=== PATIENT | female | born 1945 | race Caucasian/White ===

== ENCOUNTER 2021-06-11 09:27 | Inpatient (IN) | payer BC, MEDICARE ==
[~2021-06-11] VITALS: Ht 162.6 cm; Wt 89.1 kg
[2021-06-11] MEDS ORDERED: diphenhydrAMINE 25 MG TAB (BENADRYL) PO PRN (09:45)
[2021-06-11] MEDS ORDERED: CALCIUM CARBONATE 500 MG (TUMS) TAB.CHEW PO PRN (09:45)
[2021-06-11] MEDS ORDERED: ONDANSETRON 4 MG (ZOFRAN) ORAL DISSOLVE TAB PO PRN (09:45)
[2021-06-11] MEDS ORDERED: LOPERAMIDE 2 MG (IMODIUM) TABLET PO PRN (09:45)
[2021-06-11] MEDS ORDERED: ALPRAZolam 0.25 MG (XANAX) TAB PO PRN ×2 (09:45→12:45)
[2021-06-11] MEDS ORDERED: guaiFENesin/CODEINE (ROBITUSSIN AC) 10ML UDC PO PRN (09:45)
[2021-06-11] MEDS ORDERED: BISACODYL 10 MG SUPP (DULCOLAX) PR PRN (09:45)
[2021-06-11] MEDS ORDERED: MELATONIN 3 MG TABLET PO PRN (09:45)
[2021-06-11] MEDS ORDERED: LACTULOSE SYRUP 10GM/15ML (ENULOSE) 30ML UDC PO PRN (09:45)
[2021-06-11] MEDS ORDERED: DOCUSATE SODIUM 100 MG (COLACE) CAP PO PRN (09:45)
[2021-06-11] MEDS ORDERED: ACETAMINOPHEN 325 MG TABLET PO PRN (09:45)
[2021-06-11] MEDS ORDERED: FLEET ENEMA ADULT 1 EA BTL PR PRN (09:45)
[2021-06-11 12:15] VITALS: BP 127/71
--- OUTSIDE RECORDS SUMMARY | 2021-06-11 12:16 | XMS REPORT | Clinical Summary ---
Author Author [facility] Address Unknown Phone Unavailable Care Team Providers Care Part Maker Name Role Phone Eliazar Gibson MD PCP Allergies No known active allergies Medications End Date Status Medication Sig Dispensed Refills Start Date Active ALPRAZolam (XANAX) 1 MG Take 1 mg by 0 tablet mouth at bedtime as needed for Sleep. Active carvedilol (COREG) 25 MG Take 25 mg by 0 tablet mouth 2 (two) times daily with meals. Active lisinopril-hydrochlorothi Take 1 tablet 0 azide by mouth (PRINZIDE,ZESTORETIC) daily. 20-12.5 MG per tablet Active canagliflozin (INVOKANA) Take 300 mg 0 300 MG tablet by mouth every morning before breakfast. Active SITagliptin (JANUVIA) 100 Take 100 mg 0 MG tablet by mouth daily. Active omeprazole (PRILOSEC) 20 Take 20 mg by 0 MG capsule mouth daily. Active venlafaxine (EFFEXOR-XR) Take 150 mg 0 150 MG 24 hr capsule by mouth daily. Active venlafaxine (EFFEXOR-XR) Take 75 mg by 0 75 MG 24 hr capsule mouth at bedtime. Active aspirin EC (ECOTRIN) 325 Take 1 tablet 70 tablet 0 MG EC tabletIndications: (325 mg 7 Closed fracture of left total) by hip requiring operative mouth 2 (two) repair, initial encounter times daily. ([facility]) Additional Information Patient not taking. Reported on 03/17/2017 Active calcium-vitamin D Take 1 tablet 91 tablet 0 (OSCAL-500) 500-200 by mouth 7 MG-UNIT per daily. tabletIndications: Closed fracture of left hip requiring operative repair, initial encounter ([facility]) Active hydrocodone-acetaminophen Take 1 tablet 121 tablet 0 (NORCO) 7.5-325 by mouth 7 MGIndications: Closed every 6 (six) fracture of left hip hours as requiring operative needed for repair, initial encounter Moderate ([facility]) Pain. Do not exceed a daily dose of 4 tablets Additional Information Patient not taking. Reported on 04/28/2017 Active senna (SENOKOT) 8.6 MG Take 1 tablet 60 tablet 0 1 tabletIndications: Closed by mouth 7 fracture of left hip daily. requiring operative repair, initial encounter ([facility]) Active vitamin C (ASCORBIC ACID) Take 1 tablet 50 tablet 0 500 MG tabletIndications: (500 mg 7 Closed fracture of left total) by hip requiring operative mouth daily. repair, initial encounter ([facility]) Active vitamin D, Take 1 8 capsule 0 ergocalciferol, 27045 capsule 7 units CAPSIndications: (50,000 Units Closed fracture of left total) by hip requiring operative mouth every 7 repair, initial encounter days. ([facility]) Active Problems Problem Noted Date Closed fracture of left hip requiring operative repai r with routine 01/13/2017 healing, subsequent encounter Diabetes mellitus, type 2 12/19/2016 Essential hypertension 12/19/2016 Hip fracture requiring operative repair 12/19/2016 Thrombocytopenia 12/19/2016 Immunizations Name Administration Dates Next Due INFLUENZA IIV3 HD (Adults 01/08/2017, 12/31/2015, =>65 y/o-FLUZONE HD) Influenza IIV3 MDV 01/25/2013 (Multi-dose vial) Influenza TIV (HX thru 01/30/2005 Dec 13 2009) Pneumococcal Conjugate 12/11/2014 (13-valent) Pneumococcal 09/29/2008 Polysaccharide (23-valent) Td(adult), adsorbed 12/14/2013 Social History Date Tobacco Use Types Packs/Day Years Used Never Smoker Smokeless Tobacco: Never Used Sex Assigned at Date Recorded Not on file Last Filed Vital Signs Reading Time Taken Comments Vital Sign 121/45 12/22/2016 3:58 PM CDT Blood Pressure 85 12/22/2016 3:58 PM CDT Pulse 36.7 C (98.1 F) 12/22/2016 3:58 PM CDT Temperature 16 12/22/2016 3:58 PM CDT Respiratory Rate 100% 12/22/2016 3:58 PM CDT Oxygen Saturation - - Inhaled Oxygen Concentration 80.8 kg (178 lb 1.6 oz) 12/22/2016 4:00 AM CDT Weight 162.6 cm (5' 4.02") 12/22/2016 4:00 AM CDT Height 30.56 12/22/2016 4:00 AM CDT Body Mass Index Plan of Treatment Health Maintenance Due Date Last Done Comments DEXA Scan 1943 COVID-19 Vaccine (1) 1955 Annual Wellness Visit 1961 Hepatitis C Screening 1961 Zoster Vaccine (1 of 2) 1993 DTaP,Tdap,and Td Vaccines 12/15/2013 12/14/2013 (1 - Tdap) Influenza Vaccine (#1) 2020 01/08/2017, 12/31/2015, 01/15/2015, Additional history exists Pneumo-Vaccine: 65+Yrs Completed 12/11/2014, 09/29/2008 Pneumo-Vaccine: Peds (0-5 Aged Out 12/11/2014, No l onger eligible based on patient's age to Yrs) & At-Risk Patients 09/29/2008 complete this topic (6-64 Yrs) HIB Vaccines Aged Out No longer eligible based on patient's age to complete this topic IPV Vaccines Aged Out No longer eligible based on patient's age to complete this topic Meningococcal Vaccine Aged Out No longer eligib le based on patient's age to complete this topic Rotavirus Vaccines Aged Out No longer eligible based on patient's age to complete this topic Medical Devices Device Identifier Shelf Expiration Date Model / Serial / L ot Implanted Type Area Manufactur er 219.99 / / Washer 13mm 219.99 - [id number] Left: Hip * Retir ed Implanted: Qty: 1 on 12/19/2016 by *Boaz Fields MD at [facility] Results Not on filefrom Last 3 Months Insurance Type Payer Benefit Subscriber ID Effective Phone Address Plan / Dates Group WORK COMP THE ACCIDENT WORK COMP [id number] 2016- Box FUND THE Present [id number] ACCIDENT Teena, [facility] [id number] PPO BCBS BCBS BLUE [id number] 2016- [address] CHOICE Present [place] [id number] Medicare MEDICARE MEDICARE [id number] 2008-P [address] [place] [address] Advance Directives For more information, please contact: [phone] 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
--- OUTSIDE RECORDS SUMMARY | 2021-06-11 12:16 | XMS REPORT | Clinical Summary ---
Author Author [facility] Organization [facility] Address Unknown Phone Unavailable Care Team Providers Care Spot Worker Name Role Phone Eliazar Gbison MD PCP Tena Soto MD Unavailable Source Comments Some departments are not documenting in the electronic medical record. If you d o not see the information that you expected, contact [facility] department at [phone] for further assistan ce in locating additional records.[facility] Allergies Not on File Medications End Date Status Medication Sig Dispensed Refills Start Date Active sitaGLIPtin (JANUVIA) 100 Take 100 mg 0 mg tab tablet by mouth daily. Active LISINOPRIL PO Take 12.5 mg 0 by mouth daily. Active venlafaxine XR (EFFEXOR Take 225 mg 0 XR) 225 mg tablet by mouth daily. Active Omeprazole 20 mg TbEC Take by 0 mouth daily. Active carvedilol (COREG) 25 mg Take 25 mg by 0 tablet mouth twice daily with meals. Active ALPRAZolam (XANAX) 1 mg Take 1 mg by 0 tablet mouth at bedtime as needed. Active canagliflozin (INVOKANA) Take 300 mg 0 300 mg tablet by mouth daily with breakfast. Active ACETAMINOPHEN (TYLENOL Take by 0 PO) mouth. Active Problems Problem Noted Date Atypical hyperplasia of fallopian tube 09/05/2015 Overview: Formatting of this note might be differ ent from the original. 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 An in office EMB showed atypical micropapillary groups suspicio us for malignancy. A D&C was done on 02/16/2015 which was negative fo r malignancy or hyperplasia. Discussion of options given; patient wa nted surgery but elected to delay until school was out. On 08/20/2015 she underwent a TLHBSO, wit h D&C, hysteroscopy. 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 She is now being referred to my office. Pathology: 1. Endometrium: negative for hyperplasi a and malignancy. Serosa and myometrium also negative. Fallopian tub es: carcinoma in situ, serous type, 1 mm focus. Extensive stypical hyperpla deysi, bilateral. Negative for invasive malignancy. Ovaries negative. 2. D&C: [facility] 02/16/2015: atrophic endomet rium. No hyperplasia or malignancy. 3. EMB: atypical micropapillary groups suspicious for malignancy (02/01/2015 at [facility]) 4. Read here at [facility]: Final Diagnosis: A. 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 Ovaries, bilateral: No diagnostic abnor malities. Cervix: No diagnostic abnormalities. Endometrium: Atrophy; negative for hype rplasia and malignancy. Myometrium: Mural and subserosal leiomy omata. Serosa: No diagnostic abnormalities. Radiology/procedures: 1. CT: no 2. Ultrasound: 02/12/2015: ET: mildly t hickened with bilayer thickness at 7 mm. Neither ovary is well seen 3. Other: no PMH: 1. Any history of problems with heart/lung/kidney/liver/hepatitis/DM/th yroid disease/hematologic disorders/DVT: 2. DM 3.HTN 4. Arthritis- back and right shoulder 5. GERD 6. Skin cancer 7. Degenerative disk in back 8. Depression 9. Urinary incontinence 10. Uterine prolapse PSH: 1. Basal cell carcinoma left side of no se excised 2. A&P repair with sacral lig plication 1995 3. TOT and A&P repair with mesh 2008. K ept uterus 4. c-scope 2007 5. Left great toe surgery 2011 7. Cataracts 2013 8. Tubal 1974 8. 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 2. Menarche: 12 3. LMP/menopausal:1995 4. OCP/ERT/HRT: OCP x 11 years. No HRT 5. control-current: na 6. STDs: no 7. Sexually active: no 8. Fibroids/endometriosis: no 9. If premenopausal, menstrual pattern, normal: na 10. Last pap smear: 02/01/2015: negati ve SH: 1. Smoke: former smoker. 10 cig/day x 2. Drugs: no 3. ETOH: no 4. Occupation: works at [employer] in [place], [place] 5. Marital status: 6. Last colonoscopy: 2011 09. Last Mammogram: < 1 year FH: 1. Cancer: mother: uterine cancer; fath er: Prostate cancer; nieces: one with breast cancer and another with ova cynthia cancer. Testicular cancer in her grandson Last Assessment & Plan: Formatting of this note might be differ ent from the original. She does not have an invasive malignanc y, and by surgical report, there was nothing outside of the uterus/tubes/ova leslie that was suspicious. Slides reread here confirm diagnosis of STIC. Surgical staging or repeat operative in tervention is not required. She had a completion TLHBSO. She does not need chemotherapy either. However, I do recommend follow up with q 6 months with CA125 and examinations x 2 years, then yearly . Even though the laparoscopic procedure was negative, would do a CT A /P to ensure nothing else is ongoing. With respect to her family history, I r ecommend genetic testing and will make arrangements for her to see a gene tic counselor. I am especially concerned about a BRCA mutation based u maday her family history. This will help her ([facility] to keep her appointment) as well as her family. Also recommended that her niece also get alana christina. Surgical History Surgery Date Site/Laterality Comments HX HYSTERECTOMY 08/20/15 BLADDER SURGERY DILATION AND CURETTAGE Medical History Medical History Date Comments Skin cancer, basal cell Diabetes mellitus (HCC) Hypertension Family History Medical History Relation Name Comments Cancer-Thyroid Brother Cancer-Prostate Father Diabetes Maternal Grandmother Cancer-Uterine Mother Diabetes Sister Relation Name Status Comments Brother Father Maternal Grandmother Mother Sister Social History Date Tobacco Use Types Packs/Day Years Used Quit: 08/14/1988 Former Smoker Cigarettes 0.25 5 Comments Alcohol Use Standard Drinks/Week No 0 (1 standard drink = 0.6 o z pure alcohol) Sex Assigned at Date Recorded Not on file Obstetrics History Last Filed Vital Signs Reading Time Taken Comments Vital Sign 120/49 09/06/2015 2:42 PM CDT Blood Pressure 64 09/06/2015 2:42 PM CDT Pulse 36.4 C (97.6 F) 09/06/2015 2:42 PM CDT Temperature - - Respiratory Rate 99% 09/06/2015 2:42 PM CDT Oxygen Saturation - - Inhaled Oxygen Concentration 79.9 kg (176 lb 3.2 oz) 09/06/2015 2:42 PM CDT Weight 167.6 cm (5' 6") 09/06/2015 2:42 PM CDT Height 28.44 09/06/2015 2:42 PM CDT Body Mass Index Plan of Treatment Health Maintenance Due Date Last Done Comments COVID-19 VACCINE (1) 1948 DTAP/TDAP VACCINES (1 - 1961 Tdap) HEPATITIS C SCREENING 1961 PHYSICAL (COMPREHENSIVE) 1961 EXAM SHINGLES RECOMBINANT 1993 VACCINE (1 of 2) OSTEOPOROSIS 2008 SCREENING/MONITORING PNEUMONIA (PPSV23) 2008 VACCINE (1 of 1 - PPSV23) INFLUENZA VACCINE 10/14/2020 Results Not on filefrom Last 3 Months Insurance Type Payer Benefit Subscriber ID Effective Phone Address Plan / Dates Group PPO BCBS [facility] [id number] 2009-P [phone] [id number] [facility] [place] [address] Medicare MEDICARE MEDICARE [id number] 2008-P [phone] [address] resent [address] [place] [address] [address] (Home) [place] [phone] Advance Directives Patient [employer] Consultant Explanation Type Date Recorded Advance 08/28/2015 9:29 AM Directive/DPOA Care Teams Start Date End Date Spot Worker Relationship Specialty 08/29/15 Eliazar Gibson MD PCP - [address] [address] 09/04/15 Tena Soto MD [facility]st[facility] & [id number] [facility] [address] [place] [address]
--- NOTE | 2021-06-11 12:33 | PM&R Post Admission Assessment ---
PM&R HP Date of Visit: Jun 11, 2021 Time of Visit: 12:35 History of Present Illness Chief complaint: Lumbar stenosis with radiculopathy History present illness: This is a 76-year-old white female who still works at [employer] and the [employer] district who presents from home after an unsuccessful post discharge from postoperative hospital course the next day after surgery. Dr. Walsh completed the surgery and an uncomplicated manner and she was deemed stable for discharge but she had multiple falls when she and her son and daughter stayed in [place] the night after discharge and then continued issues at home causing sleep deprivation due to disrupted sleep cycle from severe lumbar spasms. Her son is visiting from [place]. Her daughter lives in [place]. Her bowels are moving so no issues there. Blood sugars are elevated so we will restart home medication and initiate a sliding scale. CC: Intermittent Sharp Back Pain due to L3-4 Lumbar Stenosis HPI: 76yo F with history of chronic axial and mechanical lower back pain with associated radicular/claudication symptoms greater on right than left LE with decreased mobility and falls presents for sharp intermittent lower back pain. On 03/07/21, MRI revealed severe central canal stenosis at L3-4 (R>L), L3 vertebral body hemangioma, and lumbar spondylosis. Has tried PT and 2x L3-4 lumbar epidural spinal injections (most recent 04/26/21) with no improvement. On 06/05/21, lumbar interbody fusion lateral direct L3-4 DLIF and posterior laminectomy was performed by Dr. Walsh. On 05/31/21, evaluated by Dr. Walsh and lumbar spine xray showed moderate to severe spondylosis at multiple levels and discharged on 06/06/21. On 06/07/21, patients daughter reports patient fell 3x: fell on her knees while getting in her car, at hotel lobby, and in her room hitting bed/floor. Another xray on 06/07/21 showed L3-4 DLIF and multilevel lumbar spondylosis. Referred to inpatient rehab at [facility] for intensive therapy and medical management. PMH: Anxiety, Arthritis, Cervical Cancer, Depression, DM, GERD, HTN, HLD PSH: Lumbar epidural steroid injection L3-4 x2, L Hip Surgery, Hysterectomy, Cheilectomy, Tubal Ligation, Bladder Suspension x2 Allergies: NKDA Meds: Lisinopril 5mg DAILY PO Carvedilol 25mg BID PO AC Cyclobenzaprine 10mg TID DAILY PRN Amitriptyline 10mg DAILY PO HS Aripiprazole 2mg DAILY PO HS Hydrocodone-acetaminophen 325mg TAB BID PRN Lisinopril-Hydrochlorothiazide 12.5mg TAB DAILY PO Omeprazole 20mg TAB DAILY PO Temazepam 15mg DAILY PO HS Venlafaxine 150mg DAILY PO HS Dapagliflozin 10mg TAB DAILY PO Glimepiride 4mg TAB BID PO AC SH: Denies smoking or alcohol use FH: Mother (Malachi Salgado) ROS: Constitutional: No chills, No fever, No weakness EENTM: No ear pain, No blurred vision, No eye pain, No throat pain Respiratory: No cough, No dyspnea on exertion, No hemoptysis Cardiovascular: No chest pain, No edema, No palpitations Gastrointestinal: No constipation, No diarrhea, No nausea, No vomiting Genitourinary: No dysuria, No frequency, No incontinence Musculoskeletal: back pain (Intermittent); No muscle pain, No neck pain Skin: No lesions, No lumps, No rash Psychiatric/Neurological: Denies Anxiety, Denies Depressed, Denies Headache Exam: General Appearance: No Apparent Distress, WD/WN, Chronically ill HEENT: PERRL/EOMI, Normal ENT Inspection, Pharynx Normal Neck: Full Range of Motion, Normal Inspection, Non Tender, Supple Respiratory: Chest Non Tender, Lungs Clear, Normal Breath Sounds, No Accessory Muscle Use, No Respiratory Distress Cardiovascular: Regular Rate, Rhythm, No Edema Gastrointestinal: Non Tender, Soft Back: Normal Inspection, No Vertebral Tenderness Extremity: Normal Inspection, Normal Range of Motion, Non Tender, No Pedal Edema Neurologic/Psychiatric: Alert, Oriented x3, No Motor/Sensory Deficits, Normal Mood/Affect Skin: Normal Color, Warm/Dry Assessment: Falls s/p L3-4 LLIF/laminectomy/MIS PSIF on 06/05/21 Chronic Mechanical Lower Back Pain Lumbar spondylosis (most severe at L1-2) HTN GERD Diabetes Mellitus HLD Depression GERD Anxiety Plan: PT OT Fall Risk Nutritional services program services assistant DVT ppx: RIZWAN Pedro Jun 11, 2021 13:54 <Created by RIZWAN MULLER > Past Tnuopse-Lastxm-Enmzup Hx Past Med/Social Hx: Reviewed Nursing Past Med/Soc Hx, Reviewed and Corrections made Patient Social History Marrital Status: single Employed/Student: employed Alcohol Use: Denies Use Smoking Status: Never a Smoker Past Medical History Surgeries: Hysterectomy, Orthopedic Cardiac: High Cholesterol, Hypertension Genitourinary: Bladder Infection Gastrointestinal: Gastroesophageal Reflux Musculoskeletal: Degenerate Disk Disease, Arthritis, Chronic Back Pain Endocrine: Diabetes, Non-Insulin dep Cancer: Cervical Psychosocial: Sleep Difficulties, Depression PM&R Allergy/Meds/Data Review Allergies Coded Allergies: No Known Drug Allergies (Unverified , 06/11/21) Home Medications Scheduled Amitriptyline HCl (Amitriptyline HCl), 10 MG PO HS, (Reported) Aripiprazole (Aripiprazole), 2 MG PO HS, (Reported) Carvedilol (Carvedilol), 25 MG PO BID, (Reported) Cyclobenzaprine HCl (Cyclobenzaprine HCl), 10 MG PO TID, (Reported) Dapagliflozin Propanediol (Farxiga), 10 MG PO DAILY, (Reported) Gabapentin (Gabapentin), 100 MG PO HS, (Reported) Glimepiride (Glimepiride), 4 MG PO BID, (Reported) Lisinopril/Hydrochlorothiazide (Lisinopril-Hctz 20-12.5 mg Tab), 1 EA PO DAILY, (Reported) Omeprazole (Omeprazole), 20 MG PO DAILY, (Reported) Temazepam (Temazepam), 15 MG PO HS, (Reported) Venlafaxine HCl (Venlafaxine HCl ER), 150 MG PO HS, (Reported) Scheduled PRN ALPRAZolam (ALPRAZolam), 0.25 MG PO BID PRN for ANXIETY, (Reported) Hydrocodone/Acetaminophen (Hydrocodone-Acetamin 7.5-325), 1 EA PO Q4H PRN for PAIN-MODERATE (5-7), (Reported) Current Medications Current Medications Reviewed Review of Systems Constitutional: see HPI, dizziness, malaise, weakness EENTM: no symptoms reported Respiratory: no symptoms reported Cardiovascular: no symptoms reported Gastrointestinal: no symptoms reported Genitourinary: decreased output Musculoskeletal: back pain, joint pain Skin: no symptoms reported Psychiatric/Neurological: Anxiety, Depressed All Other Systems Reviewed Negative Unless Noted: Yes Physical Exam Physical Exam Vital Signs Vital Signs - First Documented 06/11/21 12:15 Temp 36.1 Pulse 20 Resp 96 B/P (MAP) 127/71 (89) Pulse Ox 96 O2 Delivery Room Air Capillary Refill : Height, Weight, BMI Height: '" Weight: lbs. oz. kg; BMI Method: General Appearance: No Apparent Distress, WD/WN, Chronically ill, Obese Eyes: Bilateral Eye Normal Inspection, Bilateral Eye PERRL HEENT: PERRL/EOMI, Normal ENT Inspection, Pharynx Normal Neck: Full Range of Motion, Normal Inspection, Non Tender, Supple, Carotid Bruit Respiratory: Chest Non Tender, Lungs Clear, Normal Breath Sounds, No Accessory Muscle Use, No Respiratory Distress Cardiovascular: Regular Rate, Rhythm, No Edema, No Gallop, No JVD, No Murmur, Normal Peripheral Pulses Gastrointestinal: Normal Bowel Sounds, No Organomegaly, No Pulsatile Mass, Non Tender, Soft Back: Normal Inspection, Decreased Range of Motion, Muscle Spasm, Vertebral Tenderness Extremity: Normal Capillary Refill, Normal Inspection, Normal Range of Motion, Non Tender, No Calf Tenderness, No Pedal Edema Neurologic/Psychiatric: Alert, Oriented x3, No Motor/Sensory Deficits, dental equipment mechanic II- XII Norm as Tested, Depressed Affect Skin: Normal Color, Warm/Dry Lymphatic: No Adenopathy PM&R Medical Assessment & Plan REHAB/MEDICAL ASSESSMENT AND PLAN: REHAB IMPAIRMENT GROUP: [ ] ETIOLOGIC DIAGNOSIS: [ (condition that led to rehab admission) ] The comorbidities that impact the patients function and/or functional outcome by: [ ] REHAB PLAN: The patient is being admitted to our comprehensive inpatient rehabilitation facility and can tolerate the intensity of service consisting of at least: 180 minutes of therapy a day, 5 out of 7 days a week Rehab treatment will consist of: [ (write brief focus that includes physician, rehab nursing and therapies/modalitiesIPOC will have more specifics) ] The patient/family has a good understanding of our discharge process and will benefit from an interdisciplinary inpatient rehabilitation program. The patient has potential to make improvement and is in need of at least two of the following multidisciplinary therapies including but not limited to physical, occupational, speech, and prosthetics and orthotics. Additionally the patient will need services from respiratory, nutritional services, wound care, psychology, etc. (Customize this to each patient). Given the patients complex condition and risk of further medical complications, rehabilitation services cannot be safely or effectively provided at a lower level of care such as a long-term facility. BARRIERS TO DISCHARGE: [ ] ESTIMATED LOS: [ ] DISPOSITION: [ ] RELEVANT CHANGES SINCE PREADMISSION SCREENING: I have compared the patients medical and functional status at the time of the preadmission screening and there are: [no changes] [changes as follows: (if there is a discrepancy between the IGC/Etiologic stated on the PAS, address/clarify this as well) ] PROGNOSIS: [ ] REHABILITATION GOALS: 1. [ (specific to the patient) ] All the above goals were reviewed with the patient and he/she is in agreement. By signing this document, I acknowledge that I have personally performed a full physical examination on this patient within 24 hours of admission to this inpatient rehabilitation facility and have determined the patient to be able to tolerate the above course of treatment at an intensive level for a reasonable period of time. I will be completing a detailed individualized Plan of Care for this patient by day #4 of the patients stay based upon the Preadmission Screen, the Post-Admission Evaluation, and the therapy evaluations. Admission Dx/Comorbidities: (1) Lumbar stenosis ICD Codes: M48.061 - Spinal stenosis, lumbar region without neurogenic claudication (2) Diabetes ICD Codes: E11.9 - Type 2 diabetes mellitus without complications (3) Hypertension ICD Codes: I10 - Essential (primary) hypertension Assessment/Plan Assessment and Plan Assess & Plan/Chief Complaint Assessment: s/p L3-4 LLIF/laminectomy/MIS PSIF on 06/05/[address] Walsh uncomplicated Multiple falls following discharge from [facility] Disruptive sleep cycle postoperatively Chronic Mechanical Lower Back Pain Lumbar spondylosis (most severe at L1-2) HTN GERD Diabetes Mellitus HLD Depression GERD Anxiety Plan: Aggressive rehab Blood sugar management Home meds Supportive care CRIS CASTAEÑDA DO Jun 11, 2021 12:33
[2021-06-11] MEDS ORDERED: OMEP20CA18 PO (12:35)
[2021-06-11] MEDS ORDERED: AMT10T PO (12:35)
[2021-06-11] MEDS ORDERED: HYDR-3817 PO (12:35)
[2021-06-11] MEDS ORDERED: TEMA15CA PO (12:35)
[2021-06-11] MEDS ORDERED: ALPR0.254 PO (12:35)
[2021-06-11] MEDS ORDERED: ARIP2TAB20 PO (12:35)
[2021-06-11] MEDS ORDERED: GABA-486 PO (12:35)
[2021-06-11] MEDS ORDERED: GLIM4TAB5 PO (12:35)
[2021-06-11] MEDS ORDERED: VENL150C98 PO (12:35)
[2021-06-11] MEDS ORDERED: CYCL10TA25 PO (12:35)
[2021-06-11] MEDS ORDERED: CARV25TA PO (12:35)
[2021-06-11] MEDS ORDERED: DAPA10TA PO (12:35)
[2021-06-11] MEDS ORDERED: LISI1TAB46 PO (12:35)
[2021-06-11] MEDS ORDERED: RX-CYCLOBENZAPRINE 10 MG (FLEXERIL) TAB PPK#3 PO SCH (13:00)
--- NOTE | 2021-06-11 13:09 | Physical Therapy Evaluation ---
PT Evaluation-General Medical Diagnosis Admission Date Jun 11, 2021 at 12:03 Medical Diagnosis: lumbar laminectomy and fusion Onset Date: Jun 05, 2021 Therapy Diagnosis Therapy Diagnosis: impaired mobility Weight Bear Status back precautions, brace on when out of bed Referral Physician: Barbara Hawley DO Reason for Referral: Evaluation/Treatment Medical History Pertinent Medical History: Arthritis, DM, GERD, HTN Additional Medical History anxiety, cervical cancer, depression, hyperlipidemia Reviewed History: Yes Social History Home: Single Level Current Living Status: Alone Entry Into Home: Ramp Prior Prior Level of Function SCALE: Activities may be completed with or without assistive devices. 9-Muzeudfxdu-mprruyh completes the activity by him/herself with no assistance from a helper. 5-Set-up or Clean-up Assistance-helper sets up or cleans up; patient completes activity. Alpine assists only prior to or following the activity. 4-Supervision or Touching Assistance-helper provides verbal cues and/or touching/steadying and/or contact guard assistance as patient completes activity. Assistance may be provided throughout the activity or intermittently. 3-Partial/Moderate Assistance-helper does LESS THAN HALF the effort. Alpine lifts, holds or supports trunk or limbs, but provides less than half the effort. 2-Substantial/Maximal Assistance-helper does MORE THAN HALF the effort. Alpine lifts or holds trunk or limbs and provides more than half the effort. 1-Zkwubdava-ktrtnt does ALL the effort. Patient does none of the effort to complete the activity. Or, the assistance of 2 or more helpers is required for the patient to complete the activity. If activity was not attempted, code reason: 7-Patient Refused. 9-Not Applicable-not attempted and the patient did not perform the activity before the current illness, exacerbation or injury. 10-Not Attempted due to Environmental Limitations-(lack of equipment, weather restraints, etc.). 88-Not Attempted due to Medical Conditions or Safety Concerns. Bed Mobility: 6 Transfers (B,C,W/C): 6 Gait: 6 Indoor Mobility (Ambulation): Independent Prior Devices Use: Walker PT Evaluation-Current Subjective Patient in family transport pre tx, agrees to PT, has 6/10 pain in back. Pt/Family Goals to be independent at home Objective Patient Orientation: Person, Place, Situation back brace ROM/Strength ROM Lower Extremities WNL Strength Lower Extremities LLE (hip flexion 3/5, knee flexion 4/5, knee extension 4/5, dorsiflexion 4/5), RLE (hip flexion 3/5, knee flexion 4/5, knee extension 4/5, dorsiflexion 4/5) Sensory Vision: Functional Hearing: Functional Sensation Right Lower Extremit: Intact Sensation Left Lower Extremity: Intact Transfers Roll Left & Right (QC): 10 Sit to Lying (QC): 10 Lying to Sitting/Side of Bed(Q: 10 Sit to Stand (QC): 4 Chair/Sai-yx-Urjmu Xfer(QC): 4 Toilet Transfer (QC): 4 Car Transfer (QC): 4 Patient performs sit <-> stand and transfers with CGA. Occasional cues for positioning and safety. Gait Walk 10 feet (QC): 10 Walk 50 ft with 2 Turns(QC): 10 Walk 150 ft (QC): 10 Walking 10ft/uneven surface-QC: 10 Wheelchair Training Wheel 50 ft with 2 turns (QC): 9 Wheel 150 ft (QC): 9 Stairs 1 Step (curb) (QC): 10 4 Steps (QC): 10 12 Steps (QC): 10 Balance Sitting Static: Normal Sitting Dynamic: Normal Standing Static: Good Standing Dynamic: Good Picking up an Object (QC): 10 Assessment/Needs Patient has impaired mobility, strength, endurance. She is just CGA with transfers. Rehab Potential: Fair PT Short Term Goals Short Term Goals Time Frame: Jun 18, 2021 Roll Left & Right: 5 Sit to lyin Lying to sitting on side of be: 5 Sit to stand: 4 (SBA) Chair/oei-qz-idbkv transfer: 4 (SBA) Walk 10 feet: 4 (SBA) Walk 50 feet with two turns: 4 (SBA) Walk 150 feet: 4 (SBA) PT Cardiovascular Radiologic Technologist Goals Long-Term Goals PT Long-Term Goals Time Frame: Jul 02, 2021 Roll Left & Right (QC): 6 Sit to Lying (QC): 6 Lying-Sitting on Side/Bed(QC): 6 Sit to Stand (QC): 6 Chair/Yoi-re-Vuiuy Xfer(QC): 6 Toilet Transfer (QC): 6 Car Transfer (QC): 6 Does the Patient Walk: Yes Walk 10 feet (QC): 6 Walk 50ft with 2 Turns (QC): 6 Walk 150 ft (QC): 6 Walking 10ft on Uneven Surface: 6 1 Step (curb) (QC): 4 4 Steps (QC): 4 12 Steps (QC): 88 Picking up an Object (QC): 6 (using dairy consultant) Wheel 50 feet with 2 turns (QC: 9 Wheel 150 feet: 9 PT Plan Problem List Problem List: Activity Tolerance, Functional Strength, Safety, Balance, Gait, Transfer, Bed Mobility, ROM Treatment/Plan Treatment Plan: Continue Plan of Care Treatment Plan: Bed Mobility, Education, Functional Activity Abimael, Functional Strength, Group Therapy, Gait, Safety, Therapeutic Exercise, Transfers Treatment Duration: Jul 02, 2021 Frequency: At least 5 of 7 days/Wk (IRF) Estimated Hrs Per Day: 1.5 hours per day Patient and/or Family Agrees t: Yes Safety Risks/Education Patient Education: Transfer Techniques, Reviewed Precautions, Correct Positioning, Safety Issues Teaching Recipient: Patient Teaching Methods: Demonstration, Discussion Response to Teaching: Reinforcement Needed Discharge Recommendations Plan Patient will perform bed mobility and transfer training, balance and endurance training, functional strengthening, stair training, gait training, and education, to improve functional mobility and independence at home. Therapy Discharge Recommendati: Home & Family, Post Acute PT Time/GCodes Time In: 1155 Time Out: 1205 Total Billed Treatment Time: 10 Total Billed Treatment 1 visit SAUL ROCHA PT Jun 11, 2021 13:09
[2021-06-11] MEDS: HYDROcodone/APAP 7.5 MG/325 MG (LORTAB, LORCET PLUS) TABLET PO PRN ×3 (13:35→21:31)
--- NOTE | 2021-06-11 13:54 | Progress Note ---
RIZWAN MULLER 06/11/21 1354: Progress Note CC: Intermittent Sharp Back Pain due to L3-4 Lumbar Stenosis HPI: 76yo F with history of chronic axial and mechanical lower back pain with associated radicular/claudication symptoms greater on right than left LE with decreased mobility and falls presents for sharp intermittent lower back pain. On 03/07/21, MRI revealed severe central canal stenosis at L3-4 (R>L), L3 vertebral body hemangioma, and lumbar spondylosis. Has tried PT and 2x L3-4 lumbar epidural spinal injections (most recent 04/26/21) with no improvement. On 06/05/21, lumbar interbody fusion lateral direct L3-4 DLIF and posterior laminectomy was performed by Dr. Walsh. On 05/31/21, evaluated by Dr. Walsh and lumbar spine xray showed moderate to severe spondylosis at multiple levels and discharged on 06/06/21. On 06/07/21, patients daughter reports patient fell 3x: fell on her knees while getting in her car, at hotel lobby, and in her room hitting bed/floor. Another xray on 06/07/21 showed L3-4 DLIF and multilevel lumbar spondylosis. Referred to inpatient rehab at [facility] for intensive therapy and medical management. PMH: Anxiety, Arthritis, Cervical Cancer, Depression, DM, GERD, HTN, HLD PSH: Lumbar epidural steroid injection L3-4 x2, L Hip Surgery, Hysterectomy, Cheilectomy, Tubal Ligation, Bladder Suspension x2 Allergies: NKDA Meds: Lisinopril 5mg DAILY PO Carvedilol 25mg BID PO AC Cyclobenzaprine 10mg TID DAILY PRN Amitriptyline 10mg DAILY PO HS Aripiprazole 2mg DAILY PO HS Hydrocodone-acetaminophen 325mg TAB BID PRN Lisinopril-Hydrochlorothiazide 12.5mg TAB DAILY PO Omeprazole 20mg TAB DAILY PO Temazepam 15mg DAILY PO HS Venlafaxine 150mg DAILY PO HS Dapagliflozin 10mg TAB DAILY PO Glimepiride 4mg TAB BID PO AC SH: Denies smoking or alcohol use FH: Mother (Scleraderma, Menieres) ROS: Constitutional: No chills, No fever, No weakness EENTM: No ear pain, No blurred vision, No eye pain, No throat pain Respiratory: No cough, No dyspnea on exertion, No hemoptysis Cardiovascular: No chest pain, No edema, No palpitations Gastrointestinal: No constipation, No diarrhea, No nausea, No vomiting Genitourinary: No dysuria, No frequency, No incontinence Musculoskeletal: back pain (Intermittent); No muscle pain, No neck pain Skin: No lesions, No lumps, No rash Psychiatric/Neurological: Denies Anxiety, Denies Depressed, Denies Headache Exam: General Appearance: No Apparent Distress, WD/WN, Chronically ill HEENT: PERRL/EOMI, Normal ENT Inspection, Pharynx Normal Neck: Full Range of Motion, Normal Inspection, Non Tender, Supple Respiratory: Chest Non Tender, Lungs Clear, Normal Breath Sounds, No Accessory Muscle Use, No Respiratory Distress Cardiovascular: Regular Rate, Rhythm, No Edema Gastrointestinal: Non Tender, Soft Back: Normal Inspection, No Vertebral Tenderness Extremity: Normal Inspection, Normal Range of Motion, Non Tender, No Pedal Edema Neurologic/Psychiatric: Alert, Oriented x3, No Motor/Sensory Deficits, Normal Mood/Affect Skin: Normal Color, Warm/Dry Assessment: Falls s/p L3-4 LLIF/laminectomy/MIS PSIF on 06/05/21 Chronic Mechanical Lower Back Pain Lumbar spondylosis (most severe at L1-2) HTN GERD Diabetes Mellitus HLD Depression GERD Anxiety Plan: PT OT Fall Risk Nutritional services gate services supervisor DVT ppx: BARBARA Biggs DO 06/12/21 0558: Supervisory-Addendum Brief Verification & Attestation Participated in pt care: history, MDM, physical Personally performed: exam, history, MDM, supervision of care Care discussed with: Medical Student Procedures: n/a Results interpretation: Verified all documentation Verification and Attestation of Medical Student E/M Service A medical student performed and documented this service in my presence. I reviewed and verified all information documented by the medical student and made modifications to such information, when appropriate. I personally performed the physical exam and medical decision making. Barbara Castañeda Jun 12, 2021,05:58 RIZWAN MULLER Jun 11, 2021 13:54 BARBARA CASTAÑEDA DO Jun 12, 2021 05:58
[2021-06-11 13:56] LABS: BASOPHILS % (AUTO) 0 % (0-10); EOSINOPHILS # (AUTO) 0.1 10^3/uL (0.0-0.3); EOSINOPHILS % (AUTO) 1 % (0-10); HEMATOCRIT 34 % (35-52); HEMOGLOBIN 11.6 g/dL (11.5-16.0); LYMPHOCYTES % (AUTO) 27 % (12-44); MEAN CORPUSCULAR HEMOGLOBIN 31 pg (25-34); MEAN CORPUSCULAR HGB CONC 34 g/dL (32-36); MEAN CORPUSCULAR VOLUME 93 fL (80-99); MEAN PLATELET VOLUME 9.4 fL (9.0-12.2); MONOCYTES # (AUTO) 0.5 10^3/uL (0.0-1.0); MONOCYTES % (AUTO) 7 % (0-12); NEUTROPHILS # (AUTO) 4.8 10^3/uL (1.8-7.8); NEUTROPHILS % (AUTO) 64 % (42-75); PLATELET COUNT 238 10^3/uL (130-400); WHITE BLOOD COUNT 7.4 10^3/uL (4.3-11.0)
[2021-06-11 14:15] LABS: ALBUMIN 3.9 GM/DL (3.2-4.5); BILIRUBIN,TOTAL 1.6 MG/DL (0.1-1.0); CALCIUM 9.6 MG/DL (8.5-10.1); CREATININE SERUM 0.87 MG/DL (0.60-1.30); POTASSIUM 3.6 MMOL/L (3.6-5.0); TOTAL PROTEIN 7.3 GM/DL (6.4-8.2)
--- NOTE | 2021-06-11 14:45 | Occupational Therapy Eval ---
OT Evaluation-General/PLF Medical Diagnosis Admission Date Jun 11, 2021 at 12:03 Medical Diagnosis: lumbar laminectomy and fusion Onset Date: Jun 05, 2021 Therapy Diagnosis Therapy Diagnosis: decreased ADL status Precautions Comments Back Precaution: no bending, lifting (more than 10 lb), twisting Back brace when OOB Referral Physician: Barbara Hawley DO Referral Reason: Evaluation/Treatment Medical History Pertinent Medical History: Arthritis, DM, GERD, HTN Additional Medical History anxiety, arthritis, cancer (cervical), depression, DM, GERD, HTN, hyperlipidemia, L hip surgery Current History Pt has had chronic back pain, radiating to BLEs (affecting R>L). Pt has tried conservative tx including injections and PT, but hasn't had relief. 06/05/21 pt underwent lumbar revision surgery. She discharged home 06/06 with family support, having 3 falls by 06/07. 06/11 pt admitted to ARU for skilled therapy and medication management. Social History Home: Single Level Current Living Status: Alone Entry Into Home: Ramp Pt does have steps up into her attic area, but she doesn't go up there any more ADL-Prior Level of Function SCALE: Activities may be completed with or without assistive devices. 9-Tsdqxmoqqy-hzjsypl completes the activity by him/herself with no assistance from a helper. 5-Set-up or Clean-up Assistance-helper sets up or cleans up; patient completes activity. Elrama assists only prior to or following the activity. 4-Supervision or Touching Assistance-helper provides verbal cues and/or touchin g/steadying and/or contact guard assistance as patient completes activity. Assistance may be provided throughout the activity or intermittently. 3-Partial/Moderate Assistance-helper does LESS THAN HALF the effort. Elrama lifts, holds or supports trunk or limbs, but provides less than half the effort. 2-Substantial/Maximal Assistance-helper does MORE THAN HALF the effort. Elrama lifts or holds trunk or limbs and provides more than half the effort. 0-Uworopljv-nejinc does ALL the effort. Patient does none of the effort to complete the activity. Or, the assistance of 2 or more helpers is required for the patient to complete the activity. If activity was not attempted, code reason: 7-Patient Refused. 9-Not Applicable-not attempted and the patient did not perform the activity before the current illness, exacerbation or injury. 10-Not Attempted due to Environmental Limitations-(lack of equipment, weather restraints, etc.). 88-Not Attempted due to Medical Conditions or Safety Concerns. ADL PLOF Comments Pt reports IND with ADLs and functional mobility, using FWW as needed. Self Care: Independent Functional Cognition: Independent DME/Equipment: Bath Bench, Shower DME/Equipment Comments FWW OT Current Status Subjective Pt up in recliner, daughter and son present. Pt agreeable to OT Tx. Mental Status/Objective Patient Orientation: Person, Place, Situation Attachments: Other-See Comments (Back brace) Current Glasses/Contacts: Yes Dentures/Partials: Yes Hand Dominance: Right Upper Extremity ROM WFL, BUE shoulder flexion to approx 150 degrees. Upper Extremity Coordination WFL Upper Extremity Sensation WFL, pt has occasional numbness in UEs. Upper Extremity Strength grossly 3+/5 ADL-Treatment Eating (QC): 6 (IND with lunch) Oral Hygiene (QC): 7 Shower/Bathe Self (QC): 7 Upper Body Dressing (QC): 3 (Assistance with back brace) Lower Body Dressing (QC): 7 On/Off Footwear (QC): 2 (Pt able to doff tennis shoes, assist with doffing/donning socks and donning shoes while maintaining preautions) Toileting Hygiene (QC): 4 (SBA, pt able to manage pants and hygiene.) Other Treatments [id number] OT eval/tx: Pt in recliner, family present. Pt ate lunch as OT educated pt on rehab expectations and process. Pt and family provided information about PLOF and home set up. Pt used FWW to transfer into bathroom, completed toileting, then stood at sink to wash her hands. Pt returned to recliner. Pt attempted footwear, required max A overall in order to maintain precautions. OT educated pt on AE for footwear, able to doff socks and shoes using bookkeeping clerk. OT switched out pt's laces to elastic laces with pt's permission in order to switch shoes into a slip on shoe. Pt used sock aide to don socks, min A, and able to use LH shoe horn to don tennis shoes (with adaptive laces) with SBA. [id number]: PT/OT cotreat due to skill of 2 clinicans required which a rehabilitation liaison could not perform in order to coordinate UEs/LEs, decrease fall risk, focus on higher level balance tasks, and due to pt's limitations with pain, activity tolerance, and dynamic balance. OT focused on UEs, cues for sequencing and safety, and ADLs, PT focused on LE placement, transfers/mobility, gross overall movement, and dynamic standing balance. Pt used FWW to go into therapy gym, completing bed mobility, and balance test. Pt then stood at table, completing pipe tree, BUEs, without UE support, SBA throughout task. Pt able to complete 2 patterns, seated rest break between. Pt requests to use bathroom, used FWW to return to her room, transferring to toilet. She completed toileting, stood at sink to wash her hands. Post tx, pt standing at sink with PT, all needs met. PT present for continued tx. Education OT Patient Education: Correct positioning, Energy conservation, Modified ADL techniques, Progress toward Goal/Update tx plan, Purpose of tx/functional activities, Reviewed precautions, Rehab process, Safety issues, Transfer techniques Teaching Recipient: Patient Teaching Methods: Discussion Response to Teaching: Verbalize Understanding OT Short Term Goals Short Term Goals Time Frame: Jun 19, 2021 Shower/bathe self: 4 Upper body dressin Lower body dressin Putting on/taking off footwear: 5 OT [employer] Equipment Technician Goals [facility] Goals Time Frame: Jun 28, 2021 Eating (QC): 6 Oral Hygiene (QC): 6 Toileting Hygiene (QC): 6 Shower/Bathe Self (QC): 6 Upper Body Dressing (QC): 6 Lower Body Dressing (QC): 6 On/Off Footwear (QC): 6 1=Demonstrate adherence to instructed precautions during ADL tasks. 2=Patient will verbalize/demonstrate understanding of assistive devices/modifications for ADL. 3=Patient will improve strength/tolerance for activity to enable patient to perform ADL's. OT Education/Plan Problem List/Assessment Assessment: Decreased Activ Tolerance, Decreased UE Strength, Impaired Funct Balance, Impaired I ADL's, Impaired Self-Care Skills Discharge Recommendations Plan/Recommendations: Continue POC Treatment Plan/Plan of Care Patient would benefit from OT for education, treatment and training to promote independence in ADL's, mobility, safety and/or upper extremity function for ADL's. Plan of Care: ADL Retraining, Functional Mobility, Group Exercise/Act as Ind, UE Funct Exercise/Act Treatment Duration: Jun 28, 2021 Frequency: At least 5 of 7 days/Wk (IRF) Estimated Hrs Per Day: 1.5 hours per day Agreement: Yes Rehab Potential: Good Time/GCodes Start Time: 12:50 Stop Time: 14:20 Total Time Billed (hr/min): 90 Billed Treatment Time 1322-7367 OT eval (10'), [id number] OT tx (50'), [id number] OT/PT cotreat (30') 1, EVM (10'), ADL 3 (50'), FA 2 (30') AN ARMENDARIZ OT Jun 11, 2021 14:45
[2021-06-11] MEDS: DICLOFENAC 1% GEL 100 GM (VOLTAREN) TUBE TOP SCH ×4 (15:03→20:41)
--- NOTE | 2021-06-11 15:31 | Physical Therapy Daily Note ---
PT Daily Note-Current Subjective Patient was admitted today s/p falling secondary to loss of balance. Patient came directly from home, and states that she had a lumbar fusion, and laminectomy on June 04, 2021. Patient complains of sharp shooting pain that runs down the back of her thigh bilaterally. The pain comes on intermittently and she states that she cannot relieve it no matter what position shes in. Pain Location: Posterior Location Body Site: Thigh Pain Description: Sharp Comment: No numerical rating given. Appearance Patient in recliner post tx with nurse call, phone, tray, all needs met. Mental Status Patient Orientation: Person, Place, Time, Situation back brace Transfers SCALE: Activities may be completed with or without assistive devices. 3-Grskfnxxku-llubvhf completes the activity by him/herself with no assistance from a helper. 5-Set-up or Clean-up Assistance-helper sets up or cleans up; patient completes activity. Stanley assists only prior to or following the activity. 4-Supervision or Touching Assistance-helper provides verbal cues and/or touching/steadying and/or contact guard assistance as patient completes activity. Assistance may be provided throughout the activity or intermittently. 3-Partial/Moderate Assistance-helper does LESS THAN HALF the effort. Stanley lifts, holds or supports trunk or limbs, but provides less than half the effort. 2-Substantial/Maximal Assistance-helper does MORE THAN HALF the effort. Stanley lifts or holds trunk or limbs and provides more than half the effort. 9-Tzdmuiemt-itkyae does ALL the effort. Patient does none of the effort to complete the activity. Or, the assistance of 2 or more helpers is required for the patient to complete the activity. If activity was not attempted, code reason: 7-Patient Refused. 9-Not Applicable-not attempted and the patient did not perform the activity before the current illness, exacerbation or injury. 10-Not Attempted due to Environmental Limitations-(lack of equipment, weather restraints, etc.). 88-Not Attempted due to Medical Conditions or Safety Concerns. Roll Left & Right (QC): 6 Sit to Lying (QC): 6 Lying to Sitting/Side of Bed(Q: 6 Sit to Stand (QC): 4 Chair/Ubi-on-Jaahr Xfer(QC): 4 Weight Bearing Right Lower Extremity: Right Full Weight Bearing Left Lower Extremity: Left Full Weight Bearing back precautions, brace on when out of bed Gait Training Does the Patient Walk?: Yes Distance: 120'x3, 150'x2 Walk 10 feet (QC): 4 Walk 50 ft with 2 Turns(QC): 4 Walk 150 ft (QC): 4 Walking 10ft/uneven surface-QC: 4 Gait Persons Needed: 1 Gait Assistive Device: FWW Short step length, normal step width. Wheelchair Training Does the Pt Use a Wheelchair?: No Wheel 50 ft with 2 turns (QC): 9 Type of Wheelchair: N/A Stair Training Stair Training: Handrails/: uses walker #of Steps: 1 1 Step (curb) (QC): 4 4 Steps (QC): 88 12 Steps (QC): 88 Stairs: Pattern: Step to Balance Picking up an Object (QC): 4 (using barrel drum cutter due to back precautions) Exercises Seated Therapy Exercises: Ankle pumps, Sit to stand ([id number]), Long arc quads, Hip flexion Seated Reps: 10 Treatments Parallel Bars: Side stepping (2 loops), Side stepping on mat (2 loops), Backward walking x 2 laps. Assessment Current Status: Fair Progress Patient complained of the sharp shooting pain down the back of her thighs bilaterally throughout treatment, and was especially exacerbated doing seated exercises and prevented her from using the NuStep. Patient could tolerate ambulating long distances with a FWW and SBA, but required several sitting rest breaks throughout. During the side-stepping in parallel bars, patient demonstrated good balance without using hands on a flat hard surface, but required the use of hands for balance on the rajesh. Patient scored a 21/28 on the Tinetti balance test which labels her as a fall risk (below 24/28 is a fall risk). She was compliant with back precautions throughout treatment. Patients son was with her for the duration of treatment, and patient was left sitting in chair, with call light, tray an all needs met. PT and OT co-treated for 30 min to work on balance activities (standing balance activity with pipe fitting). PT worked on standing balance, OT worked on balance activity and UE positioning and safety. PT Short Term Goals Short Term Goals Time Frame: Jun 18, 2021 Roll Left & Right: 5 Sit to lyin Lying to sitting on side of be: 5 Sit to stand: 4 (SBA) Chair/zyz-we-cykuh transfer: 4 (SBA) Walk 10 feet: 4 (SBA) Walk 50 feet with two turns: 4 (SBA) Walk 150 feet: 4 (SBA) PT [facility] Goals [facility] Goals [facility] Goals Time Frame: Jul 02, 2021 Roll Left & Right (QC): 6 Sit to Lying (QC): 6 Lying-Sitting on Side/Bed(QC): 6 Sit to Stand (QC): 6 Chair/Uxq-aj-Sjfip Xfer(QC): 6 Toilet Transfer (QC): 6 Car Transfer (QC): 6 Does the Patient Walk: Yes Walk 10 feet (QC): 6 Walk 50ft with 2 Turns (QC): 6 Walk 150 ft (QC): 6 Walking 10ft on Uneven Surface: 6 1 Step (curb) (QC): 4 4 Steps (QC): 4 12 Steps (QC): 88 Picking up an Object (QC): 6 (using barrel drum cutter) Wheel 50 feet with 2 turns (QC: 9 Wheel 150 feet: 9 PT Plan Problem List Problem List: Activity Tolerance, Functional Strength, Safety, Balance, Gait, Transfer, ROM Treatment/Plan Treatment Plan: Continue Plan of Care Treatment Plan: Bed Mobility, Education, Functional Activity Abimael, Functional Strength, Group Therapy, Gait, Safety, Therapeutic Exercise, Transfers Treatment Duration: Jul 02, 2021 Frequency: At least 5 of 7 days/Wk (IRF) Estimated Hrs Per Day: 1.5 hours per day Patient and/or Family Agrees t: Yes Safety Risks/Education Patient Education: Gait Training, Transfer Techniques, Steps, Correct Positioning, Safety Issues Teaching Recipient: Patient, Family Teaching Methods: Demonstration, Discussion Response to Teaching: Verbalize Understanding, Return Demonstration Time/GCodes Time In: 1350 Time Out: 1520 Total Billed Treatment Time: 90 Total Billed Treatment 1 visit NM 30' EX 30' FA 30' PT and OT co-treated from 1021-3599, PT tx from 4304-0925 SAUL HERNANDEZ PT Jun 11, 2021 15:31
[2021-06-11] MEDS: VENlafaxine XR 75 MG (EFFEXOR XR) CAP PO SCH (17:23)
[2021-06-11] MEDS: GLIMEPIRIDE 4 MG (AMARYL) TAB PO SCH (17:23)
[2021-06-11] MEDS: inSUlin ASPART (NovoLOG) 1 UNIT/0.01 ML (CHARGE PER UNIT) SC SCH ×2 (17:23→20:40)
[2021-06-11] MEDS: CYCLOBENZAPRINE 10 MG (FLEXERIL) TAB PO PRN (19:56)
[2021-06-11 20:30] VITALS: BP 154/65
[2021-06-11] MEDS: DOCUSATE SODIUM 100 MG (COLACE) CAP PO SCH (20:38)
[2021-06-11] MEDS: AMITRIPTYLINE 10 MG (ELAVIL) TAB PO SCH (20:39)
[2021-06-11] MEDS: TEMAZEPAM 15 MG (RESTORIL) CAP PO SCH (20:39)
[2021-06-11] MEDS: polyethylene glycoL POWDER 17 GM (MIRALAX) PACK PO SCH (20:39)
[2021-06-11] MEDS: GABAPENTIN 100 MG (NEURONTIN) CAP PO SCH (20:39)
[2021-06-11] MEDS: SENNA W/DOCUSATE (SENOKOT S) TABLET PO SCH (20:39)
[2021-06-11] MEDS ORDERED: NON-FORMULARY MEDICATION 1 EA EA (Venlafaxine HCl (Venlafaxine HCl ER) 150 MG) PO SCH (21:00)
[2021-06-11] MEDS ORDERED: NON-FORMULARY MEDICATION 1 EA EA (Carvedilol 25 MG) PO SCH (21:00)
[2021-06-12] MEDS: HYDROcodone/APAP 7.5 MG/325 MG (LORTAB, LORCET PLUS) TABLET PO PRN ×5 (01:36→22:15)
[2021-06-12] MEDS: CYCLOBENZAPRINE 10 MG (FLEXERIL) TAB PO PRN ×3 (04:38→23:33)
--- NOTE | 2021-06-12 06:08 | Individualized Plan of Care ---
Individualized Plan of Care Rehab Nursing IPOC Order Admission Date Jun 11, 2021 at 12:03 Current Orders Orders Admission Order(Inpt,Obs,Sdc) (06/11/21 09:39) Vital Signs: Per Unit Policy ( 08,16,00 (06/11/21 09:39) Keyur Sage , (06/11/21 09:39) Sequential Compression Device (06/11/21 09:39) Director Child Development Center-Inpt Rehab Con (06/11/21 09:39) Rehab Nursing Orders-Ipoc (06/11/21 09:39) Physical Therapy Rehab Orders (06/11/21 09:39) Occupational Therapy Rehab Ord (06/11/21 09:39) Speech Therapy Rehab Orders (06/11/21 09:39) Cbc With Automated Diff (06/12/21 06:00) Comprehensive Metabolic Panel (06/12/21 06:00) Precautions (Aru) (06/11/21 09:39) Weekly Weight WEEK (06/11/21 09:39) Rehab-Intensity Of Therapy (06/11/21 09:39) Initiate Admission Nursing Pro .admission (06/11/21 09:39) Alprazolam Tablet (Xanax Tablet) (06/11/21 09:45) Calcium Carbonate Chew Tablet (Antacid C (06/11/21 09:45) Diphenhydramine Tablet (Benadryl Tablet) (06/11/21 09:45) Docusate Sodium Capsule (Colace Capsule) (06/11/21 21:00) Docusate Sodium Capsule (Colace Capsule) (06/11/21 09:45) Bisacodyl Suppository (Dulcolax Supposit (06/11/21 09:45) Lactulose Oral Solution (Enulose Oral So (06/11/21 09:45) Na Phos/Na Biphos Enema (Fleet Enema Anam (06/11/21 09:45) Guaifenesin/Codeine Syrup (Robitussin Ac (06/11/21 09:45) Loperamide Tablet (Imodium Tablet) (06/11/21 09:45) Melatonin Tablet (Melatonin Tablet) (06/11/21 09:45) Polyethylene Glycol Powder Pkt (Miralax (06/11/21 21:00) Ondansetron Oral Dissolve Tab (Zofran (06/11/21 09:45) Senna S Tablet (Senokot S Tablet) (06/11/21 21:00) Acetaminophen Tablet/Caplet (Tylenol T (06/11/21 09:45) Code/Resuscitation (06/11/21 09:39) Ambulate 08,12,20 (06/11/21 09:39) Sequential Compression Device ONCE (06/11/21 09:39) Initiate Admission Nursing Pro .admission (06/11/21 09:39) Admission Arrival Bed Request (06/11/21 12:02) Admission Arrival Bed Request (06/11/21 11:55) Cho 60g/M 0snack (16-1999 Aldo) (06/11/21 Lunch) Accucheck Achs ACHS (06/11/21 12:33) Insulin Aspart (Novolog) (Novolog (Charg (06/11/21 16:00) Alprazolam Tablet (Xanax Tablet) (06/11/21 12:45) Amitriptyline Tablet (Elavil Tablet) (06/11/21 21:00) Aripiprazole Tablet (Abilify Tablet) (06/11/21 21:00) Rx-Cyclobenzaprine Tablet (Rx-Flexeril T (06/11/21 13:00) Gabapentin Capsule/Tablet (Neurontin Cap (06/11/21 21:00) Glimepiride Tablet (Amaryl Tablet) (06/11/21 18:00) Hydrocodone/Apap 7.5/325 Tab (Lortab 7. (06/11/21 12:45) Omeprazole (Non-Formulary) (Prilosec (No (06/12/21 09:00) Temazepam Capsule (Restoril Capsule) (06/11/21 21:00) (Nf) Carvedilol (06/11/21 21:00) (Nf) Dapagliflozin Propanediol (Farxiga) (06/12/21 09:00) (Nf) Lisinopril/Hydrochlorothiazide (Lis (06/12/21 09:00) (Nf) Venlafaxine Hcl (Venlafaxine Hcl Er (06/11/21 21:00) Heating Pad (06/11/21 12:43) Diclofenac 1% Gel (Voltaren 1% Gel) (06/11/21 13:00) Cbc With Automated Diff (06/11/21 12:43) Comprehensive Metabolic Panel (06/11/21 12:43) Hemoglobin A1c (06/11/21 12:43) Carvedilol Tablet (Coreg Tablet) (06/11/21 21:00) Pantoprazole Tablet (Protonix Tablet) (06/12/21 09:00) Venlafaxine Xr Capsule (Effexor Xr Capsu (06/11/21 18:00) Lisinopril Tablet (Zestril Tablet) (06/12/21 09:00) Hydrochlorothiazide Cap/Tablet (Hctz Cap (06/12/21 09:00) Cyclobenzaprine Tablet (Flexeril Tablet) (06/11/21 13:00) Empagliflozin Tablet (Jardiance Tablet) (06/12/21 09:00) Dressing Order (Intervention) DAILY (06/12/21 10:00) Patient Visit (06/11/21 ) Pt Eval Moderate Complexity (06/11/21 ) Ex Neuromuscular, Ea 15 Min (06/11/21 ) Exercise Therap, Ea 15 Min (06/11/21 ) Functional Activities, Ea 15 (06/11/21 ) Consult Wound Care Physician (06/12/21 10:35) Oxycodone Immediate Rel Tablet (Oxyir Ta (06/12/21 11:00) Oxycodone Immediate Rel Tablet (Oxyir Ta (06/12/21 11:00) Potassium Chloride (Tablet) (Klor Con Ta (06/12/21 11:00) Patient Visit (06/12/21 ) Speech Sound Lang Comp (06/12/21 ) Treat. Speech/Lang/Voice (06/12/21 ) Glucerna (06/12/21 14:00) Patient Visit (06/12/21 ) Functional Activities, Ea 15 (06/12/21 ) Exercise Therap, Ea 15 Min (06/12/21 ) Gait Training, Ea 15 Min (06/12/21 ) Dressing Order (Intervention) DAILY (06/12/21 16:31) Post-Op Shoe (06/12/21 16:31) Nursing Communication (Order) DAILY (06/12/21 16:31) Rehab Nursing Orders: Ongoing Assess. of Cognitive Status, Ongoing Assess. of Function Status, Bladder Management, Bladder Scan, Bladder Training, Bowel Management, Bowel Training, Disease Management & Educaiton, DVT Prophylaxis, Fall Prevention, Fluid/Electrolyte/Nutrition Mgmt, Infection Prevention, Medication Management & Education, Management of Risks & Complications, Management of Skin Intergrity, Nutrition Management, Pain Management, Wound Management Intensity of Therapy to be met Patient to be seen: Min.3h per day/5 of 7d PT IPOC Problem List: Activity Tolerance, Functional Strength, Safety, Balance, Gait, Transfer, ROM Treatment Plan: Continue Plan of Care Bed Mobility, Education, Functional Activity Abimael, Functional Strength, Group Therapy, Gait, Safety, Therapeutic Exercise, Transfers Treatment Duration: Jul 02, 2021 Frequency: At least 5 of 7 days/Wk (IRF) Estimated Hrs Per Day: 1.5 hours per day OT IPOC Problems: Decreased Activ Tolerance, Decreased UE Strength, Impaired Funct Balance, Impaired I ADL's, Impaired Self-Care Skills OT Treatment, Training and Edu: Yes Plan of Care: ADL Retraining, Functional Mobility, Group Exercise/Act as Ind, UE Funct Exercise/Act Treatment Duration: Jun 28, 2021 Frequency: At least 5 of 7 days/Wk (IRF) Estimated Hrs Per Day: 1.[address] IPOC Speech Therapy Treatment Plan: Discontinue ST Treatment Duration: Jun 12, 2021 Frequency: Modified Program (IRF) Estimated Hrs Per Day: Other Director Child Development Center/Case Mgmt Director Child Development Center/Case Managemen: Discharge Planning Dietitian/Sawmill Worker Dietitian/Sawmill Worker to monitor nutritional status and make changes and/or recommendations as needed and work with speech pathology on dietary upgrades as the occur. Physician IPOC Medical Issues being managed closely and that require the 24 hour availability of a physician: Recent complicated lumbar spine surgery with multiple falls and severe pain with sleep deprivation high sugars with left foot diabetic ulcer will require close monitoring for any decompensation Medical Issues: Bowel/Bladder Function, DVT Prophylaxis, Falls Precautions, Fluid/Electrolyte/Nutrition Balance, Infection Protection, Pain Management, Wound Care Brief Synthesis of Preadmission Screen, Post-Admission Evaluation, and Therapy Evaluations: PT and OT will focus on regaining function with ADL activities with use of assistive devices in order to regain enough function to return back to independent living and living alone Medical Prognosis: Good Anticipated Length of Stay: 7 days CRIS CASTAÑEDA DO Jun 12, 2021 06:08
--- NOTE | 2021-06-12 06:08 | PM&R Progress Note ---
Subjective HPI/CC On Admission Date Seen by Provider: Jun 12, 2021 Time Seen by Provider: 09:00 Subjective/Events-last exam 06/12/2021: Patient settling in well Pain is mostly in the nighttime so we will put in oxycodone 5 mg at 2100 and 0500 as needed Bowels are moving Feels like she is moving around pretty well Checked meds and labs Diabetic foot ulcer on the left foot will need wound care evaluation Eating and drinking pretty well Review of Systems General: Fatigue, Malaise Musculoskeletal: back pain Objective Exam Vital Signs Vital Signs Date Time Temp Pulse Resp B/P (MAP) Pulse Ox O2 Delivery O2 Flow Rate FiO2 06/12/21 20:10 Room Air 06/12/21 20:00 36.2 93 20 125/59 (81) 94 Capillary Refill : General Appearance: No Apparent Distress, WD/WN, Chronically ill, Obese HEENT: PERRL/EOMI, Normal ENT Inspection, Pharynx Normal Neck: Full Range of Motion, Normal Inspection, Non Tender, Supple, Carotid Brui t Respiratory: Chest Non Tender, Lungs Clear, Normal Breath Sounds, No Accessory Muscle Use, No Respiratory Distress Cardiovascular: Regular Rate, Rhythm, No Edema, No Gallop, No JVD, No Murmur, Normal Peripheral Pulses Gastrointestinal: Normal Bowel Sounds, No Organomegaly, No Pulsatile Mass, Non Tender, Soft Back: Normal Inspection, Decreased Range of Motion, Muscle Spasm, Vertebral Tenderness Extremity: Normal Capillary Refill, Normal Inspection, Normal Range of Motion, Non Tender, No Calf Tenderness, No Pedal Edema Neurologic/Psychiatric: Alert, Oriented x3, No Motor/Sensory Deficits, residential sales II- XII Norm as Tested, Depressed Affect Skin: Normal Color, Warm/Dry Lymphatic: No Adenopathy Results/Procedures Lab Laboratory Tests 06/12/21 06:20 Patient resulted labs reviewed. FIM Transfers Therapy Code Descriptions/Definitions Functional Trinity Measure: 0=Not Assessed/NA 4=Minimal Assistance 1=Total Assistance 5=Supervision or Setup 2=Maximal Assistance 6=Modified Trinity 3=Moderate Assistance 7=Complete IndependenceSCALE: Activities may be completed with or without assistive devices. 2-Relikonvel-qossmro completes the activity by him/herself with no assistance from a helper. 5-Set-up or Clean-up Assistance-helper sets up or cleans up; patient completes activity. [place] assists only prior to or following the activity. 4-Supervision or Touching Assistance-helper provides verbal cues and/or touching/steadying and/or contact guard assistance as patient completes activity. Assistance may be provided throughout the activity or intermittently. 3-Partial/Moderate Assistance-helper does LESS THAN HALF the effort. Artie lifts, holds or supports trunk or limbs, but provides less than half the effort. 2-Substantial/Maximal Assistance-helper does MORE THAN HALF the effort. [place] lifts or holds trunk or limbs and provides more than half the effort. 2-Jahcinfmc-usqoph does ALL the effort. Patient does none of the effort to c omplete the activity. Or, the assistance of 2 or more helpers is required for the patient to complete the activity. If activity was not attempted, code reason: 7-Patient Refused. 9-Not Applicable-not attempted and the patient did not perform the activity before the current illness, exacerbation or injury. 10-Not Attempted due to Environmental Limitations-(lack of equipment, weather restraints, etc.). 88-Not Attempted due to Medical Conditions or Safety Concerns. Roll Left to Right (QC): 6 Sit to Lying (QC): 6 Sit to Stand (QC): 4 Chair/Sne-dn-Idngl Xfer(QC): 4 Car Transfer (QC): 4 Gait Training Does the Patient Walk?: Yes Distance: 120'x3, 150'x2 Walk 10 feet (QC): 4 Walk 50 ft with 2 Turns(QC): 4 Walk 150 ft (QC): 4 Walking 10ft/uneven surface-QC: 4 Gait Persons Needed: 1 Gait Assistive Device: FWW Wheelchair Training Does the Pt Use a Wheelchair?: No Wheel 50 ft with 2 turns (QC): 9 Wheel 150 ft (QC): 9 Type of Wheelchair: N/A Stair Training Stair Training: Handrails/: uses walker #of Steps: 1 1 Step (curb) (QC): 4 4 Steps (QC): 88 12 Steps (QC): 88 Stairs: Pattern: Step to Balance Picking up an Object (QC): 4 (using musical string maker due to back precautions) ADL-Treatment Eating (QC): 6 (IND with lunch) Oral Hygiene (QC): 7 Shower/Bathe Self (QC): 7 Upper Body Dressing (QC): 3 (Assistance with back brace) Lower Body Dressing (QC): 7 On/Off Footwear (QC): 2 (Pt able to doff tennis shoes, assist with doffing/donning socks and donning shoes while maintaining preautions) Toileting Hygiene (QC): 4 (SBA, pt able to manage pants and hygiene.) Assessment/Plan Assessment and Plan Assess & Plan/Chief Complaint Assessment: s/p L3-4 LLIF/laminectomy/MIS PSIF on 06/05/[address] Walsh uncomplicated Multiple falls following discharge from [facility] Disruptive sleep cycle postoperatively Chronic Mechanical Lower Back Pain Lumbar spondylosis (most severe at L1-2) HTN GERD Diabetes Mellitus HLD Depression GERD Anxiety Left diabetic foot ulcer Plan: Aggressive rehab Blood sugar management Home meds Supportive care 06/12/2021: Diabetic foot ulcer management Oxycodone at night Maintain bowel regimen (1) Lumbar stenosis (2) Diabetes (3) Hypertension RCIS CASTAÑEDA DO Jun 12, 2021 06:08
[2021-06-12] MEDS: inSUlin ASPART (NovoLOG) 1 UNIT/0.01 ML (CHARGE PER UNIT) SC SCH ×4 (06:22→20:47)
[2021-06-12 06:34] LABS: BASOPHILS % (AUTO) 0 % (0-10); EOSINOPHILS # (AUTO) 0.1 10^3/uL (0.0-0.3); EOSINOPHILS % (AUTO) 2 % (0-10); HEMATOCRIT 32 % (35-52); HEMOGLOBIN 10.8 g/dL (11.5-16.0); LYMPHOCYTES # (AUTO) 1.8 10^3/uL (1.0-4.0); LYMPHOCYTES % (AUTO) 33 % (12-44); MEAN CORPUSCULAR HEMOGLOBIN 31 pg (25-34); MEAN CORPUSCULAR HGB CONC 34 g/dL (32-36); MEAN CORPUSCULAR VOLUME 92 fL (80-99); MEAN PLATELET VOLUME 9.4 fL (9.0-12.2); MONOCYTES # (AUTO) 0.5 10^3/uL (0.0-1.0); MONOCYTES % (AUTO) 8 % (0-12); NEUTROPHILS % (AUTO) 55 % (42-75); PLATELET COUNT 178 10^3/uL (130-400); WHITE BLOOD COUNT 5.4 10^3/uL (4.3-11.0)
[2021-06-12 06:41] LABS: ALBUMIN 3.6 GM/DL (3.2-4.5); POTASSIUM 3.3 MMOL/L (3.6-5.0)
[2021-06-12 06:43] LABS: CALCIUM 9.2 MG/DL (8.5-10.1)
[2021-06-12 06:44] LABS: TOTAL PROTEIN 6.7 GM/DL (6.4-8.2)
[2021-06-12 06:46] LABS: BILIRUBIN,TOTAL 1.7 MG/DL (0.1-1.0)
[2021-06-12 06:47] LABS: CREATININE SERUM 0.74 MG/DL (0.60-1.30)
[2021-06-12 07:40] VITALS: BP 116/55
[2021-06-12] MEDS: DOCUSATE SODIUM 100 MG (COLACE) CAP PO SCH ×2 (07:55→19:34)
[2021-06-12] MEDS: polyethylene glycoL POWDER 17 GM (MIRALAX) PACK PO SCH ×2 (07:56→19:36)
[2021-06-12] MEDS: SENNA W/DOCUSATE (SENOKOT S) TABLET PO SCH ×2 (07:56→19:36)
[2021-06-12] MEDS: lisINopril 20 MG (PRINIVIL) TABLET PO SCH (08:19)
[2021-06-12] MEDS: EMPAGLIFLOZIN 10 MG TABLET (JARDIANCE) PO SCH (08:19)
[2021-06-12] MEDS: PANTOPRAZOLE 20 MG TABLET (PROTONIX) PO SCH (08:19)
[2021-06-12] MEDS: GLIMEPIRIDE 4 MG (AMARYL) TAB PO SCH ×2 (08:19→17:43)
[2021-06-12] MEDS: DICLOFENAC 1% GEL 100 GM (VOLTAREN) TUBE TOP SCH ×4 (08:20→20:42)
--- NOTE | 2021-06-12 08:38 | Occupational Ther Daily Note ---
OT Current Status-Daily Note Subjective Pt up in recliner, agreeable to OT Tx. Pt reports 10/10 this morning before pain medication, 8/10 during session after medication. Mental Status/Objective Patient Orientation: Person, Place, Time, Situation Attachments: Other-See Comments (Back Brace) ADL-Treatment Therapy Code Descriptions/Definitions Functional Staples Measure: 0=Not Assessed/NA 4=Minimal Assistance 1=Total Assistance 5=Supervision or Setup 2=Maximal Assistance 6=Modified Staples 3=Moderate Assistance 7=Complete IndependenceSCALE: Activities may be completed with or without assistive devices. 7-Axssmqwyke-nnccnlu completes the activity by him/herself with no assistance from a helper. 5-Set-up or Clean-up Assistance-helper sets up or cleans up; patient completes activity. [place] assists only prior to or following the activity. 4-Supervision or Touching Assistance-helper provides verbal cues and/or touching/steadying and/or contact guard assistance as patient completes activity. Assistance may be provided throughout the activity or intermittently. 3-Partial/Moderate Assistance-helper does LESS THAN HALF the effort. [place] lifts, holds or supports trunk or limbs, but provides less than half the effort. 2-Substantial/Maximal Assistance-helper does MORE THAN HALF the effort. [place] lifts or holds trunk or limbs and provides more than half the effort. 1-Lcyaupphd-gzvusg does ALL the effort. Patient does none of the effort to complete the activity. Or, the assistance of 2 or more helpers is required for the patient to complete the activity. If activity was not attempted, code reason: 7-Patient Refused. 9-Not Applicable-not attempted and the patient did not perform the activity before the current illness, exacerbation or injury. 10-Not Attempted due to Environmental Limitations-(lack of equipment, weather restraints, etc.). 88-Not Attempted due to Medical Conditions or Safety Concerns. Eating (QC): 6 (IND with breakfast. ) Oral Hygiene (QC): 4 (Supervision standing at sink.) Shower/Bathe Self (QC): 3 (Min A with washing LB.) Upper Body Dressing (QC): 3 (Min A with shirt/back brace.) Lower Body Dressing (QC): 2 (Max A with threading LEs, pt able to manage pant hike) On/Off Footwear: 3 (Mod A with donning gripper socks.) Toileting Hygiene (QC): 4 (supervision) Toilet Transfer (QC): 4 (supervisoin) Other Treatment Pt up in recliner, agreeable to OT Tx. Pt used FWW to perform functional mobility to bathroom, she completed toileting, showering, dressing and oral care as outlined above. Pt required min cues throughout ADLs in order to maintain back precautions. OT educated pt on AE for LE dressing, pt able to perform LBD with min A with AE. Pt sat at recliner, took medications provided by nurse, then used FWW to go to therapy gym, [facility]. In order to increase BUE strength and activity tolerance, pt placed/removed 1" pegs from foam pegboard, alternating hands, 1lb wrist weight BUEs. Pt then removed beads from heavy resistance theraputty, able to locate all but 2 beads. 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 Pt used FWW to return to her room, SBA. Post tx, pt in recliner, call light in re ach and all needs met, chair alarm on. Education OT Patient Education: Correct positioning, Energy conservation, Modified ADL techniques, Progress toward Goal/Update tx plan, Purpose of tx/functional activities, Rehab process Teaching Recipient: Patient Teaching Methods: Discussion OT Short Term Goals Short Term Goals Time Frame: Jun 19, 2021 Shower/bathe self: 4 Upper body dressin Lower body dressin Putting on/taking off footwear: 5 OT Oven Stripper Goals Oven Stripper Goals Time Frame: Jun 28, 2021 Eating (QC): 6 Oral Hygiene (QC): 6 Toileting Hygiene (QC): 6 Shower/Bathe Self (QC): 6 Upper Body Dressing (QC): 6 Lower Body Dressing (QC): 6 On/Off Footwear (QC): 6 1=Demonstrate adherence to instructed precautions during ADL tasks. 2=Patient will verbalize/demonstrate understanding of assistive devices/modifications for ADL. 3=Patient will improve strength/tolerance for activity to enable patient to perform ADL's. OT Education/Plan Problem List/Assessment Assessment: Decreased Activ Tolerance, Decreased UE Strength, Impaired Funct Balance, Impaired I ADL's, Impaired Self-Care Skills Discharge Recommendations Plan/Recommendations: Continue POC Equpiment Recommendations-D/C: House Worker General, Sock Aide Treatment Plan/Plan of Care Patient would benefit from OT for education, treatment and training to promote independence in ADL's, mobility, safety and/or upper extremity function for ADL's. Plan of Care: ADL Retraining, Functional Mobility, Group Exercise/Act as Ind, UE Funct Exercise/Act Treatment Duration: Jun 28, 2021 Frequency: At least 5 of 7 days/Wk (IRF) Estimated Hrs Per Day: 1.5 hours per day Agreement: Yes Rehab Potential: Good Time/GCodes Start Time: 07:45 Stop Time: 09:00 Total Time Billed (hr/min): 75 Billed Treatment Time 1, ADL 3 (45'), FA 2 (30') AN ARMENDARIZ OT Jun 12, 2021 08:38
[2021-06-12] MEDS ORDERED: NON-FORMULARY MEDICATION 1 EA EA (Dapagliflozin Propanediol (Farxiga) 10 MG) PO SCH (09:00)
[2021-06-12] MEDS ORDERED: OMEPRAZOLE 20 MG (PriLOSEC) CAP NON-FORMULARY PO SCH (09:00)
--- NOTE | 2021-06-12 09:59 | Physical Therapy Daily Note ---
PT Daily Note-Current Subjective Pt. agrees to Rx. States she has pain in her legs at 6/10 on and off during Rx. Pt. shares the home situation. Pain Numeric Pain Scale: 5-Moderate Pain Location: Lower Location Body Site: Calf (let and right) Pain Description: Ache Mental Status Patient Orientation: Person, Place, Normal For Age Attachments: Other-See Comments (Breg back brace) Transfers SCALE: Activities may be completed with or without assistive devices. 9-Ufntzpdszv-cauwuus completes the activity by him/herself with no assistance from a helper. 5-Set-up or Clean-up Assistance-helper sets up or cleans up; patient completes activity. [place] assists only prior to or following the activity. 4-Supervision or Touching Assistance-helper provides verbal cues and/or t ouching/steadying and/or contact guard assistance as patient completes activity. Assistance may be provided throughout the activity or intermittently. 3-Partial/Moderate Assistance-helper does LESS THAN HALF the effort. [place] lifts, holds or supports trunk or limbs, but provides less than half the effort. 2-Substantial/Maximal Assistance-helper does MORE THAN HALF the effort. [place] lifts or holds trunk or limbs and provides more than half the effort. 8-Oqzhbtmhk-zfjkbm does ALL the effort. Patient does none of the effort to complete the activity. Or, the assistance of 2 or more helpers is required for the patient to complete the activity. If activity was not attempted, code reason: 7-Patient Refused. 9-Not Applicable-not attempted and the patient did not perform the activity before the current illness, exacerbation or injury. 10-Not Attempted due to Environmental Limitations-(lack of equipment, weather restraints, etc.). 88-Not Attempted due to Medical Conditions or Safety Concerns. Roll Left & Right (QC): 6 Sit to Lying (QC): 6 Lying to Sitting/Side of Bed(Q: 6 Sit to Stand (QC): 6 Chair/Dhw-ud-Iapuy Xfer(QC): 6 log roll instruction on high low table, pt. performed this well Weight Bearing Right Lower Extremity: Right Full Weight Bearing Left Lower Extremity: Left Full Weight Bearing back precautions, brace on when out of bed Gait Training Does the Patient Walk?: Yes Walk 10 feet (QC): 6 Walk 50 ft with 2 Turns(QC): 6 Walk 150 ft (QC): 6 Gait Persons Needed: 1 Gait Assistive Device: FWW Exercises Supine Ex: Ankle pumps, Quad Set, Rolling, Glut sets, Heel Slides, Short Arc Quads, Scooting, Hip abd/add Supine Reps: 15 Seated Therapy Exercises: Ankle pumps, Sit to stand, Long arc quads, Hip flexion, Hip abd/add Seated Reps: 15 Treatments as well as above pt.was educated in donning and doffing back brace with Assessment Current Status: Good Progress pt. improving with decreased c/o pain and increased mobility PT Short Term Goals Short Term Goals Time Frame: Jun 18, 2021 Roll Left & Right: 5 Sit to lyin Lying to sitting on side of be: 5 Sit to stand: 4 (SBA) Chair/kgq-ku-bpgsd transfer: 4 (SBA) Walk 10 feet: 4 (SBA) Walk 50 feet with two turns: 4 (SBA) Walk 150 feet: 4 (SBA) PT Seafood Clerk Goals Skilled Nursing Goals PT Seafood Clerk Goals Time Frame: Jul 02, 2021 Roll Left & Right (QC): 6 Sit to Lying (QC): 6 Lying-Sitting on Side/Bed(QC): 6 Sit to Stand (QC): 6 Chair/Acj-rl-Lyeju Xfer(QC): 6 Toilet Transfer (QC): 6 Car Transfer (QC): 6 Does the Patient Walk: Yes Walk 10 feet (QC): 6 Walk 50ft with 2 Turns (QC): 6 Walk 150 ft (QC): 6 Walking 10ft on Uneven Surface: 6 1 Step (curb) (QC): 4 4 Steps (QC): 4 12 Steps (QC): 88 Picking up an Object (QC): 6 (using gas welder apprentice) Wheel 50 feet with 2 turns (QC: 9 Wheel 150 feet: 9 PT Plan Treatment/Plan Treatment Plan: Continue Plan of Care Treatment Plan: Bed Mobility, Education, Functional Activity Abimael, Functional Strength, Group Therapy, Gait, Safety, Therapeutic Exercise, Transfers Treatment Duration: Jul 02, 2021 Frequency: At least 5 of 7 days/Wk (IRF) Estimated Hrs Per Day: 1.5 hours per day Patient and/or Family Agrees t: Yes Safety Risks/Education Patient Education: Gait Training, Transfer Techniques, Correct Positioning, Reviewed Don/Doff Brace, Safety Issues Teaching Recipient: Patient Teaching Methods: Demonstration, Discussion Response to Teaching: Verbalize Understanding, Return Demonstration, Reinforcement Needed Time/GCodes Time In: 900 Time Out: 1000 Total Billed Treatment Time: 60 Total Billed Treatment 1,GT15m,EX25m,FA20m JESSICA JOHN ENDOCRINOLOGY TEACHER Jun 12, 2021 09:59
--- NOTE | 2021-06-12 12:01 | Wound Care Assessment ---
Wound Care Assessment Date Seen by Provider: Jun 12, 2021 Time Seen by Provider: 11:20 Chief Complaint Wound between first and second digits on the left foot RAMONA Angelo is a 76 year old female who presents with a wound between her first and second digit on the left foot. She states there is pain associated with the wound that feels like a razor blade is cutting through the area. She rates this pain as a 5/10 on the pain scale. She noticed the wound approximately one month ago. She has had wounds associated with her feet in the past but none that are as advanced as the current wound. She is unsure what caused the wound. She has noticed some drainage and bleeding from the wound. Her daughter encouraged her to see wound care in [place], [place]. One week ago she saw Dr. Tejeda, who manages wound care in [place], who cleaned the wound and dressed it with silver alginate as a primary dressing and gauze as a secondary. Her follow-up appointment was supposed to be today. She is currently being treated in inpatient rehab s/p recent back surgery. She has a past medical history significant for non-insulin dependent DM with a most recent A1c of 7.7. FSBS 170-240's while inpatient and insulin has been implemented. 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 ROS is positive for weakness of bilateral legs and knees and negative for h/o radiation, autoimmune processes, fever, aches, or chills. 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 Review of Systems General: No Chills, No Malaise HEENT: No Head Aches, No Visual Changes Pulmonary: Dyspnea (Intermittent); No Cough Cardiovascular: No: Chest Pain, Palpitations Gastrointestinal: No: Nausea, Vomiting, Abdominal Pain, Diarrhea, Constipation Genitourinary: Frequency, Incontinence Musculoskeletal: back pain (due to recent back surgery), foot pain (left foot pain related to wound) Neurological: Weakness (weakness of bilateral knees and legs); No: Numbness Exam Vital Signs Date Time Temp Pulse Resp B/P (MAP) Pulse Ox O2 Delivery O2 Flow Rate FiO2 06/12/21 09:00 96 Room Air 06/12/21 07:40 36.1 88 18 116/55 (75) Capillary Refill : General Appearance: WD/WN, no apparent distress, obese HEENT: No scleral icterus (R), No scleral icterus (L) Cardiovascular: regular rate, rhythm, no murmur Respiratory: lungs clear, normal breath sounds, no respiratory distress, no accessory muscle use Extremities: normal range of motion, non-tender, normal inspection, no pedal edema, pedal edema (trace bilaterally) Neurologic/Psychiatric: alert, normal mood/affect, oriented x 3, motor weakness (3/5 bilaterally with extension at the knees and dorsiflexion of the feet. 4/5 plantar flexion bilaterally. 5/5 bilaterally with flexion at knees. ); No sensory deficit (L4-S1 sensation intact bilaterally) Skin: normal color, warm/dry Skin Problem Location: lower extremities (left foot) Skin Character: lesion Campbell Grade 1 diabetic ulcer present at the base of the first and second digits on the L foot between the two digits. Ulcer measures 3 x 1.1 x 0.1 cm. There is no tunneling or undermining. Drainage is moderate in amount and serosanguineous, there is no odor. Margin displays maceration and epibole. Granulation tissue is small. Necrotic tissue is large and slough. Epithelialization is small. Deepest exposed structure appears to be fat. A silver alginate primary dressing and gauze secondary dressing were on the ulcer prior and post examination. There is also a callus present on the plantar surface of the left foot near the head of the first metatarsal. It is dry and intact with some yellow and purple coloration. Results Laboratory Tests 06/11/21 13:45: White Blood Count 7.4, Red Blood Count 3.72L, Hemoglobin 11.6, Hematocrit 34L, Mean Corpuscular Volume 93, Mean Corpuscular Hemoglobin 31, Mean Corpuscular Hemoglobin Concent 34, Red Cell Distribution Width 14.6H, Platelet Count 238, Mean Platelet Volume 9.4, Immature Granulocyte % (Auto) 1, Neutrophils (%) (Auto) 64, Lymphocytes (%) (Auto) 27, Monocytes (%) (Auto) 7, Eosinophils (%) (Auto) 1, Basophils (%) (Auto) 0, Neutrophils # (Auto) 4.8, Lymphocytes # (Auto) 2.0, Monocytes # (Auto) 0.5, Eosinophils # (Auto) 0.1, Basophils # (Auto) 0.0, Immature Granulocyte # (Auto) 0.0, Sodium Level 135, Potassium Level 3.6, Chloride Level 95L, Carbon Dioxide Level 27, Anion Gap 13, Blood Urea Nitrogen 18, Creatinine 0.87, Estimat Glomerular Filtration Rate 68, BUN/Creatinine Ratio 21, Glucose Level 267H, Mean Blood Glucose 174H, Hemoglobin A1c 7.7H, Calcium Level 9.6, Corrected Calcium 9.7, Total Bilirubin 1.6H, Aspartate Amino Transf (AST/SGOT) 22, Alanine Aminotransferase (ALT/SGPT) 22, Alkaline Phosphatase 69, Total Protein 7.3, Albumin 3.9 06/11/21 15:13: Glucometer 254H 06/11/21 20:27: Glucometer 204H 06/12/21 05:44: Glucometer 176H 06/12/21 06:20: White Blood Count 5.4, Red Blood Count 3.51L, Hemoglobin 10.8L, Hematocrit 32L, Mean Corpuscular Volume 92, Mean Corpuscular Hemoglobin 31, Mean Corpuscular Hemoglobin Concent 34, Red Cell Distribution Width 14.6H, Platelet Count 178, Mean Platelet Volume 9.4, Immature Granulocyte % (Auto) 1, Neutrophils (%) (Auto) 55, Lymphocytes (%) (Auto) 33, Monocytes (%) (Auto) 8, Eosinophils (%) (Auto) 2, Basophils (%) (Auto) 0, Neutrophils # (Auto) 3.0, Lymphocytes # (Auto) 1.8, Monocytes # (Auto) 0.5, Eosinophils # (Auto) 0.1, Basophils # (Auto) 0.0, Immature Granulocyte # (Auto) 0.0, Sodium Level 136, Potassium Level 3.3L, Chloride Level 97L, Carbon Dioxide Level 23, Anion Gap 16H, Blood Urea Nitrogen 20H, Creatinine 0.74, Estimat Glomerular Filtration Rate 83, BUN/Creatinine Ratio 27, Glucose Level 178H, Calcium Level 9.2, Corrected Calcium 9.5, Total Bilirubin 1.7H, Aspartate Amino Transf (AST/SGOT) 22, Alanine Aminotransferase (ALT/SGPT) 23, Alkaline Phosphatase 73, Total Protein 6.7, Albumin 3.6 06/12/21 11:36: Glucometer 241H Assessment/Plan/Dx Assessment: 1. Campbell Grade 1 diabetic ulcer. Primary etiology diabetic, secondary moisture. 2. DM2-poor control 3. S/p L3-4 LLIF/laminectomy/MIS PSIF on 06/05/21 4. DVT prophylaxis with Lovenox Plan: 1. Continue silver alginate as primary dressing and gauze as secondary with daily dressing changes and cleansing. Offloading with surgical shoe and elevation during rest. Monitor for changes. Arrange for follow-up with wound care provider in [place], [place] upon discharge. 2. Appreciate primary care for maintenance of DM and lowering of blood glucose levels. 3. Appreciate primary care . Supervisory-Addendum Brief Verification & Attestation Participated in pt care: history, MDM, physical Personally performed: exam, history, MDM, supervision of care Care discussed with: Medical Student Procedures: n/a Results interpretation: Verified all documentation MD CAMILA Chowdhury MIKAELA Jun 12, 2021 12:01 JANICE DE PAZ MD Jun 12, 2021 16:43
[2021-06-12] MEDS: KCL 10 MEQ TAB (MICRO K) PO SCH (12:30)
--- NOTE | 2021-06-12 12:33 | ST Cognitive Linguistic Eval ---
Speech Evaluation-General Medical Diagnosis lumbar laminectomy and fusion Onset Date: Jun 05, 2021 Therapy Diagnosis Therapy Diagnosis: Intact Cognitive Linguistic Skills Precautions Precautions: Fall Precautions/Isolations: Fall Prevention, Standard Precautions Referral Referring Physician: Dr. Barbara Hawley Reason for Referral: Evaluation/Treatment Medical History Pertinent Medical History: Arthritis, DM, GERD, HTN Current History The patient is a 76 year-old female with a past medical history of anxiety, arthritis, cervical cancer, depression, DM, GERD, HTN, and HLD, who presented to the acute rehabilitation unit following a lumbar interbody fusion, lateral direct L3-4 DLIF and posterior laminectomy. Reviewed History: Yes Social History Current Living Status: Alone Speech PLF-Current Status Prior Level of Function The patient denied recent, novel challenges to her speech, language, cognition or swallowing. The patient drinks thin liquid via straw throughout the evaluation and s/s of suspected aspiration were not demonstrated. Subjective The patient was seated upright in her recliner, awake and alert upon entrance to her room by the clinician. The patient greeted the clinician appropriately and was agreeable to participation in the cognitive linguistic evaluation. Language Eval: Auditory Comprehends Simple Yes/No Ques: Functional Indent/Objects Multiple [place]: Functional Ident/Pics in Multiple [place]: Functional Follows 1-Step Commands: Functional Follows Complex Directions: Functional Follows General Conversations: Functional Language Eval: Verbal Language Completes Spontaneous Greeting: Functional Produces Auto, Serial Info: Functional Imitates Simple Words/Phrases: Functional Word Finding: Mild Requests Basic Needs: Functional States Basic Personal Info: Functional Expresses Complex Ideas: Functional Language Evaluation: Reading Follows Simple Written Direct: Functional Language Evaluation: Writing Writes to Simple Dictation: Functional Cognitive Patient Orientation The patient was oriented to self, location, month, day of week, date, and year. Objective Cognitive Domain Attention: WNL Memory: Mild Problem Solving: Functional Executive Functions: WNL Visuospatial Skills: WNL Composite Severity Rating: WNL Clock Drawing Severity Rating: [facility] Objective Formal/Standardized Tests [facility] Mental Status ([facility]) Results The patient demonstrated a result of +28/30 on the SLUMS correlating to a cognitive linguistic rating of "normal neurocognitive skills." Oral Motor/Speech Production Dysarthria or apraxia of speech were not demonstrated throughout the evaluation. The patient remained 100% intelligible in known and unknown contexts. Impression The patient demonstrated cognitive linguistic skills within normal limits. The patient displayed two errors by providing 10 animals within a one minute time frame (WNL=15) and recalling four of five single words following a five minute delay. Speech Patient Assess Expression of Ideas/Wants: Expression (4) Understanding Verbal Content: Understands (4) Brief Interview-Mental Status: Yes Repetition of Three Words: Three (3) Temporal Orientation: Year: Correct (3) Temporal Orientation: Month: Accurate within 5 days(2) Temporal Orientation: Day: Correct (1) Recall : Wear to say "Sock": Yes, no cue required (2) Recall : Color: Yes, no cue required (2) Recall : Bed: Yes,after cueing (1) Memory/Recall Ability: Current season, Location of own room, That he or she is in a hsp/hsp unit Speech-Plan Treatment Plan Speech Therapy Treatment Plan: Discontinue ST Treatment Duration: Jun 12, 2021 Frequency: 1 time per week Estimated Hrs Per Day: .5 hour per day Rehab Potential: Good Pt/Family Agrees to Plan: Yes Safety Risks/Education Teaching Recipient: Patient Teaching Methods: Discussion Response to Teaching: Verbalize Understanding Education Topics Provided: Results of OLIVIA, Plan of Care Time Speech Therapy Time In: 10:30 Speech Therapy Time Out: 11:00 Total Billed Time: 30 Billed Treatment Time 1, DAVIAN CAVANAUGH ELIZABETH ST Jun 12, 2021 12:33
--- NOTE | 2021-06-12 13:10 | Physical Therapy Daily Note ---
PT Daily Note-Current Subjective Pt. agrees to Rx but states she is in 10/10 pain in her low back and down her right leg into her knee. Pt. states she just had pain meds. Pt. requested to go to bathroom at end of Rx. Pain Numeric Pain Scale: 10-Worst Possible Pain Location: Right (and left) Location Body Site: Thigh Pain Description: Radiating Mental Status Patient Orientation: Normal For Age Attachments: Other-See Comments (BREG back brace) Transfers SCALE: Activities may be completed with or without assistive devices. 7-Ycatwosvcp-mrkjuxn completes the activity by him/herself with no assistance from a helper. 5-Set-up or Clean-up Assistance-helper sets up or cleans up; patient completes activity. [place] assists only prior to or following the activity. 4-Supervision or Touching Assistance-helper provides verbal cues and/or touching/steadying and/or contact guard assistance as patient completes activity. Assistance may be provided throughout the activity or intermittently. 3-Partial/Moderate Assistance-helper does LESS THAN HALF the effort. [place] lifts, holds or supports trunk or limbs, but provides less than half the effort. 2-Substantial/Maximal Assistance-helper does MORE THAN HALF the effort. [place] lifts or holds trunk or limbs and provides more than half the effort. 2-[place]uzskoynk-wgmrxj does ALL the effort. Patient does none of the effort to complete the activity. Or, the assistance of 2 or more helpers is required for the patient to complete the activity. If activity was not attempted, code reason: 7-Patient Refused. 9-Not Applicable-not attempted and the patient did not perform the activity before the current illness, exacerbation or injury. 10-Not Attempted due to Environmental Limitations-(lack of equipment, weather restraints, etc.). 88-Not Attempted due to Medical Conditions or Safety Concerns. Roll Left & Right (QC): 6 Sit to Lying (QC): 4 Lying to Sitting/Side of Bed(Q: 4 Sit to Stand (QC): 6 Chair/Afg-lg-Djmvz Xfer(QC): 6 Toilet Transfer (QC): 6 Weight Bearing Right Lower Extremity: Right Full Weight Bearing Left Lower Extremity: Left Full Weight Bearing back precautions, brace on when out of bed Gait Training Does the Patient Walk?: Yes Walk 10 feet (QC): 6 Walk 50 ft with 2 Turns(QC): 6 Gait Persons Needed: 1 Gait Assistive Device: FWW to from [facility] [place] CGA good use of AD Exercises Supine Ex: Ankle pumps, Quad Set, Rolling, Glut sets, Heel Slides, Short Arc Quads, Hip abd/add Supine Reps: 15 Treatments reviewed log roll as pt. twisted slightly to get out of bed, reviewed donning brace, LE exs, as well as trial of sidelying for pain control which was not relieving for pt. so she went back on her back. Assessment Current Status: Good Progress PT Short Term Goals Short Term Goals Time Frame: Jun 18, 2021 Roll Left & Right: 5 Sit to lyin Lying to sitting on side of be: 5 Sit to stand: 4 (SBA) Chair/ooh-ar-etnap transfer: 4 (SBA) Walk 10 feet: 4 (SBA) Walk 50 feet with two turns: 4 (SBA) Walk 150 feet: 4 (SBA) PT Curriculum Developer Goals Curriculum Developer Goals PT Chcf Goals Time Frame: Jul 02, 2021 Roll Left & Right (QC): 6 Sit to Lying (QC): 6 Lying-Sitting on Side/Bed(QC): 6 Sit to Stand (QC): 6 Chair/Tri-xb-Oyrqa Xfer(QC): 6 Toilet Transfer (QC): 6 Car Transfer (QC): 6 Does the Patient Walk: Yes Walk 10 feet (QC): 6 Walk 50ft with 2 Turns (QC): 6 Walk 150 ft (QC): 6 Walking 10ft on Uneven Surface: 6 1 Step (curb) (QC): 4 4 Steps (QC): 4 12 Steps (QC): 88 Picking up an Object (QC): 6 (using woodwork salvage 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) Wheel 50 feet with 2 turns (QC: 9 Wheel 150 feet: 9 PT Plan Treatment/Plan Treatment Plan: Continue Plan of Care Treatment Plan: Bed Mobility, Education, Functional Activity Abimael, Functional Strength, Group Therapy, Gait, Safety, Therapeutic Exercise, Transfers Treatment Duration: Jul 02, 2021 Frequency: At least 5 of 7 days/Wk (IRF) Estimated Hrs Per Day: 1.5 hours per day Patient and/or Family Agrees t: Yes Safety Risks/Education Patient Education: Gait Training, Transfer Techniques, Correct Positioning, Reviewed Don/Doff Brace, Disease Process, Safety Issues Teaching Recipient: Patient Teaching Methods: Demonstration, Discussion Response to Teaching: Verbalize Understanding, Return Demonstration, Reinforcement Needed Time/GCodes Time In: 1235 Time Out: 1305 Total Billed Treatment Time: 30 Total Billed Treatment 1,FA15m,EX15m JESSICA JOHN PTA Jun 12, 2021 13:10
[2021-06-12] MEDS: VENlafaxine XR 75 MG (EFFEXOR XR) CAP PO SCH (17:43)
[2021-06-12 20:00] VITALS: BP 125/59
[2021-06-12] MEDS: GABAPENTIN 100 MG (NEURONTIN) CAP PO SCH (20:41)
[2021-06-12] MEDS: TEMAZEPAM 15 MG (RESTORIL) CAP PO SCH (20:41)
[2021-06-12] MEDS: AMITRIPTYLINE 10 MG (ELAVIL) TAB PO SCH (20:41)
[2021-06-13] MEDS: HYDROcodone/APAP 7.5 MG/325 MG (LORTAB, LORCET PLUS) TABLET PO PRN ×4 (04:43→19:25)
[2021-06-13] MEDS: CYCLOBENZAPRINE 10 MG (FLEXERIL) TAB PO PRN ×2 (05:25→14:05)
[2021-06-13] MEDS: KCL 10 MEQ TAB (MICRO K) PO SCH (06:29)
[2021-06-13] MEDS: inSUlin ASPART (NovoLOG) 1 UNIT/0.01 ML (CHARGE PER UNIT) SC SCH ×4 (06:29→20:44)
--- NOTE | 2021-06-13 06:45 | PM&R Progress Note ---
Subjective HPI/CC On Admission Date Seen by Provider: Jun 13, 2021 Time Seen by Provider: 11:00 Subjective/Events-last exam 06/13/2021: Patient doing really well during the day but nighttime is an issue I adjusted pain medication around a bit more in order to get her more comfortable at night Son and daughter at the bedside and answered all questions to the best of my ability Patient moves around really well Diabetic neuropathy is definitely a factor of her nighttime pain so we will increase Neurontin 06/12/2021: Patient settling in well Pain is mostly in the nighttime so we will put in oxycodone 5 mg at 2100 and 0500 as needed Bowels are moving Feels like she is moving around pretty well Checked meds and labs Diabetic foot ulcer on the left foot will need wound care evaluation Eating and drinking pretty well Review of Systems General: Fatigue, Malaise Musculoskeletal: back pain, leg pain Objective Exam Vital Signs Vital Signs Date Time Temp Pulse Resp B/P (MAP) Pulse Ox O2 Delivery O2 Flow Rate FiO2 06/13/21 20:45 Room Air 06/13/21 19:54 36.2 91 16 124/60 (81) 96 Capillary Refill : General Appearance: No Apparent Distress, WD/WN, Chronically ill, Obese HEENT: PERRL/EOMI, Normal ENT Inspection, Pharynx Normal Neck: Full Range of Motion, Normal Inspection, Non Tender, Supple, Carotid Bruit Respiratory: Chest Non Tender, Lungs Clear, Normal Breath Sounds, No Accessory Muscle Use, No Respiratory Distress Cardiovascular: Regular Rate, Rhythm, No Edema, No Gallop, No JVD, No Murmur, Normal Peripheral Pulses Gastrointestinal: Normal Bowel Sounds, No Organomegaly, No Pulsatile Mass, Non Tender, Soft Back: Normal Inspection, Decreased Range of Motion, Muscle Spasm, Vertebral Tenderness Extremity: Normal Capillary Refill, Normal Inspection, Normal Range of Motion, Non Tender, No Calf Tenderness, No Pedal Edema Neurologic/Psychiatric: Alert, Oriented x3, No Motor/Sensory Deficits, 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 FIM Transfers Therapy Code Descriptions/Definitions Functional [place] Measure: 0=Not Assessed/NA 4=Minimal Assistance 1=Total Assistance 5=Supervision or Setup 2=Maximal Assistance 6=Modified [place] 3=Moderate Assistance 7=Complete IndependenceSCALE: Activities may be completed with or without assistive devices. 8-Jbelhzdhzs-uegkgot completes the activity by him/herself with no assistance from a helper. 5-Set-up or Clean-up Assistance-helper sets up or cleans up; patient completes activity. [place] assists only prior to or following the activity. 4-Supervision or Touching Assistance-helper provides verbal cues and/or touching /steadying and/or contact guard assistance as patient completes activity. Assistance may be provided throughout the activity or intermittently. 3-Partial/Moderate Assistance-helper does LESS THAN HALF the effort. [place] lifts, holds or supports trunk or limbs, but provides less than half the effort. 2-Substantial/Maximal Assistance-helper does MORE THAN HALF the effort. [place] lifts or holds trunk or limbs and provides more than half the effort. 7-Uqxjpcrzp-cewvdp does ALL the effort. Patient does none of the effort to complete the activity. Or, the assistance of 2 or more helpers is required for the patient to complete the activity. If activity was not attempted, code reason: 7-Patient Refused. 9-Not Applicable-not attempted and the patient did not perform the activity before the current illness, exacerbation or injury. 10-Not Attempted due to Environmental Limitations-(lack of equipment, weather restraints, etc.). 88-Not Attempted due to Medical Conditions or Safety Concerns. Roll Left to Right (QC): 6 Sit to Lying (QC): 4 Sit to Stand (QC): 6 Chair/Djh-ai-Ulqhn Xfer(QC): 6 Car Transfer (QC): 4 Gait Training Does the Patient Walk?: Yes Distance: 120'x3, 150'x2 Walk 10 feet (QC): 6 Walk 50 ft with 2 Turns(QC): 6 Walk 150 ft (QC): 6 Walking 10ft/uneven surface-QC: 4 Gait Persons Needed: 1 Gait Assistive Device: FWW Wheelchair Training Does the Pt Use a Wheelchair?: No Wheel 50 ft with 2 turns (QC): 9 Wheel 150 ft (QC): 9 Type of Wheelchair: N/A Stair Training Stair Training: Handrails/: uses walker #of Steps: 1 1 Step (curb) (QC): 4 4 Steps (QC): 88 12 Steps (QC): 88 Stairs: Pattern: Step to Balance Picking up an Object (QC): 4 (using alteration hand due to back precautions) ADL-Treatment Eating (QC): 6 (IND with breakfast. ) Oral Hygiene (QC): 4 (Supervision standing at sink.) Shower/Bathe Self (QC): 3 (Min A with washing LB.) Upper Body Dressing (QC): 3 (Min A with shirt/back brace.) Lower Body Dressing (QC): 2 (Max A with threading LEs, pt able to manage pant hike) On/Off Footwear (QC): 3 (Mod A with donning gripper socks.) Toileting Hygiene (QC): 4 (supervision) Toilet Transfer (QC): 4 (supervisoin) Assessment/Plan Assessment and Plan Assess & Plan/Chief Complaint Assessment: s/p L3-4 LLIF/laminectomy/MIS PSIF on 06/05/[address] Walsh uncomplicated Multiple falls following discharge from [facility] Disruptive sleep cycle postoperatively Chronic Mechanical Lower Back Pain Lumbar spondylosis (most severe at L1-2) HTN GERD Diabetes Mellitus HLD Depression GERD Anxiety Left diabetic foot ulcer Plan: Aggressive rehab Blood sugar management Home meds Supportive care 06/12/2021: Diabetic foot ulcer management Oxycodone at night Maintain bowel regimen 06/13/2021: Supportive care Increase pain medication (1) Lumbar stenosis (2) Diabetes (3) Hypertension CRIS CASTAÑEDA DO Jun 13, 2021 06:45
[2021-06-13] MEDS: PANTOPRAZOLE 20 MG TABLET (PROTONIX) PO SCH (07:36)
[2021-06-13] MEDS: GLIMEPIRIDE 4 MG (AMARYL) TAB PO SCH ×2 (07:36→17:03)
[2021-06-13] MEDS: EMPAGLIFLOZIN 10 MG TABLET (JARDIANCE) PO SCH (07:36)
[2021-06-13] MEDS: lisINopril 20 MG (PRINIVIL) TABLET PO SCH (07:36)
[2021-06-13] MEDS: DOCUSATE SODIUM 100 MG (COLACE) CAP PO SCH ×2 (07:36→21:31)
[2021-06-13] MEDS: DICLOFENAC 1% GEL 100 GM (VOLTAREN) TUBE TOP SCH ×4 (07:37→20:44)
[2021-06-13 07:43] VITALS: BP 105/53
[2021-06-13] MEDS: SENNA W/DOCUSATE (SENOKOT S) TABLET PO SCH ×2 (09:24→21:31)
[2021-06-13] MEDS: polyethylene glycoL POWDER 17 GM (MIRALAX) PACK PO SCH ×2 (09:24→21:31)
--- NOTE | 2021-06-13 10:24 | Physical Therapy Daily Note ---
PT Daily Note-Current Subjective Upon arrival pt was seated in recliner, pt reports pain as 10/10 lowback and buttocks. Pt comments that "the moment I stand I will fall on my butt." DEFECT REPAIRER GLASSWARE says to pt "lets just do seated EX," Pt exclaims she "wants to walk." DEFECT REPAIRER GLASSWARE decides to follow pt with WC. After tx pt stated that her pain was down to an 8/10. DEFECT REPAIRER GLASSWARE us ed this moment to explain to pt that EX can help with pain. Pain Numeric Pain Scale: 10-Worst Possible Pain Location: Medial Location Body Site: Back (Low) Pain Description: Stabbing Mental Status Patient Orientation: Normal For Age Attachments: SCD's, Other-See Comments (Breg back brace) DEFECT REPAIRER GLASSWARE had to repair pts string senior online marketing manager on back brace. Transfers SCALE: Activities may be completed with or without assistive devices. 8-Znlgsoandr-jxrxjwx completes the activity by him/herself with no assistance from a helper. 5-Set-up or Clean-up Assistance-helper sets up or cleans up; patient completes activity. [place] assists only prior to or following the activity. 4-Supervision or Touching Assistance-helper provides verbal cues and/or touching/steadying and/or contact guard assistance as patient completes activity. Assistance may be provided throughout the activity or intermittently. 3-Partial/Moderate Assistance-helper does LESS THAN HALF the effort. [place] lifts, holds or supports trunk or limbs, but provides less than half the effort. 2-Substantial/Maximal Assistance-helper does MORE THAN HALF the effort. [place] lifts or holds trunk or limbs and provides more than half the effort. 8-Tewmplovs-kwarob does ALL the effort. Patient does none of the effort to complete the activity. Or, the assistance of 2 or more helpers is required for the patient to complete the activity. If activity was not attempted, code reason: 7-Patient Refused. 9-Not Applicable-not attempted and the patient did not perform the activity before the current illness, exacerbation or injury. 10-Not Attempted due to Environmental Limitations-(lack of equipment, weather restraints, etc.). 88-Not Attempted due to Medical Conditions or Safety Concerns. Sit to Stand (QC): 6 Weight Bearing Right Lower Extremity: Right Full Weight Bearing Left Lower Extremity: Left Full Weight Bearing back precautions, brace on when out of bed Gait Training Does the Patient Walk?: Yes Walk 10 feet (QC): 4 Walk 50 ft with 2 Turns(QC): 4 Walk 150 ft (QC): 4 Gait Persons Needed: 1 Gait Assistive Device: FWW Decreased step length. slightly shuffling gait. Heavy weight bearing on FWW. Wheelchair Training Does the Pt Use a Wheelchair?: No Exercises Supine Ex: Ankle pumps, Quad Set, Glut sets, Heel Slides (5 ), Hip abd/add Supine Reps: 12 Seated Therapy Exercises: Long arc quads, Hip flexion Seated Reps: 20 NuStep Minutes: 6 NuStep Workload: 4 Assessment Current Status: Good Progress Pts c/o level 10 pain is not in keeping with the level of function she is demo nstrating. PT Short Term Goals Short Term Goals Time Frame: Jun 18, 2021 Roll Left & Right: 5 Sit to lyin Lying to sitting on side of be: 5 Sit to stand: 4 (SBA) Chair/ghc-ot-pzqav transfer: 4 (SBA) Walk 10 feet: 4 (SBA) Walk 50 feet with two turns: 4 (SBA) Walk 150 feet: 4 (SBA) PT Scheduling Coordinator Goals Long-Term Goals PT Long-Term Goals Time Frame: Jul 02, 2021 Roll Left & Right (QC): 6 Sit to Lying (QC): 6 Lying-Sitting on Side/Bed(QC): 6 Sit to Stand (QC): 6 Chair/Yik-aw-Hrsao Xfer(QC): 6 Toilet Transfer (QC): 6 Car Transfer (QC): 6 Does the Patient Walk: Yes Walk 10 feet (QC): 6 Walk 50ft with 2 Turns (QC): 6 Walk 150 ft (QC): 6 Walking 10ft on Uneven Surface: 6 1 Step (curb) (QC): 4 4 Steps (QC): 4 12 Steps (QC): 88 Picking up an Object (QC): 6 (using processing assistant) Wheel 50 feet with 2 turns (QC: 9 Wheel 150 feet: 9 PT Plan Treatment/Plan Treatment Plan: Continue Plan of Care Treatment Plan: Bed Mobility, Education, Functional Activity Abimael, Functional Strength, Group Therapy, Gait, Safety, Therapeutic Exercise, Transfers Treatment Duration: Jul 02, 2021 Frequency: At least 5 of 7 days/Wk (IRF) Estimated Hrs Per Day: 1.5 hours per day Patient and/or Family Agrees t: Yes Safety Risks/Education Patient Education: Gait Training, Transfer Techniques, Correct Positioning, Reviewed Don/Doff Brace, Disease Process, Safety Issues Teaching Recipient: Patient Teaching Methods: Demonstration, Discussion Response to Teaching: Verbalize Understanding, Return Demonstration, Reinforcement Needed Time/GCodes Time In: 900 Time Out: 100 Total Billed Treatment Time: 60 Total Billed Treatment 1, GT 30, EX 30 ROBERTO URIAS PTA Jun 13, 2021 10:24
--- NOTE | 2021-06-13 11:30 | Occupational Ther Daily Note ---
OT Current Status-Daily Note Subjective Pt alert, sitting in recliner visiting with son when OT entered. Pt agreed to therapy. Pain reported 08/23. Mental Status/Objective Patient Orientation: Person, Place, Time, Situation ADL-Treatment Pt agreed to complete shower. Pt sit-stand from recliner with CGA. Pt ambulated to bathroom using FWW with CGA. Pt transferred to toilet with CGA. Pt completed toilet hygiene with supervision. Pt transferred to shower bench. Pt doffed socks using cue worker. Pt doffed UB dressing. Pt performed shower and was able to cleanse UB, chest, abdomen, and used long handled sponge to cleanse upper/lower legs. Pt sit-stand from shower bench using grab bars to cleanse buttocks and lucius area with SBA and vc to keep one hand on grab bars to maintain balance. After set up, pt donned UB dressing. Pt threaded BLE through LB dressing using AE, required min A. Pt used sock aid to don R sock, required assist to don L sock due to bandage. Pt completed oral hygiene and basic grooming task of combing hair while seated in w/c independently. Therapy Code Descriptions/Definitions Functional [place] Measure: 0=Not Assessed/NA 4=Minimal Assistance 1=Total Assistance 5=Supervision or Setup 2=Maximal Assistance 6=Modified [place] 3=Moderate Assistance 7=Complete IndependenceSCALE: Activities may be completed with or without assistive devices. 2-Fbusuwrwcu-xuntagb completes the activity by him/herself with no assistance from a helper. 5-Set-up or Clean-up Assistance-helper sets up or cleans up; patient completes activity. [place] assists only prior to or following the activity. 4-Supervision or Touching Assistance-helper provides verbal cues and/or touching/steadying and/or contact guard assistance as patient completes activity. Assistance may be provided throughout the activity or intermittently. 3-Partial/Moderate Assistance-helper does LESS THAN HALF the effort. [place] lifts, holds or supports trunk or limbs, but provides less than half the effort. 2-Substantial/Maximal Assistance-helper does MORE THAN HALF the effort. [place] lifts or holds trunk or limbs and provides more than half the effort. 3-Exrlyvqav-cvtwmc does ALL the effort. Patient does none of the effort to complete the activity. Or, the assistance of 2 or more helpers is required for the patient to complete the activity. If activity was not attempted, code reason: 7-Patient Refused. 9-Not Applicable-not attempted and the patient did not perform the activity before the current illness, exacerbation or injury. 10-Not Attempted due to Environmental Limitations-(lack of equipment, weather restraints, etc.). 88-Not Attempted due to Medical Conditions or Safety Concerns. Oral Hygiene (QC): 6 Shower/Bathe Self (QC): 4 Upper Body Dressing (QC): 5 Lower Body Dressing (QC): 3 Toileting Hygiene (QC): 4 Toilet Transfer (QC): 4 Other Treatment To increase FM skills and hand strength pt grasped clothespin ranging from least to most difficult to place on laquita for improved independence with opening/closing fasteners alternating between R and L side x1 set. Pt required vc to take time on task due to pt trying to quickly get activity done and ended up dropping clothespin when pinching. Skilled instruction required of 2lb weighted BUE exercises for correct completed. Pt completed x2 sets of 10 reps of BUE 2lb weighted exercises of elbow flexion/extension, shlder abduction/adduction, chest press, and wrist flexion/extension while seated in recliner for increased BUE strength for improved independence with ADLs. Pt demonstrated good technique with verbal and physical demonstration. Pt required resting break in between set due to decreased activity tolerance. After session, pt sitting in recliner with daughter and son present in room. All needs met and call light in reach. Education OT Patient Education: Correct positioning, Energy conservation, Exercise program, Home exercise program, Modified ADL techniques, Purpose of tx/function al activities, Safety issues, Transfer techniques, Use of adapted equipment Teaching Recipient: Patient, Family Teaching Methods: Demonstration, Discussion Response to Teaching: Verbalize Understanding, Return Demonstration OT Short Term Goals Short Term Goals Time Frame: Jun 19, 2021 Shower/bathe self: 4 Upper body dressin Lower body dressin Putting on/taking off footwear: 5 OT Bilingual Student Tutor Goals Mcfp Goals Time Frame: Jun 28, 2021 Eating (QC): 6 Oral Hygiene (QC): 6 Toileting Hygiene (QC): 6 Shower/Bathe Self (QC): 6 Upper Body Dressing (QC): 6 Lower Body Dressing (QC): 6 On/Off Footwear (QC): 6 1=Demonstrate adherence to instructed precautions during ADL tasks. 2=Patient will verbalize/demonstrate understanding of assistive device s/modifications for ADL. 3=Patient will improve strength/tolerance for activity to enable patient to perform ADL's. OT Education/Plan Problem List/Assessment Assessment: Decreased Activ Tolerance, Decreased UE Strength, Impaired I ADL's, Impaired Self-Care Skills Discharge Recommendations Plan/Recommendations: Continue POC Treatment Plan/Plan of Care Patient would benefit from OT for education, treatment and training to promote independence in ADL's, mobility, safety and/or upper extremity function for ADL's. Plan of Care: ADL Retraining, Functional Mobility, Group Exercise/Act as Ind, UE Funct Exercise/Act Treatment Duration: Jun 28, 2021 Frequency: At least 5 of 7 days/Wk (IRF) Estimated Hrs Per Day: 1.5 hours per day Agreement: Yes Rehab Potential: Good Time/GCodes Start Time: 10:00 Stop Time: 11:30 Total Time Billed (hr/min): 90 Billed Treatment Time 1 visit- ADL 3 (47 mins) FA 1 (18 mins) EX 2 (25 mins) TARA FLORES Jun 13, 2021 11:30
--- NOTE | 2021-06-13 12:48 | Physical Therapy Daily Note ---
PT Daily Note-Current Subjective Upon arrival pt was seated in recliner, nurse had finished dressing the pt, housekeeping was present. Pt was ready for PT. Family was present during tx. Pain Location: Lower Location Body Site: Back Comment: Pt reports some discomfort, but doesn't rate. Mental Status Patient Orientation: Normal For Age Transfers SCALE: Activities may be completed with or without assistive devices. 3-Medbdytvdw-hzyknqb completes the activity by him/herself with no assistance from a helper. 5-Set-up or Clean-up Assistance-helper sets up or cleans up; patient completes activity. [place] assists only prior to or following the activity. 4-Supervision or Touching Assistance-helper provides verbal cues and/or touching/steadying and/or contact guard assistance as patient completes activity. Assistance may be provided throughout the activity or intermittently. 3-Partial/Moderate Assistance-helper does LESS THAN HALF the effort. [place] lifts, holds or supports trunk or limbs, but provides less than half the effort. 2-Substantial/Maximal Assistance-helper does MORE THAN HALF the effort. [place] lifts or holds trunk or limbs and provides more than half the effort. 8-Ejdzeiwun-hyostm does ALL the effort. Patient does none of the effort to complete the activity. Or, the assistance of 2 or more helpers is required for the patient to complete the activity. If activity was not attempted, code reason: 7-Patient Refused. 9-Not Applicable-not attempted and the patient did not perform the activity before the current illness, exacerbation or injury. 10-Not Attempted due to Environmental Limitations-(lack of equipment, weather restraints, etc.). 88-Not Attempted due to Medical Conditions or Safety Concerns. Sit to Stand (QC): 6 Car Transfer (QC): 6 Weight Bearing Right Lower Extremity: Right Full Weight Bearing Left Lower Extremity: Left Full Weight Bearing back precautions, brace on when out of bed Gait Training Does the Patient Walk?: Yes Gait Assistive Device: FWW Pt ambulated 40x1, 60 x1, 100 x1, all with FWW, CGA. Heavy weight bearing on FWW, no loss of balance. Exercises Standing: Hip Abduction, Hamstring curls, Heel/toe raises, 3 way Ex=Flex, Abd, Ext, Marching Standing Reps: 20 Assessment Current Status: Good Progress (Pt was doing better, no complaints) PT Short Term Goals Short Term Goals Time Frame: Jun 18, 2021 Roll Left & Right: 5 Sit to lyin Lying to sitting on side of be: 5 Sit to stand: 4 (SBA) Chair/jyv-hz-tiedm transfer: 4 (SBA) Walk 10 feet: 4 (SBA) Walk 50 feet with two turns: 4 (SBA) Walk 150 feet: 4 (SBA) PT [facility] Goals Geological Drafter Goals PT [facility] Goals Time Frame: Jul 02, 2021 Roll Left & Right (QC): 6 Sit to Lying (QC): 6 Lying-Sitting on Side/Bed(QC): 6 Sit to Stand (QC): 6 Chair/Gwc-bp-[place]as[place] Xfer(QC): 6 Toilet Transfer (QC): 6 Car Transfer (QC): 6 Does the Patient Walk: Yes Walk 10 feet (QC): 6 Walk 50ft with 2 Turns (QC): 6 Walk 150 ft (QC): 6 Walking 10ft on Uneven Surface: 6 1 Step (curb) (QC): 4 4 Steps (QC): 4 12 Steps (QC): 88 Picking up an Object (QC): 6 (using inspector filters) Wheel 50 feet with 2 turns (QC: 9 Wheel 150 feet: 9 PT Plan Treatment/Plan Treatment Plan: Continue Plan of Care Treatment Plan: Bed Mobility, Education, Functional Activity Abimael, Functional Strength, Group Therapy, Gait, Safety, Therapeutic Exercise, Transfers Treatment Duration: Jul 02, 2021 Frequency: At least 5 of 7 days/Wk (IRF) Estimated Hrs Per Day: 1.5 hours per day Patient and/or Family Agrees t: Yes Safety Risks/Education Patient Education: Gait Training, Transfer Techniques, Correct Positioning, Safety Issues Response to Teaching: Reinforcement Needed Time/GCodes Time In: 1100 Time Out: 1130 Total Billed Treatment Time: 30 Total Billed Treatment 1, GT, 15, EX 15 ROBERTO URIAS PTA Jun 13, 2021 12:48
[2021-06-13] MEDS: VENlafaxine XR 75 MG (EFFEXOR XR) CAP PO SCH (17:03)
[2021-06-13 19:54] VITALS: BP 124/60
[2021-06-13] MEDS: AMITRIPTYLINE 10 MG (ELAVIL) TAB PO SCH (20:42)
[2021-06-13] MEDS: TEMAZEPAM 15 MG (RESTORIL) CAP PO SCH (20:43)
[2021-06-13] MEDS: GABAPENTIN 300 MG (NEURONTIN) CAP PO SCH (20:43)
[2021-06-13] MEDS ORDERED: ALPRAZolam 0.5 MG (XANAX) TAB PO SCH (21:00)
[2021-06-13] MEDS ORDERED: GABAPENTIN 100 MG (NEURONTIN) CAP PO SCH (21:00)
[2021-06-14] MEDS: GABAPENTIN 300 MG (NEURONTIN) CAP PO SCH ×2 (03:39→20:32)
--- NOTE | 2021-06-14 06:24 | PM&R Progress Note ---
Subjective HPI/CC On Admission Date Seen by Provider: Jun 14, 2021 Time Seen by Provider: 12:30 Subjective/Events-last exam 06/14/2021: Dramatically improved at night last night Pain much improved Moving around really well Discharge plan for Thursday Bowels are moving Blood sugars are elevated from stress 06/13/2021: Patient doing really well during the day but nighttime is an issue I adjusted pain medication around a bit more in order to get her more comfortable at night Son and daughter at the bedside and answered all questions to the best of my ability Patient moves around really well Diabetic neuropathy is definitely a factor of her nighttime pain so we will increase Neurontin 06/12/2021: Patient settling in well Pain is mostly in the nighttime so we will put in oxycodone 5 mg at 2100 and 0500 as needed Bowels are moving Feels like she is moving around pretty well Checked meds and labs Diabetic foot ulcer on the left foot will need wound care evaluation Eating and drinking pretty well Review of Systems General: Fatigue, Malaise Musculoskeletal: back pain Objective Exam Vital Signs Vital Signs Date Time Temp Pulse Resp B/P (MAP) Pulse Ox O2 Delivery O2 Flow Rate FiO2 06/14/21 21:25 Room Air 06/14/21 19:35 36.2 98 16 112/67 (82) 92 Capillary Refill : General Appearance: No Apparent Distress, WD/WN, Chronically ill, Obese HEENT: PERRL/EOMI, Normal ENT Inspection, Pharynx Normal Neck: Full Range of Motion, Normal Inspection, Non Tender, Supple, Carotid Bruit Respiratory: Chest Non Tender, Lungs Clear, Normal Breath Sounds, No Accessory Muscle Use, No Respiratory Distress Cardiovascular: Regular Rate, Rhythm, No Edema, No Gallop, No JVD, No Murmur, Normal Peripheral Pulses Gastrointestinal: Normal Bowel Sounds, No Organomegaly, No Pulsatile Mass, Non Tender, Soft Back: Normal Inspection, Decreased Range of Motion, Muscle Spasm, Vertebral Tenderness Extremity: Normal Capillary Refill, Normal Inspection, Normal Range of Motion, Non Tender, No Calf Tenderness, No Pedal Edema Neurologic/Psychiatric: Alert, Oriented x3, No Motor/Sensory Deficits, physician recruiter II- XII Norm as Tested, Depressed Affect Skin: Normal Color, Warm/Dry Lymphatic: No Adenopathy Results/Procedures Lab Patient resulted labs reviewed. FIM Transfers Therapy Code Descriptions/Definitions Functional [place] Measure: 0=Not Assessed/NA 4=Minimal Assistance 1=Total Assistance 5=Supervision or Setup 2=Maximal Assistance 6=Modified [place] 3=Moderate Assistance 7=Complete IndependenceSCALE: Activities may be completed with or without assistive devices. 7-Oyekzhovkh-tnjpzeo completes the activity by him/herself with no assistance from a helper. 5-Set-up or Clean-up Assistance-helper sets up or cleans up; patient completes activity. [place] assists only prior to or following the activity. 4-Supervision or Touching Assistance-helper provides verbal cues and/or touching/steadying and/or contact guard assistance as patient completes activity. Assistance may be provided throughout the activity or intermittently. 3-Partial/Moderate Assistance-helper does LESS THAN HALF the effort. [place] lifts, holds or supports trunk or limbs, but provides less than half the effort. 2-Substantial/Maximal Assistance-helper does MORE THAN HALF the effort. [place] lifts or holds trunk or limbs and provides more than half the effort. 9-Xktsfvpvw-kaolep does ALL the effort. Patient does none of the effort to complete the activity. Or, the assistance of 2 or more helpers is required for the patient to complete the activity. If activity was not attempted, code reason: 7-Patient Refused. 9-Not Applicable-not attempted and the patient did not perform the activity before the current illness, exacerbation or injury. 10-Not Attempted due to Environmental Limitations-(lack of equipment, weather restraints, etc.). 88-Not Attempted due to Medical Conditions or Safety Concerns. Roll Left to Right (QC): 6 Sit to Lying (QC): 4 Sit to Stand (QC): 6 Chair/Jla-iu-Ludol Xfer(QC): 6 Car Transfer (QC): 6 Gait Training Does the Patient Walk?: Yes Walk 10 feet (QC): 4 Walk 50 ft with 2 Turns(QC): 4 Walk 150 ft (QC): 4 Walking 10ft/uneven surface-QC: 4 Gait Persons Needed: 1 Gait Assistive Device: FWW Wheelchair Training Does the Pt Use a Wheelchair?: No Wheel 50 ft with 2 turns (QC): 9 Wheel 150 ft (QC): 9 Type of Wheelchair: N/A Stair Training Stair Training: Handrails/: uses walker #of Steps: 1 1 Step (curb) (QC): 4 4 Steps (QC): 88 12 Steps (QC): 88 Stairs: Pattern: Step to Balance Picking up an Object (QC): 4 (using funeral assistant due to back precautions) ADL-Treatment Eating (QC): 6 (IND with breakfast. ) Oral Hygiene (QC): 6 Shower/Bathe Self (QC): 4 Upper Body Dressing (QC): 5 Lower Body Dressing (QC): 3 On/Off Footwear (QC): 3 (Mod A with donning gripper socks.) Toileting Hygiene (QC): 4 Toilet Transfer (QC): 4 Assessment/Plan Assessment and Plan Assess & Plan/Chief Complaint Assessment: s/p L3-4 LLIF/laminectomy/MIS PSIF on 06/05/[address] Walsh uncomplicated Multiple falls following discharge from [facility] Disruptive sleep cycle postoperatively Chronic Mechanical Lower Back Pain Lumbar spondylosis (most severe at L1-2) HTN GERD Diabetes Mellitus HLD Depression GERD Anxiety Left diabetic foot ulcer Plan: Aggressive rehab Blood sugar management Home meds Supportive care 06/12/2021: Diabetic foot ulcer management Oxycodone at night Maintain bowel regimen 06/13/2021: Supportive care Increase pain medication 06/14/2021: Supportive care Improved pain (1) Lumbar stenosis (2) Diabetes (3) Hypertension CRIS CASTAÑEDA DO Jun 14, 2021 06:24
[2021-06-14] MEDS: inSUlin ASPART (NovoLOG) 1 UNIT/0.01 ML (CHARGE PER UNIT) SC SCH ×4 (06:36→20:33)
[2021-06-14] MEDS: KCL 10 MEQ TAB (MICRO K) PO SCH (06:37)
[2021-06-14] MEDS: CYCLOBENZAPRINE 10 MG (FLEXERIL) TAB PO PRN ×3 (06:37→19:32)
[2021-06-14 07:29] VITALS: BP 92/54
[2021-06-14] MEDS: EMPAGLIFLOZIN 10 MG TABLET (JARDIANCE) PO SCH (08:08)
[2021-06-14] MEDS: GLIMEPIRIDE 4 MG (AMARYL) TAB PO SCH ×2 (08:08→17:06)
[2021-06-14] MEDS: SENNA W/DOCUSATE (SENOKOT S) TABLET PO SCH ×2 (08:08→21:06)
[2021-06-14] MEDS: PANTOPRAZOLE 20 MG TABLET (PROTONIX) PO SCH (08:08)
[2021-06-14] MEDS: polyethylene glycoL POWDER 17 GM (MIRALAX) PACK PO SCH ×2 (08:08→21:06)
[2021-06-14] MEDS: DOCUSATE SODIUM 100 MG (COLACE) CAP PO SCH ×2 (08:08→20:32)
[2021-06-14] MEDS: HYDROcodone/APAP 7.5 MG/325 MG (LORTAB, LORCET PLUS) TABLET PO PRN ×3 (08:10→23:05)
[2021-06-14] MEDS: DICLOFENAC 1% GEL 100 GM (VOLTAREN) TUBE TOP SCH ×4 (08:10→20:34)
--- NOTE | 2021-06-14 09:34 | Occupational Ther Daily Note ---
OT Current Status-Daily Note Subjective Pt in bed, agreeable to OT Tx. During tx, pt states that she thinks UE exercises/strengthening is a waste of time when it is her walking that is giving her trouble. OT educated pt on the difference in OT/PT and how strengthening UEs can help improve independence with transfers/mobility. Mental Status/Objective Patient Orientation: Normal For Age ADL-Treatment Therapy Code Descriptions/Definitions Functional [place] Measure: 0=Not Assessed/NA 4=Minimal Assistance 1=Total Assistance 5=Supervision or Setup 2=Maximal Assistance 6=Modified [place] 3=Moderate Assistance 7=Complete IndependenceSCALE: Activities may be completed with or without assistive devices. 9-Xiddgoeoqn-xafhfkg completes the activity by him/herself with no assistance from a helper. 5-Set-up or Clean-up Assistance-helper sets up or cleans up; patient completes activity. [place] assists only prior to or following the activity. 4-Supervision or Touching Assistance-helper provides verbal cues and/or touching/steadying and/or contact guard assistance as patient completes activity. Assistance may be provided throughout the activity or intermittently. 3-Partial/Moderate Assistance-helper does LESS THAN HALF the effort. [place] lifts, holds or supports trunk or limbs, but provides less than half the effort. 2-Substantial/Maximal Assistance-helper does MORE THAN HALF the effort. [place] lifts or holds trunk or limbs and provides more than half the effort. 9-Nxhtcyest-gqnomv does ALL the effort. Patient does none of the effort to complete the activity. Or, the assistance of 2 or more helpers is required for the patient to complete the activity. If activity was not attempted, code reason: 7-Patient Refused. 9-Not Applicable-not attempted and the patient did not perform the activity before the current illness, exacerbation or injury. 10-Not Attempted due to Environmental Limitations-(lack of equipment, weather restraints, etc.). 88-Not Attempted due to Medical Conditions or Safety Concerns. Eating (QC): 6 (per pt reprot) Oral Hygiene (QC): 6 (IND standing at sink) Upper Body Dressing (QC): 3 (min A with back brace) Lower Body Dressing (QC): 4 (SBA, pt required min cues to maintain precautions.) Toileting Hygiene (QC): 6 Toilet Transfer (QC): 6 Other Treatment Pt in bed, transferred supine to sit EOB, SBA. Pt donned back brace at EOB, then used FWW to transfer into bathroom and onto toilet. Pt completed toileting, then transferred back EOB to get dressed. Pt required min cues to maintain back precautions during ADLs, and min A with back brace. Pt used FWW to perform functional mobility to therapy gym, SBA. In order to increase BUE Strength and activity tolerance, pt completed pipe tree task, 1lb wrist weights bilaterally. Pt able to follow x3 printed patterns, no errors. Pt removed beads from heavy resistance theraputty, required cue to locate last bead. Pt used FWW to return to room, SBA, transferring to recliner.Post tx, pt up in recliner, call light in reach and all needs met. Education OT Patient Education: Correct positioning, Energy conservation, Exercise program, Modified ADL techniques, Progress toward Goal/Update tx plan, Purpose of tx/functional activities Teaching Recipient: Patient Teaching Methods: Discussion OT Short Term Goals Short Term Goals Time Frame: Jun 19, 2021 Shower/bathe self: 4 Upper body dressin Lower body dressin Putting on/taking off footwear: 5 OT Resource Conservation Manager Goals Half-Way Goals Time Frame: Jun 28, 2021 Eating (QC): 6 Oral Hygiene (QC): 6 Toileting Hygiene (QC): 6 Shower/Bathe Self (QC): 6 Upper Body Dressing (QC): 6 Lower Body Dressing (QC): 6 On/Off Footwear (QC): 6 1=Demonstrate adherence to instructed precautions during ADL tasks. 2=Patient will verbalize/demonstrate understanding of assistive devices/modifications for ADL. 3=Patient will improve strength/tolerance for activity to enable patient to perform ADL's. OT Education/Plan Problem List/Assessment Assessment: Decreased Activ Tolerance, Decreased UE Strength, Impaired Funct Balance, Impaired I ADL's, Impaired Self-Care Skills Discharge Recommendations Plan/Recommendations: Continue POC Treatment Plan/Plan of Care Patient would benefit from OT for education, treatment and training to promote independence in ADL's, mobility, safety and/or upper extremity function for ADL's. Plan of Care: ADL Retraining, Functional Mobility, Group Exercise/Act as Ind, UE Funct Exercise/Act Treatment Duration: Jun 28, 2021 Frequency: At least 5 of 7 days/Wk (IRF) Estimated Hrs Per Day: 1.5 hours per day Agreement: Yes Rehab Potential: Good Time/GCodes Start Time: 09:00 Stop Time: 10:00 Total Time Billed (hr/min): 60 Billed Treatment Time 1, ADL (20'), FA 3 (40') AN ARMENDARIZ OT Jun 14, 2021 09:34
[2021-06-14 09:47] VITALS: BP 135/61
[2021-06-14] MEDS: lisINopril 20 MG (PRINIVIL) TABLET PO SCH (09:48)
--- NOTE | 2021-06-14 10:57 | Physical Therapy Daily Note ---
PT Daily Note-Current Subjective Pt. up in recliner and agrees to Rx, states she is still having tightness and pain down her legs. Agrees to stretching and exercise and gait. States after Rx that she believes she feels a little better. Pain Location: No Pain Reported Mental Status Patient Orientation: Normal For Age Attachments: Other-See Comments (BREG back brace) Transfers SCALE: Activities may be completed with or without assistive devices. 9-Chezigaxzp-hyynnnf completes the activity by him/herself with no assistance from a helper. 5-Set-up or Clean-up Assistance-helper sets up or cleans up; patient completes activity. [place] assists only prior to or following the activity. 4-Supervision or Touching Assistance-helper provides verbal cues and/or touching/steadying and/or contact guard assistance as patient completes activity. Assistance may be provided throughout the activity or intermittently. 3-Partial/Moderate Assistance-helper does LESS THAN HALF the effort. [place] lifts, holds or supports trunk or limbs, but provides less than half the effort. 2-Substantial/Maximal Assistance-helper does MORE THAN HALF the effort. [place] lifts or holds trunk or limbs and provides more than half the effort. 5-Lcutkdjdo-tfqxzm does ALL the effort. Patient does none of the effort to complete the activity. Or, the assistance of 2 or more helpers is required for the patient to complete the activity. If activity was not attempted, code reason: 7-Patient Refused. 9-Not Applicable-not attempted and the patient did not perform the activity before the current illness, exacerbation or injury. 10-Not Attempted due to Environmental Limitations-(lack of equipment, weather restraints, etc.). 88-Not Attempted due to Medical Conditions or Safety Concerns. Roll Left & Right (QC): 4 Sit to Lying (QC): 4 Lying to Sitting/Side of Bed(Q: 4 Sit to Stand (QC): 4 Chair/Mgg-zy-Yvfcc Xfer(QC): 4 log roll education and practice as well as practice donning and doffing brace with cues. Weight Bearing Right Lower Extremity: Right Full Weight Bearing Left Lower Extremity: Left Full Weight Bearing back precautions, brace on when out of bed Gait Training Does the Patient Walk?: Yes Walk 10 feet (QC): 4 Walk 50 ft with 2 Turns(QC): 4 Walk 150 ft (QC): 4 Gait Persons Needed: 1 Gait Assistive Device: FWW gait 150 ft x 1, 100ft x 1, 50 ft x 1, CGA, equal step length good use of AD Exercises Supine Ex: Ankle pumps (HC stretches x 4 ), Straight leg raise (HC stretches x 4 bilat ) Seated Therapy Exercises: Ankle pumps, Sit to stand, Long arc quads Seated Reps: 15 bilat HC and HS stretches gentle x 4 ea at 20 sec each NuStep Minutes: 8 NuStep Workload: 2 Treatments gait, log roll, sit to stand, stretching as above and nustep etc Assessment Current Status: Good Progress PT Short Term Goals Short Term Goals Time Frame: Jun 18, 2021 Roll Left & Right: 5 Sit to lyin Lying to sitting on side of be: 5 Sit to stand: 4 (SBA) Chair/jqw-ba-rdhla transfer: 4 (SBA) Walk 10 feet: 4 (SBA) Walk 50 feet with two turns: 4 (SBA) Walk 150 feet: 4 (SBA) PT Seismograph Observer Goals Care Home Goals PT Care Home Goals Time Frame: Jul 02, 2021 Roll Left & Right (QC): 6 Sit to Lying (QC): 6 Lying-Sitting on Side/Bed(QC): 6 Sit to Stand (QC): 6 Chair/Hbc-fz-Wklwt Xfer(QC): 6 Toilet Transfer (QC): 6 Car Transfer (QC): 6 Does the Patient Walk: Yes Walk 10 feet (QC): 6 Walk 50ft with 2 Turns (QC): 6 Walk 150 ft (QC): 6 Walking 10ft on Uneven Surface: 6 1 Step (curb) (QC): 4 4 Steps (QC): 4 12 Steps (QC): 88 Picking up an Object (QC): 6 (using costing manager) Wheel 50 feet with 2 turns (QC: 9 Wheel 150 feet: 9 PT Plan Treatment/Plan Treatment Plan: Continue Plan of Care Treatment Plan: Bed Mobility, Education, Functional Activity Abimael, Functional Strength, Group Therapy, Gait, Safety, Therapeutic Exercise, Transfers Treatment Duration: Jul 02, 2021 Frequency: At least 5 of 7 days/Wk (IRF) Estimated Hrs Per Day: 1.5 hours per day Patient and/or Family Agrees t: Yes Safety Risks/Education Patient Education: Gait Training, Transfer Techniques, Correct Positioning, Reviewed Don/Doff Brace, Safety Issues Teaching Recipient: Patient Teaching Methods: Demonstration, Discussion Response to Teaching: Verbalize Understanding, Return Demonstration, Reinforcement Needed Time/GCodes Time In: 1000 Time Out: 1100 Total Billed Treatment Time: 60 Total Billed Treatment 1,GT15m,EX30m,FA15m JESSICA JOHN DICTATING MACHINE MECHANIC Jun 14, 2021 10:57
--- NOTE | 2021-06-14 12:49 | Occupational Ther Daily Note ---
OT Current Status-Daily Note Subjective Pt in recliner, agreeable to OT Tx ADL-Treatment Therapy Code Descriptions/Definitions Functional [place] Measure: 0=Not Assessed/NA 4=Minimal Assistance 1=Total Assistance 5=Supervision or Setup 2=Maximal Assistance 6=Modified [place] 3=Moderate Assistance 7=Complete IndependenceSCALE: Activities may be completed with or without assistive devices. 2-Ieiukqzpuf-oinwpau completes the activity by him/herself with no assistance from a helper. 5-Set-up or Clean-up Assistance-helper sets up or cleans up; patient completes activity. [place] assists only prior to or following the activity. 4-Supervision or Touching Assistance-helper provides verbal cues and/or touching/steadying and/or contact guard assistance as patient completes activity. Assistance may be provided throughout the activity or intermittently. 3-Partial/Moderate Assistance-helper does LESS THAN HALF the effort. [place] lifts, holds or supports trunk or limbs, but provides less than half the effort. 2-Substantial/Maximal Assistance-helper does MORE THAN HALF the effort. [place] lifts or holds trunk or limbs and provides more than half the effort. 0-Qbvqxmlxn-zmwyll does ALL the effort. Patient does none of the effort to complete the activity. Or, the assistance of 2 or more helpers is required for the patient to complete the activity. If activity was not attempted, code reason: 7-Patient Refused. 9-Not Applicable-not attempted and the patient did not perform the activity before the current illness, exacerbation or injury. 10-Not Attempted due to Environmental Limitations-(lack of equipment, weather restraints, etc.). 88-Not Attempted due to Medical Conditions or Safety Concerns. Other Treatment OT tx with focus on increasing BUE Strength and activity tolerance. Pt completed the following exercises with 2lb wrist weight [id number]: shoulder flexion, elbow flexion/extension, and supination/pronation. 1x15 reps of the following with 2lb weights: wrist flexion, wrist extension, and front punch. Pt's daughter arrived mid treatment. OT provided family education to pt's daughter, explaining pt's current level of function with self care tasks, and recommendations for AE. Pt looking up sock aide on [employer] during tx. Pt's daughter reports no other concerns at this time. Post tx, pt up in recliner, call light in reach and all needs met. Education OT Patient Education: Correct positioning, Energy conservation, Modified ADL techniques, Progress toward Goal/Update tx plan, Purpose of tx/functional activities, Rehab process Teaching Recipient: Patient Teaching Methods: Discussion Response to Teaching: Verbalize Understanding OT Short Term Goals Short Term Goals Time Frame: Jun 19, 2021 Shower/bathe self: 4 Upper body dressin Lower body dressin Putting on/taking off footwear: 5 OT Certified Master Locksmith Goals Certified Master Locksmith Goals Time Frame: Jun 28, 2021 Eating (QC): 6 Oral Hygiene (QC): 6 Toileting Hygiene (QC): 6 Shower/Bathe Self (QC): 6 Upper Body Dressing (QC): 6 Lower Body Dressing (QC): 6 On/Off Footwear (QC): 6 1=Demonstrate adherence to instructed precautions during ADL tasks. 2=Patient will verbalize/demonstrate understanding of assistive devices/modifications for ADL. 3=Patient will improve strength/tolerance for activity to enable patient to perform ADL's. OT Education/Plan Problem List/Assessment Assessment: Decreased Activ Tolerance, Decreased UE Strength, Impaired Funct Balance, Impaired I ADL's, Impaired Self-Care Skills Discharge Recommendations Plan/Recommendations: Continue POC Treatment Plan/Plan of Care Patient would benefit from OT for education, treatment and training to promote independence in ADL's, mobility, safety and/or upper extremity function for ADL's. Plan of Care: ADL Retraining, Functional Mobility, Group Exercise/Act as Ind, UE Funct Exercise/Act Treatment Duration: Jun 28, 2021 Frequency: At least 5 of 7 days/Wk (IRF) Estimated Hrs Per Day: 1.5 hours per day Agreement: Yes Rehab Potential: Good Time/GCodes Start Time: 11:30 Stop Time: 12:05 Total Time Billed (hr/min): 35 Billed Treatment Time 1, EX 2 AN ARMENDARIZ OT Jun 14, 2021 12:49
--- NOTE | 2021-06-14 13:14 | Physical Therapy Daily Note ---
PT Daily Note-Current Subjective Agrees to Rx, no new c/o. Daughter present. Pain Location: No Pain Reported Mental Status Patient Orientation: Normal For Age Attachments: Other-See Comments (Breg ) Transfers SCALE: Activities may be completed with or without assistive devices. 8-Faqvujgpkv-yrgebim completes the activity by him/herself with no assistance from a helper. 5-Set-up or Clean-up Assistance-helper sets up or cleans up; patient completes activity. [place] assists only prior to or following the activity. 4-Supervision or Touching Assistance-helper provides verbal cues and/or t ouching/steadying and/or contact guard assistance as patient completes activity. Assistance may be provided throughout the activity or intermittently. 3-Partial/Moderate Assistance-helper does LESS THAN HALF the effort. [place] lifts, holds or supports trunk or limbs, but provides less than half the effort. 2-Substantial/Maximal Assistance-helper does MORE THAN HALF the effort. [place] lifts or holds trunk or limbs and provides more than half the effort. 5-Qqjpjcqxm-tblyuh does ALL the effort. Patient does none of the effort to complete the activity. Or, the assistance of 2 or more helpers is required for the patient to complete the activity. If activity was not attempted, code reason: 7-Patient Refused. 9-Not Applicable-not attempted and the patient did not perform the activity before the current illness, exacerbation or injury. 10-Not Attempted due to Environmental Limitations-(lack of equipment, weather restraints, etc.). 88-Not Attempted due to Medical Conditions or Safety Concerns. Roll Left & Right (QC): 6 Sit to Lying (QC): 4 Lying to Sitting/Side of Bed(Q: 4 Sit to Stand (QC): 4 Chair/Wyc-sm-Rajzi Xfer(QC): 4 Toilet Transfer (QC): 4 Weight Bearing Right Lower Extremity: Right Full Weight Bearing Left Lower Extremity: Left Full Weight Bearing back precautions, brace on when out of bed Gait Training Does the Patient Walk?: Yes Gait Assistive Device: FWW gait with LNN802 ft x2 SBA good use of FWW , equal step length Exercises Supine Ex: Ankle pumps, Rolling, Heel Slides, Short Arc Quads, Scooting, Hip abd/add (clam shells, assisted hip abd) Supine Reps: 12 Treatments TRFs, application of brace, gait, LE ex Assessment Current Status: Good Progress PT Short Term Goals Short Term Goals Time Frame: Jun 18, 2021 Roll Left & Right: 5 Sit to lyin Lying to sitting on side of be: 5 Sit to stand: 4 (SBA) Chair/nzh-aa-hahto transfer: 4 (SBA) Walk 10 feet: 4 (SBA) Walk 50 feet with two turns: 4 (SBA) Walk 150 feet: 4 (SBA) PT Optical Mechanic Apprentice Goals Correction Goals PT Correction Goals Time Frame: Jul 02, 2021 Roll Left & Right (QC): 6 Sit to Lying (QC): 6 Lying-Sitting on Side/Bed(QC): 6 Sit to Stand (QC): 6 Chair/Oih-kg-Noxos Xfer(QC): 6 Toilet Transfer (QC): 6 Car Transfer (QC): 6 Does the Patient Walk: Yes Walk 10 feet (QC): 6 Walk 50ft with 2 Turns (QC): 6 Walk 150 ft (QC): 6 Walking 10ft on Uneven Surface: 6 1 Step (curb) (QC): 4 4 Steps (QC): 4 12 Steps (QC): 88 Picking up an Object (QC): 6 (using wildlife biologist) Wheel 50 feet with 2 turns (QC: 9 Wheel 150 feet: 9 PT Plan Treatment/Plan Treatment Plan: Continue Plan of Care Treatment Plan: Bed Mobility, Education, Functional Activity Abimael, Functional Strength, Group Therapy, Gait, Safety, Therapeutic Exercise, Transfers Treatment Duration: Jul 02, 2021 Frequency: At least 5 of 7 days/Wk (IRF) Estimated Hrs Per Day: 1.5 hours per day Patient and/or Family Agrees t: Yes Safety Risks/Education Patient Education: Gait Training, Transfer Techniques, Correct Positioning, Reviewed Don/Doff Brace Teaching Recipient: Patient Teaching Methods: Demonstration, Discussion Response to Teaching: Verbalize Understanding, Return Demonstration, Reinforcement Needed Time/GCodes Time In: 1230 Time Out: 1300 Total Billed Treatment Time: 30 Total Billed Treatment 1,EX15m,GT15m ROBERTO URIAS FINISHING INSPECTOR Jun 14, 2021 13:14
[2021-06-14] MEDS: VENlafaxine XR 75 MG (EFFEXOR XR) CAP PO SCH (17:06)
[2021-06-14 19:35] VITALS: BP 112/67
[2021-06-14] MEDS: TEMAZEPAM 15 MG (RESTORIL) CAP PO SCH (20:32)
[2021-06-14] MEDS: AMITRIPTYLINE 10 MG (ELAVIL) TAB PO SCH (20:32)
[2021-06-15] MEDS: GABAPENTIN 300 MG (NEURONTIN) CAP PO SCH ×2 (02:56→21:54)
[2021-06-15] MEDS: HYDROcodone/APAP 7.5 MG/325 MG (LORTAB, LORCET PLUS) TABLET PO PRN ×4 (06:08→21:58)
[2021-06-15] MEDS: inSUlin ASPART (NovoLOG) 1 UNIT/0.01 ML (CHARGE PER UNIT) SC SCH ×4 (06:14→21:51)
[2021-06-15] MEDS: KCL 10 MEQ TAB (MICRO K) PO SCH (06:29)
--- NOTE | 2021-06-15 07:42 | PM&R Progress Note ---
Subjective HPI/CC On Admission Date Seen by Provider: Jun 15, 2021 Time Seen by Provider: 12:00 Subjective/Events-last exam 06/15/2021: Patient doing really well Pain does occur but pain medication does help Blood sugars are reviewed Checked meds labs 06/14/2021: Dramatically improved at night last night Pain much improved Moving around really well Discharge plan for Thursday Bowels are moving Blood sugars are elevated from stress 06/13/2021: Patient doing really well during the day but nighttime is an issue I adjusted pain medication around a bit more in order to get her more comfortable at night Son and daughter at the bedside and answered all questions to the best of my ability Patient moves around really well Diabetic neuropathy is definitely a factor of her nighttime pain so we will increase Neurontin 06/12/2021: Patient settling in well Pain is mostly in the nighttime so we will put in oxycodone 5 mg at 2100 and 0500 as needed Bowels are moving Feels like she is moving around pretty well Checked meds and labs Diabetic foot ulcer on the left foot will need wound care evaluation Eating and drinking pretty well Review of Systems General: Fatigue Musculoskeletal: back pain Objective Exam Vital Signs Vital Signs Date Time Temp Pulse Resp B/P (MAP) Pulse Ox O2 Delivery O2 Flow Rate FiO2 06/15/21 20:15 36.8 93 20 144/67 (92) 95 Room Air Capillary Refill : General Appearance: No Apparent Distress, WD/WN, Chronically ill, Obese HEENT: PERRL/EOMI, Normal ENT Inspection, Pharynx Normal Neck: Full Range of Motion, Normal Inspection, Non Tender, Supple, Carotid Bruit Respiratory: Chest Non Tender, Lungs Clear, Normal Breath Sounds, No Accessory Muscle Use, No Respiratory Distress Cardiovascular: Regular Rate, Rhythm, No Edema, No Gallop, No JVD, No Murmur, Normal Peripheral Pulses Gastrointestinal: Normal Bowel Sounds, No Organomegaly, No Pulsatile Mass, Non Tender, Soft Back: Normal Inspection, Decreased Range of Motion, Muscle Spasm, Vertebral Tenderness Extremity: Normal Capillary Refill, Normal Inspection, Normal Range of Motion, Non Tender, No Calf Tenderness, No Pedal Edema Neurologic/Psychiatric: Alert, Oriented x3, No Motor/Sensory Deficits, forestry faculty member II- XII Norm as Tested, Depressed Affect Skin: Normal Color, Warm/Dry Lymphatic: No Adenopathy Results/Procedures Lab Patient resulted labs reviewed. [facility]IM Transfers Therapy Code Descriptions/Definitions Functional [place] Measure: 0=Not Assessed/NA 4=Minimal Assistance 1=Total Assistance 5=Supervision or Setup 2=Maximal Assistance 6=Modified [place] 3=Moderate Assistance 7=Complete IndependenceSCALE: Activities may be completed with or without assistive devices. 0-Emoqhnlrkc-nmrxzmb completes the activity by him/herself with no assistance from a helper. 5-Set-up or Clean-up Assistance-helper sets up or cleans up; patient completes activity. [place] assists only prior to or following the activity. 4-Supervision or Touching Assistance-helper provides verbal cues and/or touching/steadying and/or contact guard assistance as patient completes activity. Assistance may be provided throughout the activity or intermittently. 3-Partial/Moderate Assistance-helper does LESS THAN HALF the effort. [place] lifts, holds or supports trunk or limbs, but provides less than half the effort. 2-Substantial/Maximal Assistance-helper does MORE THAN HALF the effort. [place] lifts or holds trunk or limbs and provides more than half the effort. 3-Nhrgideem-uhujzn does ALL the effort. Patient does none of the effort to complete the activity. Or, the assistance of 2 or more helpers is required for the patient to complete the activity. If activity was not attempted, code reason: 7-Patient Refused. 9-Not Applicable-not attempted and the patient did not perform the activity before the current illness, exacerbation or injury. 10-Not Attempted due to Environmental Limitations-(lack of equipment, weather restraints, etc.). 88-Not Attempted due to Medical Conditions or Safety Concerns. Roll Left to Right (QC): 6 Sit to Lying (QC): 4 Sit to Stand (QC): 4 Chair/Gie-yi-Lnmle Xfer(QC): 4 Car Transfer (QC): 6 Gait Training Does the Patient Walk?: Yes Walk 10 feet (QC): 4 Walk 50 ft with 2 Turns(QC): 4 Walk 150 ft (QC): 4 Walking 10ft/uneven surface-QC: 4 Gait Persons Needed: 1 Gait Assistive Device: FWW Wheelchair Training Does the Pt Use a Wheelchair?: No Wheel 50 ft with 2 turns (QC): 9 Wheel 150 ft (QC): 9 Type of Wheelchair: N/A Stair Training Stair Training: Handrails/: uses walker #of Steps: 1 1 Step (curb) (QC): 4 4 Steps (QC): 88 12 Steps (QC): 88 Stairs: Pattern: Step to Balance Picking up an Object (QC): 4 (using import/export analyst due to back precautions) ADL-Treatment Eating (QC): 6 (per pt reprot) Oral Hygiene (QC): 6 (IND standing at sink) Shower/Bathe Self (QC): 4 Upper Body Dressing (QC): 3 (min A with back brace) Lower Body Dressing (QC): 4 (SBA, pt required min cues to maintain precautions.) On/Off Footwear (QC): 3 (Mod A with donning gripper socks.) Toileting Hygiene (QC): 6 Toilet Transfer (QC): 6 Assessment/Plan Assessment and Plan Assess & Plan/Chief Complaint Assessment: s/p L3-4 LLIF/laminectomy/MIS PSIF on 06/05/[address] Walsh uncomplicated Multiple falls following discharge from [facility] Disruptive sleep cycle postoperatively Chronic Mechanical Lower Back Pain Lumbar spondylosis (most severe at L1-2) HTN GERD Diabetes Mellitus HLD Depression GERD Anxiety Left diabetic foot ulcer Plan: Aggressive rehab Blood sugar management Home meds Supportive care 06/12/2021: Diabetic foot ulcer management Oxycodone at night Maintain bowel regimen 06/13/2021: Supportive care Increase pain medication 06/14/2021: Supportive care Improved pain 06/15/2021: Supportive care (1) Lumbar stenosis (2) Diabetes (3) Hypertension CRIS CASTAÑEDA DO Jun 15, 2021 07:42
[2021-06-15] MEDS: CYCLOBENZAPRINE 10 MG (FLEXERIL) TAB PO PRN ×3 (08:22→21:58)
[2021-06-15] MEDS: PANTOPRAZOLE 20 MG TABLET (PROTONIX) PO SCH (08:22)
[2021-06-15] MEDS: EMPAGLIFLOZIN 10 MG TABLET (JARDIANCE) PO SCH (08:22)
[2021-06-15] MEDS: SENNA W/DOCUSATE (SENOKOT S) TABLET PO SCH ×2 (08:22→21:30)
[2021-06-15] MEDS: DOCUSATE SODIUM 100 MG (COLACE) CAP PO SCH ×2 (08:22→21:30)
[2021-06-15] MEDS: GLIMEPIRIDE 4 MG (AMARYL) TAB PO SCH ×2 (08:22→17:51)
[2021-06-15] MEDS: polyethylene glycoL POWDER 17 GM (MIRALAX) PACK PO SCH ×2 (08:23→21:30)
[2021-06-15] MEDS: DICLOFENAC 1% GEL 100 GM (VOLTAREN) TUBE TOP SCH ×4 (08:24→21:54)
[2021-06-15 08:45] VITALS: BP 104/49
--- NOTE | 2021-06-15 11:00 | Physical Therapy Daily Note ---
PT Daily Note-Current Subjective Pt reports mild lumbar pain with sit to stand, but noted that the pain stopped once ambulating. Pain Numeric Pain Scale: 2 Location: Lower Location Body Site: Back Pain Description: Ache Mental Status Patient Orientation: Person, Place, Time, Situation Transfers SCALE: Activities may be completed with or without assistive devices. 6-Xnjrnkkgba-keumtgy completes the activity by him/herself with no assistance from a helper. 5-Set-up or Clean-up Assistance-helper sets up or cleans up; patient completes activity. [place] assists only prior to or following the activity. 4-Supervision or Touching Assistance-helper provides verbal cues and/or touching/steadying and/or contact guard assistance as patient completes activity. Assistance may be provided throughout the activity or intermittently. 3-Partial/Moderate Assistance-helper does LESS THAN HALF the effort. [place] lifts, holds or supports trunk or limbs, but provides less than half the effort. 2-Substantial/Maximal Assistance-helper does MORE THAN HALF the effort. [place] lifts or holds trunk or limbs and provides more than half the effort. 2-Zmkeeuooj-opwchp does ALL the effort. Patient does none of the effort to complete the activity. Or, the assistance of 2 or more helpers is required for the patient to complete the activity. If activity was not attempted, code reason: 7-Patient Refused. 9-Not Applicable-not attempted and the patient did not perform the activity before the current illness, exacerbation or injury. 10-Not Attempted due to Environmental Limitations-(lack of equipment, weather restraints, etc.). 88-Not Attempted due to Medical Conditions or Safety Concerns. Roll Left & Right (QC): 6 Sit to Lying (QC): 6 Lying to Sitting/Side of Bed(Q: 6 Sit to Stand (QC): 6 Weight Bearing Right Lower Extremity: Right Full Weight Bearing Left Lower Extremity: Left Full Weight Bearing back precautions, brace on when out of bed Gait Training Does the Patient Walk?: Yes Distance: 300ft Walk 150 ft (QC): 6 Gait Persons Needed: 1 Gait Assistive Device: FWW Pt able to don/doff the back brace (I). Able to make adjustments to the brace (I). Exercises Supine Ex: LE Protocol Supine Reps: 15 Performed supine (B) LE stretching for knee to chest, piriformis, and hamstring x10ea Assessment Current Status: Good Progress Pt noted hamstring/glute tightness during gait, with good reduction following stretching and exercises. PT Short Term Goals Short Term Goals Time Frame: Jun 18, 2021 Roll Left & Right: 5 Sit to lyin Lying to sitting on side of be: 5 Sit to stand: 4 (SBA) Chair/zdx-sr-xgkgy transfer: 4 (SBA) Walk 10 feet: 4 (SBA) Walk 50 feet with two turns: 4 (SBA) Walk 150 feet: 4 (SBA) PT [facility] Goals Electrophonic Engineer Goals PT [facility] Goals Time Frame: Jul 02, 2021 Roll Left & Right (QC): 6 Sit to Lying (QC): 6 Lying-Sitting on Side/Bed(QC): 6 Sit to Stand (QC): 6 Chair/Moy-nd-Eslka Xfer(QC): 6 Toilet Transfer (QC): 6 Car Transfer (QC): 6 Does the Patient Walk: Yes Walk 10 feet (QC): 6 Walk 50ft with 2 Turns (QC): 6 Walk 150 ft (QC): 6 Walking 10ft on Uneven Surface: 6 1 Step (curb) (QC): 4 4 Steps (QC): 4 12 Steps (QC): 88 Picking up an Object (QC): 6 (using trial mgr) Wheel 50 feet with 2 turns (QC: 9 Wheel 150 feet: 9 PT Plan Treatment/Plan Treatment Plan: Continue Plan of Care Treatment Plan: Bed Mobility, Education, Functional Activity Abimael, Functional Strength, Group Therapy, Gait, Safety, Therapeutic Exercise, Transfers Treatment Duration: Jul 02, 2021 Frequency: At least 5 of 7 days/Wk (IRF) Estimated Hrs Per Day: 1.5 hours per day Patient and/or Family Agrees t: Yes Time/GCodes Time In: 1035 Time Out: 1100 Total Billed Treatment Time: 25 Total Billed Treatment 1, ex 15, gt 10 MARIA E CAO PT Jun 15, 2021 11:00
[2021-06-15] MEDS: lisINopril 20 MG (PRINIVIL) TABLET PO SCH (12:07)
[2021-06-15] MEDS: VENlafaxine XR 75 MG (EFFEXOR XR) CAP PO SCH (17:51)
[2021-06-15 20:15] VITALS: BP 144/67
[2021-06-15] MEDS: AMITRIPTYLINE 10 MG (ELAVIL) TAB PO SCH (21:54)
[2021-06-15] MEDS: TEMAZEPAM 15 MG (RESTORIL) CAP PO SCH (21:55)
[2021-06-16] MEDS: GABAPENTIN 300 MG (NEURONTIN) CAP PO SCH ×2 (03:01→21:39)
[2021-06-16] MEDS: HYDROcodone/APAP 7.5 MG/325 MG (LORTAB, LORCET PLUS) TABLET PO PRN ×4 (03:01→21:50)
--- NOTE | 2021-06-16 06:56 | PM&R Progress Note ---
Subjective HPI/CC On Admission Date Seen by Provider: Jun 16, 2021 Time Seen by Provider: 13:00 Subjective/Events-last exam 06/16/2021: Pain is improving every day Slept well last night Did take as needed meds through the night when she woke up Moving around really well Daughter at the bedside 06/15/2021: Patient doing really well Pain does occur but pain medication does help Blood sugars are reviewed Checked meds labs 06/14/2021: Dramatically improved at night last night Pain much improved Moving around really well Discharge plan for Thursday Bowels are moving Blood sugars are elevated from stress 06/13/2021: Patient doing really well during the day but nighttime is an issue I adjusted pain medication around a bit more in order to get her more comfortable at night Son and daughter at the bedside and answered all questions to the best of my ability Patient moves around really well Diabetic neuropathy is definitely a factor of her nighttime pain so we will increase Neurontin 06/12/2021: Patient settling in well Pain is mostly in the nighttime so we will put in oxycodone 5 mg at 2100 and 0500 as needed Bowels are moving Feels like she is moving around pretty well Checked meds and labs Diabetic foot ulcer on the left foot will need wound care evaluation Eating and drinking pretty well Review of Systems General: Fatigue, Malaise Musculoskeletal: back pain Objective Exam Vital Signs Vital Signs Date Time Temp Pulse Resp B/P (MAP) Pulse Ox O2 Delivery O2 Flow Rate FiO2 06/16/21 20:30 36.4 85 20 150/66 (94) 94 Room Air Capillary Refill : General Appearance: No Apparent Distress, WD/WN, Chronically ill, Obese HEENT: PERRL/EOMI, Normal ENT Inspection, Pharynx Normal Neck: Full Range of Motion, Normal Inspection, Non Tender, Supple, Carotid Bruit Respiratory: Chest Non Tender, Lungs Clear, Normal Breath Sounds, No Accessory Muscle Use, No Respiratory Distress Cardiovascular: Regular Rate, Rhythm, No Edema, No Gallop, No JVD, No Murmur, Normal Peripheral Pulses Gastrointestinal: Normal Bowel Sounds, No Organomegaly, No Pulsatile Mass, Non Tender, Soft Back: Normal Inspection, Decreased Range of Motion, Muscle Spasm, Vertebral Tenderness Extremity: Normal Capillary Refill, Normal Inspection, Normal Range of Motion, Non Tender, No Calf Tenderness, No Pedal Edema Neurologic/Psychiatric: Alert, Oriented x3, No Motor/Sensory Deficits, cloth bleaching range back tender II- XII Norm as Tested, Depressed Affect Skin: Normal Color, Warm/Dry Lymphatic: No Adenopathy Results/Procedures Lab Patient resulted labs reviewed. FIM Transfers Therapy Code Descriptions/Definitions Functional [place] Measure: 0=Not Assessed/NA 4=Minimal Assistance 1=Total Assistance 5=Supervision or Setup 2=Maximal Assistance 6=Modified [place] 3=Moderate Assistance 7=Complete IndependenceSCALE: Activities may be completed with or without assistive devices. 1-Fmfpyphojb-xhxnibz completes the activity by him/herself with no assistance from a helper. 5-Set-up or Clean-up Assistance-helper sets up or cleans up; patient completes activity. [place] assists only prior to or following the activity. 4-Supervision or Touching Assistance-helper provides verbal cues and/or touching/steadying and/or contact guard assistance as patient completes a ctivity. Assistance may be provided throughout the activity or intermittently. 3-Partial/Moderate Assistance-helper does LESS THAN HALF the effort. [place] lifts, holds or supports trunk or limbs, but provides less than half the effort. 2-Substantial/Maximal Assistance-helper does MORE THAN HALF the effort. [place] lifts or holds trunk or limbs and provides more than half the effort. 1-Ivvbmmgry-bmneja does ALL the effort. Patient does none of the effort to complete the activity. Or, the assistance of 2 or more helpers is required for the patient to complete the activity. If activity was not attempted, code reason: 7-Patient Refused. 9-Not Applicable-not attempted and the patient did not perform the activity before the current illness, exacerbation or injury. 10-Not Attempted due to Environmental Limitations-(lack of equipment, weather restraints, etc.). 88-Not Attempted due to Medical Conditions or Safety Concerns. Roll Left to Right (QC): 6 Sit to Lying (QC): 6 Sit to Stand (QC): 6 Chair/Jyr-bk-Lgtha Xfer(QC): 4 Car Transfer (QC): 6 Gait Training Does the Patient Walk?: Yes Distance: 300ft Walk 10 feet (QC): 4 Walk 50 ft with 2 Turns(QC): 4 Walk 150 ft (QC): 6 Walking 10ft/uneven surface-QC: 4 Gait Persons Needed: 1 Gait Assistive Device: FWW Wheelchair Training Does the Pt Use a Wheelchair?: No Wheel 50 ft with 2 turns (QC): 9 Wheel 150 ft (QC): 9 Type of Wheelchair: N/A Stair Training Stair Training: Handrails/: uses walker #of Steps: 1 1 Step (curb) (QC): 4 4 Steps (QC): 88 12 Steps (QC): 88 Stairs: Pattern: Step to Balance Picking up an Object (QC): 4 (using printer apprentice due to back precautions) ADL-Treatment Eating (QC): 6 (per pt reprot) Oral Hygiene (QC): 6 (IND standing at sink) Shower/Bathe Self (QC): 4 Upper Body Dressing (QC): 3 (min A with back brace) Lower Body Dressing (QC): 4 (SBA, pt required min cues to maintain precautions.) On/Off Footwear (QC): 3 (Mod A with donning gripper socks.) Toileting Hygiene (QC): 6 Toilet Transfer (QC): 6 Assessment/Plan Assessment and Plan Assess & Plan/Chief Complaint Assessment: s/p L3-4 LLIF/laminectomy/MIS PSIF on 06/05/[address] Walsh uncomplicated Multiple falls following discharge from [facility] Disruptive sleep cycle postoperatively Chronic Mechanical Lower Back Pain Lumbar spondylosis (most severe at L1-2) HTN GERD Diabetes Mellitus HLD Depression GERD Anxiety Left diabetic foot ulcer Plan: Aggressive rehab Blood sugar management Home meds Supportive care 06/12/2021: Diabetic foot ulcer management Oxycodone at night Maintain bowel regimen 06/13/2021: Supportive care Increase pain medication 06/14/2021: Supportive care Improved pain 06/15/2021: Supportive care 06/16/2021: Supportive care Pain control (1) Lumbar stenosis (2) Diabetes (3) Hypertension CRIS CASTAÑEDA DO Jun 16, 2021 06:56
[2021-06-16] MEDS: inSUlin ASPART (NovoLOG) 1 UNIT/0.01 ML (CHARGE PER UNIT) SC SCH ×4 (07:22→21:38)
[2021-06-16] MEDS: KCL 10 MEQ TAB (MICRO K) PO SCH (07:22)
[2021-06-16 09:00] VITALS: BP 119/59
[2021-06-16] MEDS: EMPAGLIFLOZIN 10 MG TABLET (JARDIANCE) PO SCH (09:08)
[2021-06-16] MEDS: SENNA W/DOCUSATE (SENOKOT S) TABLET PO SCH ×2 (09:08→21:35)
[2021-06-16] MEDS: PANTOPRAZOLE 20 MG TABLET (PROTONIX) PO SCH (09:08)
[2021-06-16] MEDS: GLIMEPIRIDE 4 MG (AMARYL) TAB PO SCH ×2 (09:08→17:27)
[2021-06-16] MEDS: lisINopril 20 MG (PRINIVIL) TABLET PO SCH (09:08)
[2021-06-16] MEDS: DOCUSATE SODIUM 100 MG (COLACE) CAP PO SCH ×2 (09:09→21:35)
[2021-06-16] MEDS: polyethylene glycoL POWDER 17 GM (MIRALAX) PACK PO SCH ×2 (09:09→21:35)
[2021-06-16] MEDS: DICLOFENAC 1% GEL 100 GM (VOLTAREN) TUBE TOP SCH ×4 (09:18→21:46)
[2021-06-16] MEDS: VENlafaxine XR 75 MG (EFFEXOR XR) CAP PO SCH (18:35)
[2021-06-16 20:30] VITALS: BP 150/66
[2021-06-16] MEDS: AMITRIPTYLINE 10 MG (ELAVIL) TAB PO SCH (21:39)
[2021-06-16] MEDS: TEMAZEPAM 15 MG (RESTORIL) CAP PO SCH (21:39)
[2021-06-16] MEDS: CYCLOBENZAPRINE 10 MG (FLEXERIL) TAB PO PRN (21:50)
[2021-06-17] MEDS: HYDROcodone/APAP 7.5 MG/325 MG (LORTAB, LORCET PLUS) TABLET PO PRN ×4 (03:15→17:11)
[2021-06-17] MEDS: GABAPENTIN 300 MG (NEURONTIN) CAP PO SCH ×2 (03:15→21:02)
[2021-06-17 06:03] LABS: BASOPHILS % (AUTO) 0 % (0-10); EOSINOPHILS # (AUTO) 0.1 10^3/uL (0.0-0.3); EOSINOPHILS % (AUTO) 2 % (0-10); HEMATOCRIT 28 % (35-52); HEMOGLOBIN 9.4 g/dL (11.5-16.0); LYMPHOCYTES # (AUTO) 1.7 10^3/uL (1.0-4.0); LYMPHOCYTES % (AUTO) 34 % (12-44); MEAN CORPUSCULAR HEMOGLOBIN 32 pg (25-34); MEAN CORPUSCULAR HGB CONC 34 g/dL (32-36); MEAN CORPUSCULAR VOLUME 95 fL (80-99); MEAN PLATELET VOLUME 9.8 fL (9.0-12.2); MONOCYTES # (AUTO) 0.3 10^3/uL (0.0-1.0); MONOCYTES % (AUTO) 5 % (0-12); NEUTROPHILS # (AUTO) 2.8 10^3/uL (1.8-7.8); NEUTROPHILS % (AUTO) 58 % (42-75); PLATELET COUNT 157 10^3/uL (130-400); WHITE BLOOD COUNT 4.9 10^3/uL (4.3-11.0)
[2021-06-17 06:16] LABS: ALBUMIN 3.2 GM/DL (3.2-4.5)
[2021-06-17 06:17] LABS: POTASSIUM 3.4 MMOL/L (3.6-5.0)
[2021-06-17 06:18] LABS: CALCIUM 8.7 MG/DL (8.5-10.1)
[2021-06-17 06:19] LABS: TOTAL PROTEIN 5.9 GM/DL (6.4-8.2)
[2021-06-17 06:21] LABS: BILIRUBIN,TOTAL 0.6 MG/DL (0.1-1.0)
[2021-06-17 06:23] LABS: CREATININE SERUM 0.77 MG/DL (0.60-1.30)
--- NOTE | 2021-06-17 06:25 | PM&R Progress Note ---
Subjective HPI/CC On Admission Date Seen by Provider: Jun 17, 2021 Time Seen by Provider: 09:00 Subjective/Events-last exam 06/17/2021: Pt is doing well Pain is much improved Overall rested pretty well last night Checked meds and labs 06/16/2021: Pain is improving every day Slept well last night Did take as needed meds through the night when she woke up Moving around really well Daughter at the bedside 06/15/2021: Patient doing really well Pain does occur but pain medication does help Blood sugars are reviewed Checked meds labs 06/14/2021: Dramatically improved at night last night Pain much improved Moving around really well Discharge plan for Thursday Bowels are moving Blood sugars are elevated from stress 06/13/2021: Patient doing really well during the day but nighttime is an issue I adjusted pain medication around a bit more in order to get her more comfortable at night Son and daughter at the bedside and answered all questions to the best of my ability Patient moves around really well Diabetic neuropathy is definitely a factor of her nighttime pain so we will increase Neurontin 06/12/2021: Patient settling in well Pain is mostly in the nighttime so we will put in oxycodone 5 mg at 2100 and 0500 as needed Bowels are moving Feels like she is moving around pretty well Checked meds and labs Diabetic foot ulcer on the left foot will need wound care evaluation Eating and drinking pretty well Review of Systems General: Fatigue, Malaise Musculoskeletal: back pain Objective Exam Vital Signs Vital Signs Date Time Temp Pulse Resp B/P (MAP) Pulse Ox O2 Delivery O2 Flow Rate FiO2 06/17/21 20:55 36.1 91 18 130/69 (89) 91 Room Air Capillary Refill : General Appearance: No Apparent Distress, WD/WN, Chronically ill, Obese HEENT: PERRL/EOMI, Normal ENT Inspection, Pharynx Normal Neck: Full Range of Motion, Normal Inspection, Non Tender, Supple, Carotid Bruit Respiratory: Chest Non Tender, Lungs Clear, Normal Breath Sounds, No Accessory Muscle Use, No Respiratory Distress Cardiovascular: Regular Rate, Rhythm, No Edema, No Gallop, No JVD, No Murmur, Normal Peripheral Pulses Gastrointestinal: Normal Bowel Sounds, No Organomegaly, No Pulsatile Mass, Non Tender, Soft Back: Normal Inspection, Decreased Range of Motion, Muscle Spasm, Vertebral Tenderness Extremity: Normal Capillary Refill, Normal Inspection, Normal Range of Motion, Non Tender, No Calf Tenderness, No Pedal Edema Neurologic/Psychiatric: Alert, Oriented x3, No Motor/Sensory Deficits, coat joiner lockstitch II- XII Norm as Tested, Depressed Affect Skin: Normal Color, Warm/Dry Lymphatic: No Adenopathy Results/Procedures Lab Laboratory Tests 06/17/21 05:32 Patient resulted labs reviewed. FIM Transfers Therapy Code Descriptions/Definitions Functional [place] Measure: 0=Not Assessed/NA 4=Minimal Assistance 1=Total Assistance 5=Supervision or Setup 2=Maximal Assistance 6=Modified [place] 3=Moderate Assistance 7=Complete IndependenceSCALE: Activities may be completed with or without assistive devices. 5-Lmbauwkhog-mbxmzlg completes the activity by him/herself with no assistance from a helper. 5-Set-up or Clean-up Assistance-helper sets up or cleans up; patient completes activity. [place] assists only prior to or following the activity. 4-Supervision or Touching Assistance-helper provides verbal cues and/or touching/steadying and/or contact guard assistance as patient completes activity. Assistance may be provided throughout the activity or intermittently. 3-Partial/Moderate Assistance-helper does LESS THAN HALF the effort. [place] lifts, holds or supports trunk or limbs, but provides less than half the effort. 2-Substantial/Maximal Assistance-helper does MORE THAN HALF the effort. [place] lifts or holds trunk or limbs and provides more than half the effort. 4-Ptbkxodge-jzftmc does ALL the effort. Patient does none of the effort to complete the activity. Or, the assistance of 2 or more helpers is required for the patient to complete the activity. If activity was not attempted, code reason: 7-Patient Refused. 9-Not Applicable-not attempted and the patient did not perform the activity before the current illness, exacerbation or injury. 10-Not Attempted due to Environmental Limitations-(lack of equipment, weather restraints, etc.). 88-Not Attempted due to Medical Conditions or Safety Concerns. Roll Left to Right (QC): 6 Sit to Lying (QC): 6 Sit to Stand (QC): 6 Chair/Iui-bw-Dvgjk Xfer(QC): 4 Car Transfer (QC): 6 Gait Training Does the Patient Walk?: Yes Distance: 300ft Walk 10 feet (QC): 4 Walk 50 ft with 2 Turns(QC): 4 Walk 150 ft (QC): 6 Walking 10ft/uneven surface-QC: 4 Gait Persons Needed: 1 Gait Assistive Device: FWW Wheelchair Training Does the Pt Use a Wheelchair?: No Wheel 50 ft with 2 turns (QC): 9 Wheel 150 ft (QC): 9 Type of Wheelchair: N/A Stair Training Stair Training: Handrails/: uses walker #of Steps: 1 1 Step (curb) (QC): 4 4 Steps (QC): 88 12 Steps (QC): 88 Stairs: Pattern: Step to Balance Picking up an Object (QC): 4 (using dice spotter due to back precautions) ADL-Treatment Eating (QC): 6 (per pt reprot) Oral Hygiene (QC): 6 (IND standing at sink) Shower/Bathe Self (QC): 4 Upper Body Dressing (QC): 3 (min A with back brace) Lower Body Dressing (QC): 4 (SBA, pt required min cues to maintain precautions.) On/Off Footwear (QC): 3 (Mod A with donning gripper socks.) Toileting Hygiene (QC): 6 Toilet Transfer (QC): 6 Assessment/Plan Assessment and Plan Assess & Plan/Chief Complaint Assessment: s/p L3-4 LLIF/laminectomy/MIS PSIF on 06/05/[address] Walsh uncomplicated Multiple falls following discharge from [facility] Disruptive sleep cycle postoperatively Chronic Mechanical Lower Back Pain Lumbar spondylosis (most severe at L1-2) HTN GERD Diabetes Mellitus HLD Depression GERD Anxiety Left diabetic foot ulcer Plan: Aggressive rehab Blood sugar management Home meds Supportive care 06/12/2021: Diabetic foot ulcer management Oxycodone at night Maintain bowel regimen 06/13/2021: Supportive care Increase pain medication 06/14/2021: Supportive care Improved pain 06/15/2021: Supportive care 06/16/2021: Supportive care Pain control 06/17/2021: Pain control (1) Lumbar stenosis (2) Diabetes (3) Hypertension CRIS CASTAÑEDA DO Jun 17, 2021 06:25
[2021-06-17] MEDS: inSUlin ASPART (NovoLOG) 1 UNIT/0.01 ML (CHARGE PER UNIT) SC SCH ×4 (06:59→21:12)
[2021-06-17] MEDS: KCL 10 MEQ TAB (MICRO K) PO SCH ×4 (06:59→17:08)
[2021-06-17 07:47] VITALS: BP 117/56
[2021-06-17] MEDS: GLIMEPIRIDE 4 MG (AMARYL) TAB PO SCH ×2 (07:58→17:08)
[2021-06-17] MEDS: CYCLOBENZAPRINE 10 MG (FLEXERIL) TAB PO PRN ×2 (07:58→17:08)
[2021-06-17] MEDS: lisINopril 20 MG (PRINIVIL) TABLET PO SCH (07:58)
[2021-06-17] MEDS: PANTOPRAZOLE 20 MG TABLET (PROTONIX) PO SCH (07:59)
[2021-06-17] MEDS: EMPAGLIFLOZIN 10 MG TABLET (JARDIANCE) PO SCH (07:59)
[2021-06-17] MEDS: DICLOFENAC 1% GEL 100 GM (VOLTAREN) TUBE TOP SCH ×4 (07:59→21:04)
[2021-06-17] MEDS: DOCUSATE SODIUM 100 MG (COLACE) CAP PO SCH ×2 (08:00→21:12)
[2021-06-17] MEDS: polyethylene glycoL POWDER 17 GM (MIRALAX) PACK PO SCH ×2 (08:00→19:24)
[2021-06-17] MEDS: SENNA W/DOCUSATE (SENOKOT S) TABLET PO SCH ×2 (08:00→21:12)
--- NOTE | 2021-06-17 10:08 | Occupational Ther Daily Note ---
OT Current Status-Daily Note Subjective Pt up in recliner, agreeable to OT tx. Mental Status/Objective Patient Orientation: Person, Place, Situation Attachments: Other-See Comments (back brace) ADL-Treatment Therapy Code Descriptions/Definitions Functional [place] Measure: 0=Not Assessed/NA 4=Minimal Assistance 1=Total Assistance 5=Supervision or Setup 2=Maximal Assistance 6=Modified [place] 3=Moderate Assistance 7=Complete IndependenceSCALE: Activities may be completed with or without assistive devices. 3-Zetgtgnhik-pwpmaqu completes the activity by him/herself with no assistance from a helper. 5-Set-up or Clean-up Assistance-helper sets up or cleans up; patient completes activity. [place] assists only prior to or following the activity. 4-Supervision or Touching Assistance-helper provides verbal cues and/or touching/steadying and/or contact guard assistance as patient completes activity. Assistance may be provided throughout the activity or intermittently. 3-Partial/Moderate Assistance-helper does LESS THAN HALF the effort. [place] lifts, holds or supports trunk or limbs, but provides less than half the effort. 2-Substantial/Maximal Assistance-helper does MORE THAN HALF the effort. [place] lifts or holds trunk or limbs and provides more than half the effort. 8-Lwouesdni-cbvmqh does ALL the effort. Patient does none of the effort to complete the activity. Or, the assistance of 2 or more helpers is required for the patient to complete the activity. If activity was not attempted, code reason: 7-Patient Refused. 9-Not Applicable-not attempted and the patient did not perform the activity before the current illness, exacerbation or injury. 10-Not Attempted due to Environmental Limitations-(lack of equipment, weather restraints, etc.). 88-Not Attempted due to Medical Conditions or Safety Concerns. Eating (QC): 6 Oral Hygiene (QC): 6 Shower/Bathe Self (QC): 4 (SBA) Upper Body Dressing (QC): 3 (Min A with donning back brace) Lower Body Dressing (QC): 4 (SBA, cues for back precautions) On/Off Footwear: 3 (Min A with AE) Toileting Hygiene (QC): 4 (SBA) Toilet Transfer (QC): 4 (SBA) Pt required cues to maintain back precautions with ADLs. Other Treatment Pt seated in recliner, used FWW to transfer into bathroom and onto toilet. Pt co mpleted toileting, then transferred to MS, doffed clothes and completed shower. Pt required cues when drying off to not take any steps without her back brace, as she started to walk around the bathroom without the brace and without shoes/socks. Pt sat in chair right next to the shower, dried off, and donned clothes & brace. Pt required cues throughout LB dressing in order to maintain back precautions. Pt stood at sink to complete grooming tasks, independently. Pt used FWW to perform functional mobility to therapy gym, SBA. OT/PT cotreat due to skill of 2 clinicians required which a cardiac rehabilitation specialist could not perform in order to coordinate UE/LEs, decrease fall risk, focus on higher level balance tasks, and due to pt's limitations in strength and activity tolerance. OT focused on UE placement, and cues for sequencing/safety, PT focused on LE placement, gross overall movement, dynamic balance. Pt used FWW to transfer to [facility] kitchen area in order to perform simulated kitchen task. Pt located 12 murrell bags throughout high/low cabinets, drawers and appliances, then tossed murrell back into basket. Pt required cues to locate all murrell bags, and moderate cues throughout task to maintain back precautions. Pt able to verbalize 2/3 precautions. Pt took seated rest break, then located x10 murrell bags, completing task again. Pt able to utilize baton teacher in the lower cabinets, required cues to keep walker close by, and cues not to twist with activity. Pt took seated rest break and was educated on modifications she can make in the kitchen (placing frequently used items on the counter, using liability claims adjuster weight dishes, keeping trash bag light and not over filling). Post tx, pt seated with PT, all needs met. Education OT Patient Education: Correct positioning, Energy conservation, Exercise program, Modified ADL techniques, Progress toward Goal/Update tx plan, Purpose of tx/functional activities, Reviewed precautions, Rehab process, Safety issues, Transfer techniques Teaching Recipient: Patient Teaching Methods: Discussion Response to Teaching: Verbalize Understanding OT Short Term Goals Short Term Goals Time Frame: Jun 19, 2021 Shower/bathe self: 4 Upper body dressin Lower body dressin Putting on/taking off footwear: 5 OT Senior Care Goals Senior Care Goals Time Frame: Jun 28, 2021 Eating (QC): 6 Oral Hygiene (QC): 6 Toileting Hygiene (QC): 6 Shower/Bathe Self (QC): 6 Upper Body Dressing (QC): 6 Lower Body Dressing (QC): 6 On/Off Footwear (QC): 6 1=Demonstrate adherence to instructed precautions during ADL tasks. 2=Patient will verbalize/demonstrate understanding of assistive devices/modifications for ADL. 3=Patient will improve strength/tolerance for activity to enable patient to perform ADL's. OT Education/Plan Problem List/Assessment Assessment: Decreased Activ Tolerance, Decreased Safety Aware, Decreased UE Strength, Impaired Funct Balance, Impaired I ADL's, Impaired Self-Care Skills Discharge Recommendations Plan/Recommendations: Continue POC Treatment Plan/Plan of Care Patient would benefit from OT for education, treatment and training to promote independence in ADL's, mobility, safety and/or upper extremity function for ADL's. Plan of Care: ADL Retraining, Functional Mobility, Group Exercise/Act as Ind, UE Funct Exercise/Act Treatment Duration: Jun 28, 2021 Frequency: At least 5 of 7 days/Wk (IRF) Estimated Hrs Per Day: 1.5 hours per day Agreement: Yes Rehab Potential: Good Time/GCodes Start Time: 08:30 Stop Time: 10:00 Total Time Billed (hr/min): 90 Billed Treatment Time cotreat x30, OT x60' 1, ADL 4 (60'), FA 2 (30') AN ARMENDARIZ OT Jun 17, 2021 10:08
--- NOTE | 2021-06-17 10:32 | Physical Therapy Daily Note ---
PT Daily Note-Current Subjective Pt working with OT upon arrival. Pt agrees to partial PT/OT Pain Location: No Pain Reported Mental Status Patient Orientation: Person, Confused, Place Attachments: Other-See Comments (TLSO Back Brace) Transfers SCALE: Activities may be completed with or without assistive devices. 7-Ozfdisanem-nejichx completes the activity by him/herself with no assistance from a helper. 5-Set-up or Clean-up Assistance-helper sets up or cleans up; patient completes activity. [place] assists only prior to or following the activity. 4-Supervision or Touching Assistance-helper provides verbal cues and/or touching/steadying and/or contact guard assistance as patient completes activity. Assistance may be provided throughout the activity or intermittently. 3-Partial/Moderate Assistance-helper does LESS THAN HALF the effort. [place] lifts, holds or supports trunk or limbs, but provides less than half the effort. 2-Substantial/Maximal Assistance-helper does MORE THAN HALF the effort. [place] lifts or holds trunk or limbs and provides more than half the effort. 5-Hptlekwnb-bkogsg does ALL the effort. Patient does none of the effort to complete the activity. Or, the assistance of 2 or more helpers is required for the patient to complete the activity. If activity was not attempted, code reason: 7-Patient Refused. 9-Not Applicable-not attempted and the patient did not perform the activity before the current illness, exacerbation or injury. 10-Not Attempted due to Environmental Limitations-(lack of equipment, weather restraints, etc.). 88-Not Attempted due to Medical Conditions or Safety Concerns. Sit to Stand (QC): 5 Weight Bearing Right Lower Extremity: Right Full Weight Bearing Left Lower Extremity: Left Full Weight Bearing back precautions, brace on when out of bed Gait Training Does the Patient Walk?: Yes Distance: 500', 100' Walk 10 feet (QC): 5 Walk 50 ft with 2 Turns(QC): 5 Walk 150 ft (QC): 5 Gait Persons Needed: 1 Gait Assistive Device: FWW Exercises NuStep Minutes: 10 NuStep Workload: 4 Treatments OT/PT cotreat due to skill of 2 clinicians required which a rehab physician could not perform in order to coordinate UE/LEs, decrease fall risk, focus on higher level balance tasks, and due to pt's limitations in strength and activity tolerance. OT focused on UE placement, and cues for sequencing/safety, PT focused on LE placement, gross overall movement, dynamic balance. Pt used FWW to transfer to [facility] kitchen area in order to perform simulated kitchen task. Pt located 12 murrell bags throughout high/low cabinets, drawers and appliances, then tossed murrell back into basket. Pt required cues to locate all murrell bags, and moderate cues throughout task to maintain back precautions. Pt able to verbalize 2/3 precautions. Pt took seated rest break, then located x10 murrell bags, completing task again. Pt able to utilize ball fringe machine operator in the lower cabinets, required cues to keep walker close by, and cues not to twist with activity. Pt took seated rest break and was educated on modifications she can make in the kitchen (placing frequently used items on the counter, using time study observer weight dishes, keeping trash bag light and not over filling). OT departs at this time. Pt amb. to Therapy Gym, using NuStep for 10m at WL 4. After short RB, pt amb. in hallway and practices proper sit to stand technique. Pt returns to room to rest at end of tx. All needs met, call light next to pt. Assessment Current Status: Good Progress Pt needs VC for safety at times as well as back precautions and use of ball fringe machine operator. PT Short Term Goals Short Term Goals Time Frame: Jun 18, 2021 Roll Left & Right: 5 Sit to lyin Lying to sitting on side of be: 5 Sit to stand: 4 (SBA) Chair/kat-fy-zdavn transfer: 4 (SBA) Walk 10 feet: 4 (SBA) Walk 50 feet with two turns: 4 (SBA) Walk 150 feet: 4 (SBA) PT Fci Goals Fci Goals PT Dry Plasterer Helper Goals Time Frame: Jul 02, 2021 Roll Left & Right (QC): 6 Sit to Lying (QC): 6 Lying-Sitting on Side/Bed(QC): 6 Sit to Stand (QC): 6 Chair/Cpv-fj-Xyvim Xfer(QC): 6 Toilet Transfer (QC): 6 Car Transfer (QC): 6 Does the Patient Walk: Yes Walk 10 feet (QC): 6 Walk 50ft with 2 Turns (QC): 6 Walk 150 ft (QC): 6 Walking 10ft on Uneven Surface: 6 1 Step (curb) (QC): 4 4 Steps (QC): 4 12 Steps (QC): 88 Picking up an Object (QC): 6 (using ball fringe machine operator) Wheel 50 feet with 2 turns (QC: 9 Wheel 150 feet: 9 PT Plan Problem List Problem List: Activity Tolerance, Safety Treatment/Plan Treatment Plan: Continue Plan of Care Treatment Plan: Bed Mobility, Education, Functional Activity [place]im[place], Functional Strength, Group Therapy, Gait, Safety, Therapeutic Exercise, Transfers Treatment Duration: Jul 02, 2021 Frequency: At least 5 of 7 days/Wk (IRF) Estimated Hrs Per Day: 1.5 hours per day Patient and/or Family Agrees t: Yes Safety Risks/Education Patient Education: Transfer Techniques, Correct Positioning, Safety Issues Teaching Recipient: Patient, Family Teaching Methods: Demonstration, Discussion Response to Teaching: Verbalize Understanding, Return Demonstration Time/GCodes Time In: 930 Time Out: 1030 Total Billed Treatment Time: 60 Total Billed Treatment 1, FA x2 (30m), EX (15m) & GT (15m) Co-treat w/OT for 30m (930-1000) TOM FINN EXECUTIVE COACH Jun 17, 2021 10:32
--- NOTE | 2021-06-17 14:44 | Physical Therapy Daily Note ---
PT Daily Note-Current Subjective Pt standing in room putting in back brace with Family help. Pt agrees to PT. Pain Location: No Pain Reported Mental Status Patient Orientation: Person, Confused, Place Attachments: Other-See Comments (TLSO Back Brace) Transfers SCALE: Activities may be completed with or without assistive devices. 4-Xwcegxoany-ptzbpnv completes the activity by him/herself with no assistance from a helper. 5-Set-up or Clean-up Assistance-helper sets up or cleans up; patient completes activity. [place] assists only prior to or following the activity. 4-Supervision or Touching Assistance-helper provides verbal cues and/or touching/steadying and/or contact guard assistance as patient completes activ ity. Assistance may be provided throughout the activity or intermittently. 3-Partial/Moderate Assistance-helper does LESS THAN HALF the effort. [place] lifts, holds or supports trunk or limbs, but provides less than half the effort. 2-Substantial/Maximal Assistance-helper does MORE THAN HALF the effort. [place] lifts or holds trunk or limbs and provides more than half the effort. 8-Avlramife-npfyje does ALL the effort. Patient does none of the effort to complete the activity. Or, the assistance of 2 or more helpers is required for the patient to complete the activity. If activity was not attempted, code reason: 7-Patient Refused. 9-Not Applicable-not attempted and the patient did not perform the activity before the current illness, exacerbation or injury. 10-Not Attempted due to Environmental Limitations-(lack of equipment, weather restraints, etc.). 88-Not Attempted due to Medical Conditions or Safety Concerns. Sit to Stand (QC): 5 Weight Bearing Right Lower Extremity: Right Full Weight Bearing Left Lower Extremity: Left Full Weight Bearing back precautions, brace on when out of bed Gait Training Does the Patient Walk?: Yes Distance: 250' x2, 100' Walk 10 feet (QC): 5 Walk 50 ft with 2 Turns(QC): 5 Walk 150 ft (QC): 5 Gait Persons Needed: 1 Gait Assistive Device: FWW Exercises Seated Therapy Exercises: Ankle pumps, Long arc quads, Hip flexion, Glut set Seated Reps: 15 Treatments Pt amb. in hallway, taking RB in Therapy Gym. Pt completes Seated Ex in chair. Pt is issued and reviews written HEP for Supine & Seated Ex. Pt amb. in hallway and returns to room to rest at EOB. All needs met, call light in hand. Assessment Current Status: Good Progress Pt eran. tx well. PT Short Term Goals Short Term Goals Time Frame: Jun 18, 2021 Roll Left & Right: 5 Sit to lyin Lying to sitting on side of be: 5 Sit to stand: 4 (SBA) Chair/mky-vw-vuhcr transfer: 4 (SBA) Walk 10 feet: 4 (SBA) Walk 50 feet with two turns: 4 (SBA) Walk 150 feet: 4 (SBA) PT Microscopist Goals Nursing Home Goals PT Nursing Home Goals Time Frame: Jul 02, 2021 Roll Left & Right (QC): 6 Sit to Lying (QC): 6 Lying-Sitting on Side/Bed(QC): 6 Sit to Stand (QC): 6 Chair/Hqj-jc-Dzffi Xfer(QC): 6 Toilet Transfer (QC): 6 Car Transfer (QC): 6 Does the Patient Walk: Yes Walk 10 feet (QC): 6 Walk 50ft with 2 Turns (QC): 6 Walk 150 ft (QC): 6 Walking 10ft on Uneven Surface: 6 1 Step (curb) (QC): 4 4 Steps (QC): 4 12 Steps (QC): 88 Picking up an Object (QC): 6 (using unit secretary) Wheel 50 feet with 2 turns (QC: 9 Wheel 150 feet: 9 PT Plan Problem List Problem List: Activity Tolerance, Safety Treatment/Plan Treatment Plan: Continue Plan of Care Treatment Plan: Bed Mobility, Education, Functional Activity Abimael, Functional Strength, Group Therapy, Gait, Safety, Therapeutic Exercise, Transfers Treatment Duration: Jul 02, 2021 Frequency: At least 5 of 7 days/Wk (IRF) Estimated Hrs Per Day: 1.5 hours per day Patient and/or Family Agrees t: Yes Safety Risks/Education Patient Education: Transfer Techniques, Issued Written HEP, Correct Positioning, Safety Issues Teaching Recipient: Patient, Family Teaching Methods: Demonstration, Discussion Response to Teaching: Verbalize Understanding, Return Demonstration Time/GCodes Time In: 1400 Time Out: 1430 Total Billed Treatment Time: 30 Total Billed Treatment 1, EX (20m) & GT (10m) TOM FINN MANAGER LOCAL Jun 17, 2021 14:44
[2021-06-17] MEDS: VENlafaxine XR 75 MG (EFFEXOR XR) CAP PO SCH (17:08)
[2021-06-17 20:55] VITALS: BP 130/69
[2021-06-17] MEDS: AMITRIPTYLINE 10 MG (ELAVIL) TAB PO SCH (21:02)
[2021-06-17] MEDS: TEMAZEPAM 15 MG (RESTORIL) CAP PO SCH (21:02)
[2021-06-18] MEDS: CYCLOBENZAPRINE 10 MG (FLEXERIL) TAB PO PRN ×2 (00:38→16:25)
[2021-06-18] MEDS: HYDROcodone/APAP 7.5 MG/325 MG (LORTAB, LORCET PLUS) TABLET PO PRN ×4 (00:39→16:26)
[2021-06-18] MEDS: GABAPENTIN 300 MG (NEURONTIN) CAP PO SCH ×2 (03:31→20:50)
[2021-06-18] MEDS: inSUlin ASPART (NovoLOG) 1 UNIT/0.01 ML (CHARGE PER UNIT) SC SCH ×4 (05:48→20:51)
--- NOTE | 2021-06-18 05:55 | PM&R Progress Note ---
Subjective HPI/CC On Admission Date Seen by Provider: Jun 18, 2021 Time Seen by Provider: 09:00 Subjective/Events-last exam 06/18/2021: Pt is ready for home discharge tomorrow Had a really good night Will initiate exact pain medication regimen that she had two nights ago that has really helped her She will need home health 06/17/2021: Pt is doing well Pain is much improved Overall rested pretty well last night Checked meds and labs 06/16/2021: Pain is improving every day Slept well last night Did take as needed meds through the night when she woke up Moving around really well Daughter at the bedside 06/15/2021: Patient doing really well Pain does occur but pain medication does help Blood sugars are reviewed Checked meds labs 06/14/2021: Dramatically improved at night last night Pain much improved Moving around really well Discharge plan for Thursday Bowels are moving Blood sugars are elevated from stress 06/13/2021: Patient doing really well during the day but nighttime is an issue I adjusted pain medication around a bit more in order to get her more comfortable at night Son and daughter at the bedside and answered all questions to the best of my ability Patient moves around really well Diabetic neuropathy is definitely a factor of her nighttime pain so we will increase Neurontin 06/12/2021: Patient settling in well Pain is mostly in the nighttime so we will put in oxycodone 5 mg at 2100 and 0500 as needed Bowels are moving Feels like she is moving around pretty well Checked meds and labs Diabetic foot ulcer on the left foot will need wound care evaluation Eating and drinking pretty well Review of Systems General: Fatigue, Malaise Neurological: Weakness, Incoordination Objective Exam Vital Signs Vital Signs Date Time Temp Pulse Resp B/P (MAP) Pulse Ox O2 Delivery O2 Flow Rate FiO2 06/18/21 21:00 Room Air 06/18/21 19:46 36.5 93 20 158/66 (96) 95 Capillary Refill : General Appearance: No Apparent Distress, WD/WN, Chronically ill, Obese HEENT: PERRL/EOMI, Normal ENT Inspection, Pharynx Normal Neck: Full Range of Motion, Normal Inspection, Non Tender, Supple, Carotid Bruit Respiratory: Chest Non Tender, Lungs Clear, Normal Breath Sounds, No Accessory Muscle Use, No Respiratory Distress Cardiovascular: Regular Rate, Rhythm, No Edema, No Gallop, No JVD, No Murmur, Normal Peripheral Pulses Gastrointestinal: Normal Bowel Sounds, No Organomegaly, No Pulsatile Mass, Non Tender, Soft Back: Normal Inspection, Decreased Range of Motion, Muscle Spasm, Vertebral Tenderness Extremity: Normal Capillary Refill, Normal Inspection, Normal Range of Motion, Non Tender, No Calf Tenderness, No Pedal Edema Neurologic/Psychiatric: Alert, Oriented x3, No Motor/Sensory Deficits, dial equipment engineer II- XII Norm as Tested, Depressed Affect Skin: Normal Color, Warm/Dry Lymphatic: No Adenopathy Results/Procedures Lab Patient resulted labs reviewed. FIM Transfers Therapy Code Descriptions/Definitions Functional Hand Measure: 0=Not Assessed/NA 4=Minimal Assistance 1=Total Assistance 5=Supervision or Setup 2=Maximal Assistance 6=Modified Hand 3=Moderate Assistance 7=Complete IndependenceSCALE: Activities may be completed with or without assistive devices. 5-Asvvzciswp-dapkmwr completes the activity by him/herself with no assistance from a helper. 5-Set-up or Clean-up Assistance-helper sets up or cleans up; patient completes activity. [place] assists only prior to or following the activity. 4-Supervision or Touching Assistance-helper provides verbal cues and/or touching/steadying and/or contact guard assistance as patient completes activity. Assistance may be provided throughout the activity or intermittently. 3-Partial/Moderate Assistance-helper does LESS THAN HALF the effort. [place] lif ts, holds or supports trunk or limbs, but provides less than half the effort. 2-Substantial/Maximal Assistance-helper does MORE THAN HALF the effort. [place] lifts or holds trunk or limbs and provides more than half the effort. 6-Dvlqiaovu-rtruyc does ALL the effort. Patient does none of the effort to complete the activity. Or, the assistance of 2 or more helpers is required for the patient to complete the activity. If activity was not attempted, code reason: 7-Patient Refused. 9-Not Applicable-not attempted and the patient did not perform the activity before the current illness, exacerbation or injury. 10-Not Attempted due to Environmental Limitations-(lack of equipment, weather restraints, etc.). 88-Not Attempted due to Medical Conditions or Safety Concerns. Roll Left to Right (QC): 6 Sit to Lying (QC): 6 Sit to Stand (QC): 5 Chair/Yzy-ej-Ntkiw Xfer(QC): 4 Car Transfer (QC): 6 Gait Training Does the Patient Walk?: Yes Distance: 250' x2, 100' Walk 10 feet (QC): 5 Walk 50 ft with 2 Turns(QC): 5 Walk 150 ft (QC): 5 Walking 10ft/uneven surface-QC: 4 Gait Persons Needed: 1 Gait Assistive Device: FWW Wheelchair Training Does the Pt Use a Wheelchair?: No Wheel 50 ft with 2 turns (QC): 9 Wheel 150 ft (QC): 9 Type of Wheelchair: N/A Stair Training Stair Training: Handrails/: uses walker #of Steps: 1 1 Step (curb) (QC): 4 4 Steps (QC): 88 12 Steps (QC): 88 Stairs: Pattern: Step to Balance Picking up an Object (QC): 4 (using fruit or nut farmer due to back precautions) ADL-Treatment Eating (QC): 6 Oral Hygiene (QC): 6 Shower/Bathe Self (QC): 4 (SBA) Upper Body Dressing (QC): 3 (Min A with donning back brace) Lower Body Dressing (QC): 4 (SBA, cues for back precautions) On/Off Footwear (QC): 3 (Min A with AE) Toileting Hygiene (QC): 4 (SBA) Toilet Transfer (QC): 4 (SBA) Assessment/Plan Assessment and Plan Assess & Plan/Chief Complaint Assessment: s/p L3-4 LLIF/laminectomy/MIS PSIF on 06/05/[address] Walsh uncomplicated Multiple falls following discharge from [facility] Disruptive sleep cycle postoperatively Chronic Mechanical Lower Back Pain Lumbar spondylosis (most severe at L1-2) HTN GERD Diabetes Mellitus HLD Depression GERD Anxiety Left diabetic foot ulcer Plan: Aggressive rehab Blood sugar management Home meds Supportive care 06/12/2021: Diabetic foot ulcer management Oxycodone at night Maintain bowel regimen 06/13/2021: Supportive care Increase pain medication 06/14/2021: Supportive care Improved pain 06/15/2021: Supportive care 06/16/2021: Supportive care Pain control 06/17/2021: Pain control 06/18/2021: Monitor pain DC tomorrow (1) Lumbar stenosis (2) Diabetes (3) Hypertension CRIS CASTAÑEDA DO Jun 18, 2021 05:55
[2021-06-18 07:57] VITALS: BP 121/56
[2021-06-18] MEDS: lisINopril 20 MG (PRINIVIL) TABLET PO SCH (08:22)
[2021-06-18] MEDS: PANTOPRAZOLE 20 MG TABLET (PROTONIX) PO SCH (08:22)
[2021-06-18] MEDS: SENNA W/DOCUSATE (SENOKOT S) TABLET PO SCH ×2 (08:22→20:51)
[2021-06-18] MEDS: KCL 10 MEQ TAB (MICRO K) PO SCH ×3 (08:23→17:52)
[2021-06-18] MEDS: DOCUSATE SODIUM 100 MG (COLACE) CAP PO SCH ×2 (08:23→20:51)
[2021-06-18] MEDS: GLIMEPIRIDE 4 MG (AMARYL) TAB PO SCH ×2 (08:23→17:52)
[2021-06-18] MEDS: polyethylene glycoL POWDER 17 GM (MIRALAX) PACK PO SCH ×2 (08:23→20:51)
[2021-06-18] MEDS: EMPAGLIFLOZIN 10 MG TABLET (JARDIANCE) PO SCH (08:23)
[2021-06-18] MEDS: DICLOFENAC 1% GEL 100 GM (VOLTAREN) TUBE TOP SCH ×4 (08:24→20:52)
--- NOTE | 2021-06-18 08:53 | Occupational Ther Daily Note ---
OT Current Status-Daily Note Subjective Pt in bed, agreeable to OT Tx. Mental Status/Objective Patient Orientation: Person, Place, Situation Attachments: Other-See Comments (back brace) ADL-Treatment Therapy Code Descriptions/Definitions Functional [place] Measure: 0=Not Assessed/NA 4=Minimal Assistance 1=Total Assistance 5=Supervision or Setup 2=Maximal Assistance 6=Modified [place] 3=Moderate Assistance 7=Complete IndependenceSCALE: Activities may be completed with or without assistive devices. 3-Aubzyqnxld-tilmlja completes the activity by him/herself with no assistance from a helper. 5-Set-up or Clean-up Assistance-helper sets up or cleans up; patient completes activity. [place] assists only prior to or following the activity. 4-Supervision or Touching Assistance-helper provides verbal cues and/or touching/steadying and/or contact guard assistance as patient completes activity. Assistance may be provided throughout the activity or intermittently. 3-Partial/Moderate Assistance-helper does LESS THAN HALF the effort. [place] lifts, holds or supports trunk or limbs, but provides less than half the effort. 2-Substantial/Maximal Assistance-helper does MORE THAN HALF the effort. [place] lifts or holds trunk or limbs and provides more than half the effort. 6-Zwvnozmwy-csqsco does ALL the effort. Patient does none of the effort to complete the activity. Or, the assistance of 2 or more helpers is required for the patient to complete the activity. If activity was not attempted, code reason: 7-Patient Refused. 9-Not Applicable-not attempted and the patient did not perform the activity before the current illness, exacerbation or injury. 10-Not Attempted due to Environmental Limitations-(lack of equipment, weather restraints, etc.). 88-Not Attempted due to Medical Conditions or Safety Concerns. Eating (QC): 6 Oral Hygiene (QC): 6 Shower/Bathe Self (QC): 5 Upper Body Dressing (QC): 4 (cues for back brace) Lower Body Dressing (QC): 6 On/Off Footwear: 5 Toileting Hygiene (QC): 6 Toilet Transfer (QC): 6 Other Treatment Pt in bed, transferred supine to sit EOB independently. Back brace donned, then pt used FWW into bathroom and onto toilet. Pt completed toileting, then transferred to [place] to doff clothes and complete shower. Pt required cues after the shower to don back brace prior to taking any steps, as she attempted to transfer out of the shower without the brace on. Pt sat back on SC, donned bra and back brace, then transferred to chair right outside shower to complete the rest of dressing. Pt required cues for correctly donning back brace. Pt stood at sink to complete oral care, then used FWW to perform functional mobility to therapy gym. OT tx with focus on increasin BUE strength and activity tolerance. Pt placed x100 pegs from pegboard, alternating hands, 1lb wrist weights bilaterally, 1 verbal cue to remember to alternate hands. She then completed x100 piece puzzle, 1lb wrist weights bilaterally. Pt used FWW to return to her room, transferring to EOB. Post tx, pt up EOB, call light in reach and all needs met, nurse present. Education OT Patient Education: Correct positioning, Energy conservation, Exercise program, Modified ADL techniques, Progress toward Goal/Update tx plan, Purpose of tx/functional activities, Rehab process Teaching Recipient: Patient Teaching Methods: Discussion Response to Teaching: Verbalize Understanding OT Short Term Goals Short Term Goals Time Frame: Jun 19, 2021 Shower/bathe self: 4 Upper body dressin Lower body dressin Putting on/taking off footwear: 5 OT Bid Writer Goals Bid Writer Goals Time Frame: Jun 28, 2021 Eating (QC): 6 (met) Oral Hygiene (QC): 6 (met) Toileting Hygiene (QC): 6 (met) Shower/Bathe Self (QC): 6 (not met) Upper Body Dressing (QC): 6 (not met) Lower Body Dressing (QC): 6 (met) On/Off Footwear (QC): 6 (not met) 1=Demonstrate adherence to instructed precautions during ADL tasks. 2=Patient will verbalize/demonstrate understanding of assistive devices/modifications for ADL. 3=Patient will improve strength/tolerance for activity to enable patient to perform ADL's. OT Education/Plan Problem List/Assessment Assessment: Decreased Activ Tolerance, Decreased UE Strength, Impaired I ADL's Discharge Recommendations Plan/Recommendations: Continue POC Treatment Plan/Plan of Care Patient would benefit from OT for education, treatment and training to promote independence in ADL's, mobility, safety and/or upper extremity function for ADL's. Plan of Care: ADL Retraining, Functional Mobility, Group Exercise/Act as Ind, UE Funct Exercise/Act Treatment Duration: Jun 28, 2021 Frequency: At least 5 of 7 days/Wk (IRF) Estimated Hrs Per Day: 1.5 hours per day Agreement: Yes Rehab Potential: Good Time/GCodes Start Time: 08:00 Stop Time: 09:30 Total Time Billed (hr/min): 90 Billed Treatment Time 1, ADL 3 (45'), FA 3 (45') AN ARMENDARIZ OT Jun 18, 2021 08:53
--- NOTE | 2021-06-18 10:59 | Physical Therapy Daily Note ---
PT Daily Note-Current Subjective Pt sitting in room at EOB upon arrival. Pt agrees to PT. Pain Location: No Pain Reported Mental Status Patient Orientation: Person, Place, Situation Attachments: Other-See Comments (TLSO Back Brace) Transfers SCALE: Activities may be completed with or without assistive devices. 9-Avdpbquktv-estiinh completes the activity by him/herself with no assistance from a helper. 5-Set-up or Clean-up Assistance-helper sets up or cleans up; patient completes activity. [place] assists only prior to or following the activity. 4-Supervision or Touching Assistance-helper provides verbal cues and/or touching/steadying and/or contact guard assistance as patient completes activity. Assistance may be provided throughout the activity or intermittently. 3-Partial/Moderate Assistance-helper does LESS THAN HALF the effort. [place] lifts, holds or supports trunk or limbs, but provides less than half the effort. 2-Substantial/Maximal Assistance-helper does MORE THAN HALF the effort. [place] lifts or holds trunk or limbs and provides more than half the effort. 2-Mykkduwyx-sutqji does ALL the effort. Patient does none of the effort to complete the activity. Or, the assistance of 2 or more helpers is required for the patient to complete the activity. If activity was not attempted, code reason: 7-Patient Refused. 9-Not Applicable-not attempted and the patient did not perform the activity before the current illness, exacerbation or injury. 10-Not Attempted due to Environmental Limitations-(lack of equipment, weather restraints, etc.). 88-Not Attempted due to Medical Conditions or Safety Concerns. Roll Left & Right (QC): 6 Sit to Lying (QC): 6 Lying to Sitting/Side of Bed(Q: 6 Sit to Stand (QC): 6 Chair/Fte-is-Vszdz Xfer(QC): 6 Toilet Transfer (QC): 6 Car Transfer (QC): 5 Weight Bearing Right Lower Extremity: Right Full Weight Bearing Left Lower Extremity: Left Full Weight Bearing back precautions, brace on when out of bed Gait Training Does the Patient Walk?: Yes Distance: 100' x4 Walk 10 feet (QC): 6 Walk 50 ft with 2 Turns(QC): 6 Walk 150 ft (QC): 6 Walking 10ft/uneven surface-QC: 6 Gait Persons Needed: 0 Gait Assistive Device: FWW Wheelchair Training Does the Pt Use a Wheelchair?: No Stair Training Stair Training: Handrails/: 2 handrails #of Steps: 8 1 Step (curb) (QC): 5 4 Steps (QC): 5 12 Steps (QC): 7 Stairs: Pattern: Reciprocal Balance Picking up an Object (QC): 5 Exercises NuStep Minutes: 15 NuStep Workload: 5 Treatments Pt uses NuStep for 15m at WL 5. Pt completes QC scoring items listed above. Pt uses BR and returns to EOB to rest. All needs met, call light in hand. Assessment Current Status: Good Progress VC for safety at times, improved activity tolerance and mobility. PT Short Term Goals Short Term Goals Time Frame: Jun 18, 2021 Roll Left & Right: 5 Sit to lyin Lying to sitting on side of be: 5 Sit to stand: 4 (SBA) Chair/trt-gz-caaym transfer: 4 (SBA) Walk 10 feet: 4 (SBA) Walk 50 feet with two turns: 4 (SBA) Walk 150 feet: 4 (SBA) PT Half-Way Goals Log Roper Goals PT Half-Way Goals Time Frame: Jul 02, 2021 Roll Left & Right (QC): 6 Sit to Lying (QC): 6 Lying-Sitting on Side/Bed(QC): 6 Sit to Stand (QC): 6 Chair/Lom-zh-Mevvz Xfer(QC): 6 Toilet Transfer (QC): 6 Car Transfer (QC): 6 Does the Patient Walk: Yes Walk 10 feet (QC): 6 Walk 50ft with 2 Turns (QC): 6 Walk 150 ft (QC): 6 Walking 10ft on Uneven Surface: 6 1 Step (curb) (QC): 4 4 Steps (QC): 4 12 Steps (QC): 88 Picking up an Object (QC): 6 (using alteration hand) Wheel 50 feet with 2 turns (QC: 9 Wheel 150 feet: 9 PT Plan Problem List Problem List: Safety Treatment/Plan Treatment Plan: Continue Plan of Care Treatment Plan: Bed Mobility, Education, Functional Activity Abimael, Functional Strength, Group Therapy, Gait, Safety, Therapeutic Exercise, Transfers Treatment Duration: Jul 02, 2021 Frequency: At least 5 of 7 days/Wk (IRF) Estimated Hrs Per Day: 1.5 hours per day Patient and/or Family Agrees t: Yes Safety Risks/Education Patient Education: Reviewed Don/Doff Brace, Safety Issues Teaching Recipient: Patient Teaching Methods: Discussion Response to Teaching: Verbalize Understanding Time/GCodes Time In: 1000 Time Out: 1100 Total Billed Treatment Time: 60 Total Billed Treatment 1, EX x2 (30m) & GT (10m) & FA (20m) TOM FINN SUPERVISOR SEWING ROOM Jun 18, 2021 10:59
--- NOTE | 2021-06-18 14:19 | Physical Therapy Daily Note ---
PT Daily Note-Current Subjective Upon arrival Pt was sitting on the EOB, with son in the room. Pt was ready for PT. Pain Comment: Pt reports discomfort and soreness in lower back. Mental Status Patient Orientation: Normal For Age Transfers SCALE: Activities may be completed with or without assistive devices. 0-Qaoaqpzzkj-smuvvoz completes the activity by him/herself with no assistance from a helper. 5-Set-up or Clean-up Assistance-helper sets up or cleans up; patient completes activity. [place] assists only prior to or following the activity. 4-Supervision or Touching Assistance-helper provides verbal cues and/or touching/steadying and/or contact guard assistance as patient completes activity. Assistance may be provided throughout the activity or intermittently. 3-Partial/Moderate Assistance-helper does LESS THAN HALF the effort. [place] lifts, holds or supports trunk or limbs, but provides less than half the effort. 2-Substantial/Maximal Assistance-helper does MORE THAN HALF the effort. [place] lifts or holds trunk or limbs and provides more than half the effort. 0-Ndaruumoi-tsabfx does ALL the effort. Patient does none of the effort to complete the activity. Or, the assistance of 2 or more helpers is required for the patient to complete the activity. If activity was not attempted, code reason: 7-Patient Refused. 9-Not Applicable-not attempted and the patient did not perform the activity before the current illness, exacerbation or injury. 10-Not Attempted due to Environmental Limitations-(lack of equipment, weather restraints, etc.). 88-Not Attempted due to Medical Conditions or Safety Concerns. Weight Bearing Right Lower Extremity: Right Full Weight Bearing Left Lower Extremity: Left Full Weight Bearing back precautions, brace on when out of bed Gait Training Does the Patient Walk?: Yes Distance: 270' Walk 10 feet (QC): 6 Walk 50 ft with 2 Turns(QC): 6 Walk 150 ft (QC): 6 Gait Assistive Device: FWW Pt ambulated with correct posture and form. Exercises Standing: Hip Abduction, 3 way Ex=Flex, Abd, Ext, Marching, Mini squats Standing Reps: 20 All standing ex completed 20x. NuStep Minutes: 5 Assessment Current Status: Good Progress Pt completed all mentioned EX. Pt executed good posture with all EX. PT Short Term Goals Short Term Goals Time Frame: Jun 18, 2021 Roll Left & Right: 5 Sit to lyin Lying to sitting on side of be: 5 Sit to stand: 4 (SBA) Chair/sri-dq-jmkny transfer: 4 (SBA) Walk 10 feet: 4 (SBA) Walk 50 feet with two turns: 4 (SBA) Walk 150 feet: 4 (SBA) PT Roll Edge Machine Operator Goals Group Home Goals PT Roll Edge Machine Operator Goals Time Frame: Jul 02, 2021 Roll Left & Right (QC): 6 Sit to Lying (QC): 6 Lying-Sitting on Side/Bed(QC): 6 Sit to Stand (QC): 6 Chair/Rxh-dg-Iniyd Xfer(QC): 6 Toilet Transfer (QC): 6 Car Transfer (QC): 6 Does the Patient Walk: Yes Walk 10 feet (QC): 6 Walk 50ft with 2 Turns (QC): 6 Walk 150 ft (QC): 6 Walking 10ft on Uneven Surface: 6 1 Step (curb) (QC): 4 4 Steps (QC): 4 12 Steps (QC): 88 Picking up an Object (QC): 6 (using deposition reporter) Wheel 50 feet with 2 turns (QC: 9 Wheel 150 feet: 9 PT Plan Problem List Problem List: Activity Tolerance Treatment/Plan Treatment Plan: Continue Plan of Care Treatment Plan: Bed Mobility, Education, Functional Activity Abimael, Functional Strength, Group Therapy, Gait, Safety, Therapeutic Exercise, Transfers Treatment Duration: Jul 02, 2021 Frequency: At least 5 of 7 days/Wk (IRF) Estimated Hrs Per Day: 1.5 hours per day Patient and/or Family Agrees t: Yes Safety Risks/Education Patient Education: Gait Training, Correct Positioning Teaching Recipient: Patient Teaching Methods: Discussion Response to Teaching: Verbalize Understanding Time/GCodes Time In: 1300 Time Out: 1330 Total Billed Treatment Time: 30 Total Billed Treatment 1, GT 20, EX 10. ROBERTO URIAS CHAIR INSTALLER Jun 18, 2021 14:18
[2021-06-18] MEDS: VENlafaxine XR 75 MG (EFFEXOR XR) CAP PO SCH (17:52)
[2021-06-18 19:46] VITALS: BP 158/66
[2021-06-18] MEDS: AMITRIPTYLINE 10 MG (ELAVIL) TAB PO SCH (20:50)
[2021-06-18] MEDS: TEMAZEPAM 15 MG (RESTORIL) CAP PO SCH (20:50)
[2021-06-19] MEDS: HYDROcodone/APAP 7.5 MG/325 MG (LORTAB, LORCET PLUS) TABLET PO PRN (03:15)
[2021-06-19] MEDS: GABAPENTIN 300 MG (NEURONTIN) CAP PO SCH (03:15)
[2021-06-19] MEDS: inSUlin ASPART (NovoLOG) 1 UNIT/0.01 ML (CHARGE PER UNIT) SC SCH ×2 (05:33→11:21)
[2021-06-19] MEDS: CYCLOBENZAPRINE 10 MG (FLEXERIL) TAB PO PRN ×2 (06:44→08:21)
[2021-06-19] MEDS ORDERED: OXC5T PO (06:57)
[2021-06-19] MEDS ORDERED: HYDR-3817 PO (06:57)
[2021-06-19] MEDS ORDERED: CYCL10TA25 PO (06:57)
[2021-06-19] MEDS ORDERED: DICL100G13 TOP (06:57)
[2021-06-19] MEDS ORDERED: GABA300C PO (06:57)
[2021-06-19] MEDS ORDERED: POTA-160 PO (06:57)
--- NOTE | 2021-06-19 06:59 | D/C HH Face to Face Order ---
D/C Face to Face Orders Reconcile Patient Problems Problems Reviewed?: Yes Instructions for Patient [facility] Patient Instructions/FollowUp: DR Chandan [facility] clinic 2 weeks Physician to follow Patient: Chandan Discharge Diet for Home: ADA Diet Patient Problems: Lumbar spine surgery DM Patient Data-Allergies,Ht & Wt Patient Allergies: Coded Allergies: No Known Drug Allergies (Unverified , 06/11/21) Home Health Need/Face to Face Date of Face to Face: Jun 19, 2021 Clinical Findings: Instability, Muscle weakness, Pain with ambulation, Unsteady gait, Non-healing wound I have seen Pt [id number]: Yes Discharged To: Home Diagnosis/Conditions: L spine stenosis Patient is Homebound due to: [place] fall risk due to instabilty, Muscle weakness, Pain w/ambulation Homebound Status Due to the above stated illness, injury or surgical procedure (medical condition or diagnosis) and associated clinical findings, the patient is homebound because of his/her inability to leave home except with aid of a supportive device and/or person AND leaving the home requires a considerable and taxing effort or is medically contraindicated. Pt req the following assistanc: Walker Home Health Nursing Orders Home Health Services Order: Nursing Services, Health Services Administrator-Evaluate & Treat, Physical Therapy-Evaluate & Treat, Wound Care-Eval/Treat (great toe) Certify Stmt I certify that this patient is under my care and that I, a nurse practitioner or a physician; a academic assistant working with me, had a face to face encounter that - meets the physician face to face encounter requirements with this patient as dated. CRIS CASTAÑEDA DO Jun 19, 2021 06:59
--- NOTE | 2021-06-19 07:00 | Discharge Summary ---
Diagnosis/Chief Complaint Date of Admission Jun 11, 2021 at 12:03 Date of Discharge Discharge Date: Jun 19, 2021 Discharge Diagnosis Assessment: s/p L3-4 LLIF/laminectomy/MIS PSIF on 06/05/[address] Walsh uncomplicated Multiple falls following discharge from [facility] Disruptive sleep cycle postoperatively Chronic Mechanical Lower Back Pain Lumbar spondylosis (most severe at L1-2) HTN GERD Diabetes Mellitus HLD Depression GERD Anxiety Left diabetic foot ulcer Plan: Aggressive rehab Blood sugar management Home meds Supportive care 06/12/2021: Diabetic foot ulcer management Oxycodone at night Maintain bowel regimen 06/13/2021: Supportive care Increase pain medication 06/14/2021: Supportive care Improved pain 06/15/2021: Supportive care 06/16/2021: Supportive care Pain control 06/17/2021: Pain control 06/18/2021: Monitor pain DC tomorrow (1) Lumbar stenosis (2) Diabetes (3) Hypertension Discharge Summary Discharge Physical Examination Allergies: Coded Allergies: No Known Drug Allergies (Unverified , 06/11/21) Vitals & I&Os Vital Signs Date Time Temp Pulse Resp B/P (MAP) Pulse Ox O2 Delivery O2 Flow Rate FiO2 06/19/21 14:42 36.1 84 18 115/56 92 Room Air General Appearance: Alert, Oriented X3, Cooperative Respiratory: Clear to Auscultation Cardiovascular: Regular Rate Neuro: Normal Gait, Normal Speech, Strength at 5/5 X4 Ext Psych/Mental Status: Mental Status NL Hospital Course Was the Problem List Reviewed?: Yes Pt had an uneventful 9 day hospital course after she was admitted after failing discharge home from lumbar spine surgery by Dr. Walsh at [facility]. She did very well in in-patient rehab. She required multiple medications on a frequent basis for pain control. Blood sugars remained reasonable but sliding scale. HgA1C was 7.7. Overall she did very well, had no other complaints during her stay, and she will have close follow up with me following rehab discharge. Labs (last 24 hrs) Laboratory Tests 06/11/21 13:45: White Blood Count 7.4, Red Blood Count 3.72L, Hemoglobin 11.6, Hematocrit 34L, Mean Corpuscular Volume 93, Mean Corpuscular Hemoglobin 31, Mean Corpuscular Hemoglobin Concent 34, Red Cell Distribution Width 14.6H, Platelet Count 238, Mean Platelet Volume 9.4, Immature Granulocyte % (Auto) 1, Neutrophils (%) (Auto) 64, Lymphocytes (%) (Auto) 27, Monocytes (%) (Auto) 7, Eosinophils (%) (Auto) 1, Basophils (%) (Auto) 0, Neutrophils # (Auto) 4.8, Lymphocytes # (Auto) 2.0, Monocytes # (Auto) 0.5, Eosinophils # (Auto) 0.1, Basophils # (Auto) 0.0, Immature Granulocyte # (Auto) 0.0, Sodium Level 135, Potassium Level 3.6, Chloride Level 95L, Carbon Dioxide Level 27, Anion Gap 13, Blood Urea Nitrogen 18, Creatinine 0.87, Estimat Glomerular Filtration Rate 68, BUN/Creatinine Ratio 21, Glucose Level 267H, Mean Blood Glucose 174H, Hemoglobin A1c 7.7H, Calcium Level 9.6, Corrected Calcium 9.7, Total Bilirubin 1.6H, Aspartate Amino Transf (AST/SGOT) 22, Alanine Aminotransferase (ALT/SGPT) 22, Alkaline Phosphatase 69, Total Protein 7.3, Albumin 3.9 06/11/21 15:13: Glucometer 254H 06/11/21 20:27: Glucometer 204H 06/12/21 05:44: Glucometer 176H 06/12/21 06:20: White Blood Count 5.4, Red Blood Count 3.51L, Hemoglobin 10.8L, Hematocrit 32L, Mean Corpuscular Volume 92, Mean Corpuscular Hemoglobin 31, Mean Corpuscular Hemoglobin Concent 34, Red Cell Distribution Width 14.6H, Platelet Count 178, Mean Platelet Volume 9.4, Immature Granulocyte % (Auto) 1, Neutrophils (%) (Auto) 55, Lymphocytes (%) (Auto) 33, Monocytes (%) (Auto) 8, Eosinophils (%) (Auto) 2, Basophils (%) (Auto) 0, Neutrophils # (Auto) 3.0, Lymphocytes # (Auto) 1.8, Monocytes # (Auto) 0.5, Eosinophils # (Auto) 0.1, Basophils # (Auto) 0.0, Immature Granulocyte # (Auto) 0.0, Sodium Level 136, Potassium Level 3.3L, Chloride Level 97L, Carbon Dioxide Level 23, Anion Gap 16H, Blood Urea Nitrogen 20H, Creatinine 0.74, Estimat Glomerular Filtration Rate 83, BUN/Creatinine Ratio 27, Glucose Level 178H, Calcium Level 9.2, Corrected Calcium 9.5, Total Bilirubin 1.7H, Aspartate Amino Transf (AST/SGOT) 22, Alanine Aminotransferase (ALT/SGPT) 23, Alkaline Phosphatase 73, Total Protein 6.7, Albumin 3.6 06/12/21 11:36: Glucometer 241H 06/12/21 15:27: Glucometer 199H 06/12/21 20:37: Glucometer 191H 06/13/21 05:39: Glucometer 164H 06/13/21 11:17: Glucometer 245H 06/13/21 15:26: Glucometer 223H 06/13/21 20:05: Glucometer 220H 06/14/21 05:26: Glucometer 154H 06/14/21 10:54: Glucometer 164H 06/14/21 15:20: Glucometer 204H 06/14/21 20:05: Glucometer 262H 06/15/21 06:09: Glucometer 127H 06/15/21 15:54: Glucometer 208H 06/15/21 21:32: Glucometer 278H 06/16/21 06:34: Glucometer 188H 06/16/21 11:20: Glucometer 180H 06/16/21 17:35: Glucometer 207H 06/16/21 21:26: Glucometer 187H 06/17/21 05:32: White Blood Count 4.9, Red Blood Count 2.96L, Hemoglobin 9.4L, Hematocrit 28L, Mean Corpuscular Volume 95, Mean Corpuscular Hemoglobin 32, Mean Corpuscular Hemoglobin Concent 34, Red Cell Distribution Width 14.6H, Platelet Count 157, Mean Platelet Volume 9.8, Immature Granulocyte % (Auto) 1, Neutrophils (%) (Auto) 58, Lymphocytes (%) (Auto) 34, Monocytes (%) (Auto) 5, Eosinophils (%) (Auto) 2, Basophils (%) (Auto) 0, Neutrophils # (Auto) 2.8, Lymphocytes # (Auto) 1.7, Monocytes # (Auto) 0.3, Eosinophils # (Auto) 0.1, Basophils # (Auto) 0.0, Immature Granulocyte # (Auto) 0.0, Sodium Level 139, Potassium Level 3.4L, Chloride Level 102, Carbon Dioxide Level 23, Anion Gap 14, Blood Urea Nitrogen 14, Creatinine 0.77, Estimat Glomerular Filtration Rate 79, BUN/Creatinine Ratio 18, Glucose Level 247H, Calcium Level 8.7, Corrected Calcium 9.3, Total Bilirubin 0.6, Aspartate Amino Transf (AST/SGOT) 8, Alanine Aminotransferase (ALT/SGPT) 11, Alkaline Phosphatase 73, Total Protein 5.9L, Albumin 3.2 06/17/21 05:37: Glucometer 230H 06/17/21 11:00: Glucometer 178H 06/17/21 17:02: Glucometer 192H 06/17/21 21:06: Glucometer 144H 06/18/21 05:42: Glucometer 133H 06/18/21 11:04: Glucometer 189H 06/18/21 15:22: Glucometer 178H 06/18/21 20:13: Glucometer 175H 06/19/21 05:25: Glucometer 129H 06/19/21 11:16: Glucometer 173H Pending Labs Laboratory Tests 06/11/21 13:45: White Blood Count 7.4, Red Blood Count 3.72, Hemoglobin 11.6, Hematocrit 34, Mean Corpuscular Volume 93, Mean Corpuscular Hemoglobin 31, Mean Corpuscular Hemoglobin Concent 34, Red Cell Distribution Width 14.6, Platelet Count 238, Mean Platelet Volume 9.4, Immature Granulocyte % (Auto) 1, Neutrophils (%) (Auto) 64, Lymphocytes (%) (Auto) 27, Monocytes (%) (Auto) 7, Eosinophils (%) (Auto) 1, Basophils (%) (Auto) 0, Neutrophils # (Auto) 4.8, Lymphocytes # (Auto) 2.0, Monocytes # (Auto) 0.5, Eosinophils # (Auto) 0.1, Basophils # (Auto) 0.0, Immature Granulocyte # (Auto) 0.0, Sodium Level 135, Potassium Level 3.6, Chloride Level 95, Carbon Dioxide Level 27, Anion Gap 13, Blood Urea Nitrogen 18, Creatinine 0.87, Estimat Glomerular Filtration Rate 68, BUN/Creatinine Ratio 21, Glucose Level 267, Mean Blood Glucose 174, Hemoglobin A1c 7.7, Calcium Level 9.6, Corrected Calcium 9.7, Total Bilirubin 1.6, Aspartate Amino Transf (AST/SGOT) 22, Alanine Aminotransferase (ALT/SGPT) 22, Alkaline Phosphatase 69, Total Protein 7.3, Albumin 3.9 06/11/21 15:13: Glucometer 254 06/11/21 20:27: Glucometer 204 06/12/21 05:44: Glucometer 176 06/12/21 06:20: White Blood Count 5.4, Red Blood Count 3.51, Hemoglobin 10.8, Hematocrit 32, Mean Corpuscular Volume 92, Mean Corpuscular Hemoglobin 31, Mean Corpuscular Hemoglobin Concent 34, Red Cell Distribution Width 14.6, Platelet Count 178, Mean Platelet Volume 9.4, Immature Granulocyte % (Auto) 1, Neutrophils (%) (Aut o) 55, Lymphocytes (%) (Auto) 33, Monocytes (%) (Auto) 8, Eosinophils (%) (Auto) 2, Basophils (%) (Auto) 0, Neutrophils # (Auto) 3.0, Lymphocytes # (Auto) 1.8, Monocytes # (Auto) 0.5, Eosinophils # (Auto) 0.1, Basophils # (Auto) 0.0, Immature Granulocyte # (Auto) 0.0, Sodium Level 136, Potassium Level 3.3, Chloride Level 97, Carbon Dioxide Level 23, Anion Gap 16, Blood Urea Nitrogen 20, Creatinine 0.74, Estimat Glomerular Filtration Rate 83, BUN/Creatinine Ratio 27, Glucose Level 178, Calcium Level 9.2, Corrected Calcium 9.5, Total Bilirubin 1.7, Aspartate Amino Transf (AST/SGOT) 22, Alanine Aminotransferase (ALT/SGPT) 23, Alkaline Phosphatase 73, Total Protein 6.7, Albumin 3.6 06/12/21 11:36: Glucometer 241 06/12/21 15:27: Glucometer 199 06/12/21 20:37: Glucometer 191 06/13/21 05:39: Glucometer 164 06/13/21 11:17: Glucometer 245 06/13/21 15:26: Glucometer 223 06/13/21 20:05: Glucometer 220 06/14/21 05:26: Glucometer 154 06/14/21 10:54: Glucometer 164 06/14/21 15:20: Glucometer 204 06/14/21 20:05: Glucometer 262 06/15/21 06:09: Glucometer 127 06/15/21 15:54: Glucometer 208 06/15/21 21:32: Glucometer 278 06/16/21 06:34: Glucometer 188 06/16/21 11:20: Glucometer 180 06/16/21 17:35: Glucometer 207 06/16/21 21:26: Glucometer 187 06/17/21 05:32: White Blood Count 4.9, Red Blood Count 2.96, Hemoglobin 9.4, Hematocrit 28, Mean Corpuscular Volume 95, Mean Corpuscular Hemoglobin 32, Mean Corpuscular Hemoglobin Concent 34, Red Cell Distribution Width 14.6, Platelet Count 157, Mean Platelet Volume 9.8, Immature Granulocyte % (Auto) 1, Neutrophils (%) (Auto) 58, Lymphocytes (%) (Auto) 34, Monocytes (%) (Auto) 5, Eosinophils (%) (Auto) 2, Basophils (%) (Auto) 0, Neutrophils # (Auto) 2.8, Lymphocytes # (Auto) 1.7, Monocytes # (Auto) 0.3, Eosinophils # (Auto) 0.1, Basophils # (Auto) 0.0, Immature Granulocyte # (Auto) 0.0, Sodium Level 139, Potassium Level 3.4, Chloride Level 102, Carbon Dioxide Level 23, Anion Gap 14, Blood Urea Nitrogen 14, Creatinine 0.77, Estimat Glomerular Filtration Rate 79, BUN/Creatinine Ratio 18, Glucose Level 247, Calcium Level 8.7, Corrected Calcium 9.3, Total Bilirubin 0.6, Aspartate Amino Transf (AST/SGOT) 8, Alanine Aminotransferase (ALT/SGPT) 11, Alkaline Phosphatase 73, Total Protein 5.9, Albumin 3.2 06/17/21 05:37: Glucometer 230 06/17/21 11:00: Glucometer 178 06/17/21 17:02: Glucometer 192 06/17/21 21:06: Glucometer 144 06/18/21 05:42: Glucometer 133 06/18/21 11:04: Glucometer 189 06/18/21 15:22: Glucometer 178 06/18/21 20:13: Glucometer 175 06/19/21 05:25: Glucometer 129 06/19/21 11:16: Glucometer 173 Discharge Home Medications: Active Scripts Active Neurontin (Gabapentin) 300 Mg Capsule 300 Mg PO UD Take at bedtime and 0300 nightly Klor-Con 10 (Potassium Chloride) 10 Meq Tablet.er 10 Meq PO DAILY Oxyir Tablet (Oxycodone HCl) 5 Mg Tab 5 Mg PO Q6H PRN Use for nighttime pain only Diclofenac Sodium 100 Gm Gel..gram. 0 Gm TOP QID Cyclobenzaprine HCl 10 Mg Tablet 10 Mg PO TID PRN Hydrocodone-Acetamin 7.5-325 (Hydrocodone/Acetaminophen) 1 Each Tablet 1 Ea PO Q4H PRN Reported Aripiprazole 2 Mg Tablet 2 Mg PO HS Venlafaxine HCl ER (Venlafaxine HCl) 150 Mg Cap.er.24h 150 Mg PO HS Omeprazole 20 Mg Capsule.dr 20 Mg PO DAILY Lisinopril-Hctz 20-12.5 mg Tab (Lisinopril/Hydrochlorothiazide) 1 Each Tablet 1 Ea PO DAILY ALPRAZolam 0.25 Mg Tablet 0.25 Mg PO BID PRN Farxiga (Dapagliflozin Propanediol) 10 Mg Tablet 10 Mg PO DAILY Amitriptyline HCl 10 Mg Tablet 10 Mg PO HS Glimepiride 4 Mg Tablet 4 Mg PO BID Carvedilol 25 Mg Tablet 25 Mg PO BID Temazepam 15 Mg Capsule 15 Mg PO HS Instructions to patient/family Please see electronic discharge instructions given to patient. Diagnosis/Problems Diagnosis/Problems (1) Lumbar stenosis (2) Diabetes (3) Hypertension CRIS CASTAÑEDA DO Jun 19, 2021 07:00
[2021-06-19 07:57] VITALS: BP 115/56
[2021-06-19] MEDS: EMPAGLIFLOZIN 10 MG TABLET (JARDIANCE) PO SCH (08:20)
[2021-06-19] MEDS: PANTOPRAZOLE 20 MG TABLET (PROTONIX) PO SCH (08:20)
[2021-06-19] MEDS: GLIMEPIRIDE 4 MG (AMARYL) TAB PO SCH (08:21)
[2021-06-19] MEDS: KCL 10 MEQ TAB (MICRO K) PO SCH (08:21)
[2021-06-19] MEDS: lisINopril 20 MG (PRINIVIL) TABLET PO SCH (08:21)
[2021-06-19] MEDS: DOCUSATE SODIUM 100 MG (COLACE) CAP PO SCH (08:24)
[2021-06-19] MEDS: polyethylene glycoL POWDER 17 GM (MIRALAX) PACK PO SCH (08:24)
[2021-06-19] MEDS: SENNA W/DOCUSATE (SENOKOT S) TABLET PO SCH (08:25)
[2021-06-19] MEDS: DICLOFENAC 1% GEL 100 GM (VOLTAREN) TUBE TOP SCH (08:26)
--- NOTE | 2021-06-19 09:14 | Therapy Team Discharge Summary ---
Therapy Discharge Summary Discharge Recommendations Date of Discharge Physical Therapy Patient came to rehab with lumbar laminectomy and fusion. Upon evaluation patient performed rolling and supine <-> sit with independence, sit <-> stand and transfers with CGA, car transfer CGA, ambulated 150' with a rolling walker with CGA (including 50' with at least 2 turns of 90 degrees and 10' over an uneven surface), went up and down 1 step using a rolling walker with CGA and picked up an object from the floor using a high school music director with CGA. Patient has been performing bed mobility and transfer training, balance and endurance training, functional strengthening, stair training, gait training, and education. 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 Now, patient performs rolling and supine <-> sit with independence, sit <-> stand and transfers independent, setup with car transfer, ambulates 150' with a rolling walker with independence (including 50' with at least 2 turns of 90 degrees and 10' over an uneven surface), can go up and down 8 steps using 2 handrails with SBA, and can pharmacy picking tech an object from the floor with a high school music director with setup. Patient is being discharged from this facility today and will be discharged from PT at this time. Roll Left to Right (QC): 6 Sit to Lying (QC): 6 Lying to Sitting/Side of Bed(Q: 6 Sit to Stand (QC): 6 Chair/Bew-tw-Wqrca Xfer(QC): 6 Toilet Transfer (QC): 6 Car Transfer (QC): 5 Does the Patient Walk: Yes Walk 10 feet (QC): 6 Walk 50 ft with 2 Turns(QC): 6 Walk 150 ft (QC): 6 Walking 10ft on uneven surface: 6 Gait Assistive Device: FWW Does the Pt Use a Wheelchair: No Wheel 50 ft with 2 turns (QC): 9 Wheel 150 ft (QC): 9 Type of Wheelchair: N/A #of Steps: 8 1 Step (curb) (QC): 5 4 Steps (QC): 5 12 Steps (QC): 7 Balance Sitting Static: Normal Balance Sitting Dynamic: Normal Balance-Standing Static: Good Picking up an Object (QC): 5 Occupational Therapy Decreased Activ Tolerance, Decreased UE Strength, Impaired I ADL's Eating (QC): 6 Oral Hygiene (QC): 6 Shower/Bathe Self (QC): 5 Upper Body Dressing (QC): 4 (cues for back brace) Lower Body Dressing (QC): 6 On/Off Footwear (QC): 5 Toileting Hygiene (QC): 6 PT Alf Goals Skill Training Program Coordinator Goals PT Alf Goals Time Frame: Jul 02, 2021 Roll Left to Right (QC): 6 Sit to Lying (QC): 6 Lying-Sitting on Side/Bed(QC): 6 Sit to Stand (QC): 6 Chair/Krq-uu-Lnaro Xfer(QC): 6 Car Transfer (QC): 6 Does the Patient Walk: Yes Walk 10 feet (QC): 6 Walk 10ft-Uneven Surface(QC): 6 Walk 50ft with 2 Turns (QC): 6 Walk 150 ft (QC): 6 Wheel 50 feet with 2 turns (QC: 9 1 Step (curb) (QC): 4 4 Steps (QC): 4 12 Steps (QC): 88 Picking up an Object (QC): 6 (using high school music director) OT Skill Training Program Coordinator Goals Alf Goals Time Frame: Jun 28, 2021 Eating (QC): 6 (met) Oral Hygiene (QC): 6 (met) Shower/Bathe Self (QC): 6 (not met) Upper Body Dressing (QC): 6 (not met) Lower Body Dressing (QC): 6 (met) On/Off Footwear (QC): 6 (not met) Toileting Hygiene (QC): 6 (met) Toilet/Commode Transfer (QC): 6 1=Demonstrate adherence to instructed precautions during ADL tasks. 2=Patient will verbalize/demonstrate understanding of assistive devices/modifications for ADL. 3=Patient will improve strength/tolerance for activity to enable patient to perform ADL's. SAUL HERNANDEZ PT Jun 19, 2021 09:13
--- NOTE | 2021-06-19 14:03 | Therapy Team Discharge Summary ---
Therapy Discharge Summary Discharge Recommendations Date of Discharge Physical Therapy Roll Left to Right (QC): 6 Sit to Lying (QC): 6 Lying to Sitting/Side of Bed(Q: 6 Sit to Stand (QC): 6 Chair/Duc-qs-Jsabe Xfer(QC): 6 Toilet Transfer (QC): 6 Car Transfer (QC): 5 Does the Patient Walk: Yes Walk 10 feet (QC): 6 Walk 50 ft with 2 Turns(QC): 6 Walk 150 ft (QC): 6 Walking 10ft on uneven surface: 6 Gait Assistive Device: FWW Does the Pt Use a Wheelchair: No Wheel 50 ft with 2 turns (QC): 9 Wheel 150 ft (QC): 9 Type of Wheelchair: N/A #of Steps: 8 1 Step (curb) (QC): 5 4 Steps (QC): 5 12 Steps (QC): 7 Balance Sitting Static: Normal Balance Sitting Dynamic: Normal Balance-Standing Static: Good Picking up an Object (QC): 5 Occupational Therapy Pt admitted to [facility] s/p lumbar laminectomy and fusion. At [facility], pt was independent with ADLs and functional mobility, using FWW as needed. Upon initial evaluation, pt was independent with eating, required supervision with oral care, min A showering and UE dressing, max A LE dressing and footwear and SBA with toileting. OT txs focused on increasing BUE strength and activity tolerance, and increasing safety and independence with ADLs and functional mobility. Pt made progress towards goals, but only attained LTGs for eating, oral care, LE dr essing and toileting. Pt to discharge home, d/c from OT Decreased Activ Tolerance, Decreased UE Strength, Impaired I ADL's Eating (QC): 6 Oral Hygiene (QC): 6 Shower/Bathe Self (QC): 5 Upper Body Dressing (QC): 4 (cues for back brace) Lower Body Dressing (QC): 6 On/Off Footwear (QC): 5 Toileting Hygiene (QC): 6 PT Fci Goals Fci Goals PT Fci Goals Time Frame: Jul 02, 2021 Roll Left to Right (QC): 6 Sit to Lying (QC): 6 Lying-Sitting on Side/Bed(QC): 6 Sit to Stand (QC): 6 Chair/Kju-tp-Fxfgc Xfer(QC): 6 Car Transfer (QC): 6 Does the Patient Walk: Yes Walk 10 feet (QC): 6 Walk 10ft-Uneven Surface(QC): 6 Walk 50ft with 2 Turns (QC): 6 Walk 150 ft (QC): 6 Wheel 50 feet with 2 turns (QC: 9 1 Step (curb) (QC): 4 4 Steps (QC): 4 12 Steps (QC): 88 Picking up an Object (QC): 6 (using director systems) OT Fci Goals Fci Goals Time Frame: Jun 28, 2021 Eating (QC): 6 (met) Oral Hygiene (QC): 6 (met) Shower/Bathe Self (QC): 6 (not met) Upper Body Dressing (QC): 6 (not met) Lower Body Dressing (QC): 6 (met) On/Off Footwear (QC): 6 (not met) Toileting Hygiene (QC): 6 (met) Toilet/Commode Transfer (QC): 6 1=Demonstrate adherence to instructed precautions during ADL tasks. 2=Patient will verbalize/demonstrate understanding of assistive devices/modifica tions for ADL. 3=Patient will improve strength/tolerance for activity to enable patient to perform ADL's. AN ARMENDARIZ OT Jun 19, 2021 14:03
[2021-06-19 14:42] VITALS: BP 115/56
== END 2021-06-19 12:40 | disposition home health service (06) | DRG 552 ==
PROVIDERS: ADMIT Internal Medicine; ATTEND Internal Medicine
DX: M47.26 Other spondylosis with radiculopathy, lumbar region (principal); Z98.1 Arthrodesis status; Z91.81 History of falling; E11.621 Type 2 diabetes mellitus with foot ulcer; E11.40 Type 2 diabetes mellitus with diabetic neuropathy, unspecified; E11.65 Type 2 diabetes mellitus with hyperglycemia; L97.529 Non-pressure chronic ulcer of other part of left foot with unspecified severity; G47.29 Other circadian rhythm sleep disorder; I10 Essential (primary) hypertension; F41.9 Anxiety disorder, unspecified; F32.A Depression, unspecified; K21.9 Gastro-esophageal reflux disease without esophagitis; M19.91 Primary osteoarthritis, unspecified site; E78.5 Hyperlipidemia, unspecified; Z79.84 Long term (current) use of oral hypoglycemic drugs; Z85.41 Personal history of malignant neoplasm of cervix uteri
CPT/HCPCS: 36415; 80053; 82947; 83036; 85025